=== PATIENT | female | born 1950 | race Caucasian/White ===

== ENCOUNTER 2018-08-28 10:30 | Outpatient (RCR) | payer MEDICARE, OTHER, SELFPAY ==
--- NOTE | 2018-05-01 17:43 | PT.OIE ---
Current Diagnoses Low back pain (05/01/18) Weakness (05/01/18) Past Medical History (Last Updated 05/01/18 @ 17:40 by Nichelle Hernandez, PT) Neck pain (Acute) Past Surgical History (Last Reviewed 05/01/18 @ 17:40 by Nichelle Hernandez, PT) Status post breast biopsy Status post delivery Status post delivery Status post hysterectomy (07/07/12) Provider Visit Care Team Role Provider Type Nory Holman MD Attending Provider Physician Primary Care Provider Specialty: [facility] Address: [address] [place] [address] Email: [email or web address] Physical Therapy Initial Evaluation PT-OP-A Visit Information Start: 05/01/18 09:12 Freq: Status: Active Protocol: Document 05/01/18 09:45 [facility] (Rec: 05/01/18 10:40 [facility] [id number]) Out-Patient Physical Therapy Visit Information Visit Information Visit Type Initial Evaluation Visit Start Time 09:45 Visit Stop Time 10:30 Total Visit Minutes 45 Visit Number 1 Number of MECHANICAL INSPECTOR Visits 0 PT-OP-B Current Condition Start: 05/01/18 09:12 Freq: Status: Active Protocol: Document 05/01/18 09:45 [facility] (Rec: 05/01/18 17:37 [facility] [id number]) Current Condition History of Current Condition History of Current Condition Pt reports last summer she was doing yard work all summer and in August, she woke up one morning and her back had gone out She could not stand up and has tried to be active and stretch to help with pain. Reports sharp pains are less but does not have her normal mobility and still gets caught hunched over sometimes and has to roll up the wall to get upright. She had a dexascan, which the MD told her showed no stenosis and her back looks great & bone density is good. Pt walks 2 miles 3 days a week along the [place]. Treatment Goals Patient/Caregiver Goals Make sure to not lose her mobility, be able to play with her 4 & 8 year old grandkids, stairs without pain, vacuum and dig in garden without pain . PT-OP-C Subjective Start: 05/01/18 09:12 Freq: Status: Active Protocol: Document 05/01/18 09:45 [facility] (Rec: 05/01/18 17:37 [facility] [id number]) Patient Questionnaires Oswestry Low Back Index Oswestry Score 10 Oswestry Impairment 20 to 39% Impaired (Score 20- 39) OP-PT Pain Assessment Pain Assessment Grid Paper Pain Assessment Grid Completed Yes Location Left Back Pain Location Details L>R LB & hip Intensity 5 Scale Used Numeric (1 - 10) Description Burning Sharp Frequency Intermittent Other Pain Aggravating Factors getting up in AM, inactivity ( sit extended) Other Pain Alleviating Factors roll up the wall, activity, hot bath, Advil Home Pain Medication Use Home Pain Medication Frequency Advil prn PT-OP-J Posture/Palpation/Skin Start: 05/01/18 09:12 Freq: Status: Active Protocol: Document 05/01/18 09:45 [facility] (Rec: 05/01/18 10:40 [facility] [id number]) Posture Evaluation [facility] Postural Classification System [facility] Postural Classifications Anterior/Posterior Vertebral Compression Test 1 Elbow Flexion Test 5 Lumbar Protective Mechanism Left AP 1 Lumbar Protective Mechanism Right AP 3 Lumbar Protective Mechanism Left PA 1 Lumbar Protective Mechanism Right PA 1 Palpation Assessment Location One Palpation Location Lumbar Palpation Findings Soft Tissue Tightness Tenderness Palpation Details QL, ES, glutes B PT-OP-K Range of Motion Start: 05/01/18 09:12 Freq: Status: Active Protocol: Document 05/01/18 09:45 [facility] (Rec: 05/01/18 10:40 [facility] [id number]) Lumbar Spine Range of Motion Lumbar Spine Active Degrees Flexion 43 Extension 20 Lateral Flexion Left 30 Lateral Flexion Right 25 Comments tight L with B lat flex PT-OP-L Special Tests Start: 05/01/18 09:12 Freq: Status: Active Protocol: Document 05/01/18 09:45 [facility] (Rec: 05/01/18 10:40 [facility] [id number]) Special Tests Lumbar Spine Special Tests Slump Test Results neg Straight Leg Raise Test Results neg B Comments NEG EXT SIT PT-OP-M Strength Start: 05/01/18 09:12 Freq: Status: Active Protocol: Document 05/01/18 09:45 [facility] (Rec: 05/01/18 10:40 [facility] [id number]) Hip Strength Hip Manual Muscle Testing Right Flexion (L2) 4 Good Extension (S1) 4- Good- Abduction 4+ Good+ External Rotation 4 Good Internal Rotation 4+ Good+ Left Flexion (L2) 4 Good Extension (S1) 4- Good- Abduction 4+ Good+ External Rotation 4 Good Internal Rotation 4+ Good+ Comments pain w/flex & abd in groin Knee Strength Knee Manual Muscle Testing Right Flexion (S2) 5 Normal Extension (L3) 5 Normal Left Flexion (S2) 5 Normal Extension (L3) 5 Normal Ankle/Foot Strength Ankle and Foot Manual Muscle Testing Right Dorsiflexion (L4) 5 Normal Left Dorsiflexion (L4) 5 Normal PT-OP-Q Treatments Start: 05/01/18 09:12 Freq: Status: Active Protocol: Document 05/01/18 09:45 [facility] (Rec: 05/01/18 10:40 [facility] [id number]) Therapeutic Exercises Supine Exercises 2 Supine Exercise Name LTR Side bilateral 1 Supine Exercise Name DKTC Side bilateral Self-Care/Home Management Treatment Education Other Education unlocking knees for posture, importance of posture PT-OP-R Modalities Start: 05/01/18 09:12 Freq: Status: Active Protocol: Document 05/01/18 09:45 [facility] (Rec: 05/01/18 10:40 [facility] [id number]) Hot Pack/Cold Pack Treatment Hot Pack Location LS Patient Position Hooklying Treatment Duration (minutes) 15 PT-OP-T Assessment and Plan Start: 05/01/18 09:12 Freq: Status: Active Protocol: Document 05/01/18 09:45 [facility] (Rec: 05/01/18 17:43 [facility] [id number]) Physical Therapy Assessment Rehab Potential Rehabilitation Potential Good Evaluation Complexity Number of Personal Factors/Comorbidities 1-2 Number of Body Systems Impaired 4 or More Clinical Presentation at Evaluation Stable Impairments Impairments Functional Activities Gait Pain Posture Strength Goals Four Impairment MMT Exceptional Student Education Aide Goal (LTG) 5/5 to allow pt to participate in all of her normal activities LTG Duration 07/01/18 Three Impairment posture Short Term Goal (STG) Pt will present with good posture without cueing STG Duration 05/31/18 Two Impairment pain Short Term Goal (STG) at worst 3/5 STG Duration 05/31/18 Prison Goal (LTG) at worst 1/5 LTG Duration 07/01/18 One Impairment JANIS Exceptional Student Education Aide Goal (LTG) 0 to show ability to do functional tasks LTG Duration by 07/01/18 Physical Therapy Plan Frequency and Duration Frequency of Treatment 2x/Week Duration of Treatment 2 months Plan of Care Start Date 05/01/18 Plan of Care End Date 07/01/18 Therapeutic Interventions Therapeutic Interventions Aquatic Therapy Balance Training Gait Training Home Exercise Program Joint Mobilizations Manual Therapy Soft Tissue Mobilization Taping Therapeutic Exercises Modalities Cold Pack/Ice Massage Electric Stimulation Hot Packs Traction- Mechanical Ultrasound Next Visit Focus/Plan Next Note Type Treatment Note Next Visit Plan Advance supine core, squats, lunges, STM & pelvic mobilizations prn Please Sign and Return: I have reviewed this Plan of Care and certify that the skilled therapy services above are required to meet the patient?s needs. Physician Signature Date Printed Name and Credentials Clinical Instructor Signature Printed Name and Credentials
--- NOTE | 2018-05-01 17:43 | PT.OPPOC ---
Current Diagnoses Low back pain (05/01/18) Weakness (05/01/18) Provider Visit Care Team Role Provider Type Nory Holman MD Attending Provider Physician Primary Care Provider Specialty: Family Practice Address: [address] [place] [address], [id number] Email: [email or web address] Plan Of Care PT-OP-T Assessment and Plan Start: 05/01/18 09:12 Freq: Status: Active Protocol: Document 05/01/18 09:45 [facility] (Rec: 05/01/18 17:43 [facility] [id number]) Physical Therapy Assessment Rehab Potential Rehabilitation Potential Good Evaluation Complexity Number of Personal Factors/Comorbidities 1-2 Number of Body Systems Impaired 4 or More Clinical Presentation at Evaluation Stable Impairments Impairments Functional Activities Gait Pain Posture Strength Goals Four Impairment MMT Angle Shear Operator Goal (LTG) 5/5 to allow pt to participate in all of her normal activities LTG Duration 07/01/18 Three Impairment posture Short Term Goal (STG) Pt will present with good posture without cueing STG Duration 05/31/18 Two Impairment pain Short Term Goal (STG) at worst 3/5 STG Duration 05/31/18 Custodial Goal (LTG) at worst 1/5 LTG Duration 07/01/18 One Impairment JANIS Angle Shear Operator Goal (LTG) 0 to show ability to do functional tasks LTG Duration by 07/01/18 Physical Therapy Plan Frequency and Duration Frequency of Treatment 2x/Week Duration of Treatment 2 months Plan of Care Start Date 05/01/18 Plan of Care End Date 07/01/18 Therapeutic Interventions Therapeutic Interventions Aquatic Therapy Balance Training Gait Training Home Exercise Program Joint Mobilizations Manual Therapy Soft Tissue Mobilization Taping Therapeutic Exercises Modalities Cold Pack/Ice Massage Electric Stimulation Hot Packs Traction- Mechanical Ultrasound Next Visit Focus/Plan Next Note Type Treatment Note Next Visit Plan Advance supine core, squats, lunges, STM & pelvic mobilizations prn Plan of Care Dates Plan of Care Start Date 05/01/18 Plan of Care End Date 07/01/18 Please Sign and Return: I have reviewed this Plan of Care and certify that the skilled therapy services above are required to meet the patient?s needs. Physician Signature Date Printed Name and Credentials Clinical Instructor Signature Printed Name and Credentials
--- NOTE | 2018-05-27 16:42 | PT.OTN ---
Current Diagnoses Low back pain (05/27/18) Physical Therapy Treatment Note PT-OP-A Visit Information Start: 05/01/18 09:12 Freq: Status: Active Protocol: Document 05/27/18 10:27 [facility] (Rec: 05/27/18 16:41 [facility] [id number]) Out-Patient Physical Therapy Visit Information Visit Information Visit Type Treatment Note Visit Start Time 10:30 Visit Stop Time 11:25 Total Visit Minutes 55 Visit Number 2 Number of NEEDLE GRINDER Visits 0 PT-OP-B Current Condition Start: 05/01/18 09:12 Freq: Status: Active Protocol: Document 05/01/18 09:45 [facility] (Rec: 05/01/18 17:37 [facility] [id number]) Current Condition History of Current Condition History of Current Condition Pt reports last summer she was doing yard work all summer and in August, she woke up one morning and her back had gone out She could not stand up and has tried to be active and stretch to help with pain. Reports sharp pains are less but does not have her normal mobility and still gets caught hunched over sometimes and has to roll up the wall to get upright. She had a dexascan, which the MD told her showed no stenosis and her back looks great & bone density is good. Pt walks 2 miles 3 days a week along the [place]. Treatment Goals Patient/Caregiver Goals Make sure to not lose her mobility, be able to play with her 4 & 8 year old grandkids, stairs without pain, vacuum and dig in garden without pain . PT-OP-C Subjective Start: 05/01/18 09:12 Freq: Status: Active Protocol: Document 05/27/18 10:27 [facility] (Rec: 05/27/18 16:41 [facility] [id number]) OP-PT Subjective Patient Comments Patient Comments Noncompliance with exercises so far PT-OP-J Posture/Palpation/Skin Start: 05/01/18 09:12 Freq: Status: Active Protocol: Document 05/01/18 09:45 [facility] (Rec: 05/01/18 10:40 [facility] [id number]) Posture Evaluation [facility] Postural Classification System [facility] Postural Classifications Anterior/Posterior Vertebral Compression Test 1 Elbow Flexion Test 5 Lumbar Protective Mechanism Left AP 1 Lumbar Protective Mechanism Right AP 3 Lumbar Protective Mechanism Left PA 1 Lumbar Protective Mechanism Right PA 1 Palpation Assessment Location One Palpation Location Lumbar Palpation Findings Soft Tissue Tightness Tenderness Palpation Details QL, ES, glutes B PT-OP-K Range of Motion Start: 05/01/18 09:12 Freq: Status: Active Protocol: Document 05/01/18 09:45 [facility] (Rec: 05/01/18 10:40 [facility] [id number]) Lumbar Spine Range of Motion Lumbar Spine Active Degrees Flexion 43 Extension 20 Lateral Flexion Left 30 Lateral Flexion Right 25 Comments tight L with B lat flex PT-OP-L Special Tests Start: 05/01/18 09:12 Freq: Status: Active Protocol: Document 05/01/18 09:45 [facility] (Rec: 05/01/18 10:40 [facility] [id number]) Special Tests Lumbar Spine Special Tests Slump Test Results neg Straight Leg Raise Test Results neg B Comments NEG EXT SIT PT-OP-M Strength Start: 05/01/18 09:12 Freq: Status: Active Protocol: Document 05/01/18 09:45 [facility] (Rec: 05/01/18 10:40 [facility] [id number]) Hip Strength Hip Manual Muscle Testing Right Flexion (L2) 4 Good Extension (S1) 4- Good- Abduction 4+ Good+ External Rotation 4 Good Internal Rotation 4+ Good+ Left Flexion (L2) 4 Good Extension (S1) 4- Good- Abduction 4+ Good+ External Rotation 4 Good Internal Rotation 4+ Good+ Comments pain w/flex & abd in groin Knee Strength Knee Manual Muscle Testing Right Flexion (S2) 5 Normal Extension (L3) 5 Normal Left Flexion (S2) 5 Normal Extension (L3) 5 Normal Ankle/Foot Strength Ankle and Foot Manual Muscle Testing Right Dorsiflexion (L4) 5 Normal Left Dorsiflexion (L4) 5 Normal PT-OP-Q Treatments Start: 05/01/18 09:12 Freq: Status: Active Protocol: Document 05/27/18 10:27 [facility] (Rec: 05/27/18 16:41 [facility] [id number]) Therapeutic Exercises Supine Exercises 3 Supine Exercise Name iso single leg hip flex 2 Supine Exercise Name LTR Side bilateral Comments focus on core 1 Supine Exercise Name DKTC Side bilateral Prone Exercises 1 Prone Exercise Name Hip ER Resistance L1 Equipment Used tband Reps/Minutes prone Therapeutic Activity Therapeutic Activity 2 Comments edu for AM exercises & importance; Discussed not staying in seated position for extended 1 Name sitting posture Comments supported sitting and unsupported Manual Therapy Treatment Joint Mobilizations 2 Joint sacrum Direction caudal & R UPA FM Body Position Prone 1 Joint hip Direction on axis ER FM Comments B w/ prolonged hold after Manual Techniques 1 Type core faciliation Comments w/diagonal pattern use of UEs PT-OP-R Modalities Start: 05/01/18 09:12 Freq: Status: Active Protocol: Document 05/27/18 10:27 [facility] (Rec: 05/27/18 16:41 [facility] [id number]) Hot Pack/Cold Pack Treatment Hot Pack Location LS Patient Position Hooklying Treatment Duration (minutes) 15 PT-OP-T Assessment and Plan Start: 05/01/18 09:12 Freq: Status: Active Protocol: Document 05/27/18 10:27 [facility] (Rec: 05/27/18 16:41 [facility] [id number]) Physical Therapy Assessment Goals Four Impairment MMT Custodial Goal (LTG) 5/5 to allow pt to participate in all of her normal activities LTG Duration 07/01/18 Three Impairment posture Short Term Goal (STG) Pt will present with good posture without cueing STG Duration 05/31/18 Two Impairment pain Short Term Goal (STG) at worst 3/5 STG Duration 05/31/18 Custodial Goal (LTG) at worst 1/5 LTG Duration 07/01/18 One Impairment JANIS Custodial Goal (LTG) 0 to show ability to do functional tasks LTG Duration by 07/01/18 Assessment Summary Assessment Pt had improvement of core activation after manual rx & with facilitation after diagonal facilitation. Physical Therapy Plan Frequency and Duration Frequency of Treatment 2x/Week Duration of Treatment 2 months Plan of Care Start Date 05/01/18 Plan of Care End Date 07/01/18 Next Visit Focus/Plan Next Note Type Treatment Note Next Visit Plan Cont to advance core & facilitation
--- NOTE | 2018-05-29 15:49 | PT.OTN ---
Current Diagnoses Low back pain (05/29/18) Physical Therapy Treatment Note PT-OP-A Visit Information Start: 05/01/18 09:12 Freq: Status: Active Protocol: Document 05/29/18 13:04 [facility] (Rec: 05/29/18 13:06 [facility] [id number]) Out-Patient Physical Therapy Visit Information Visit Information Visit Type Treatment Note Visit Start Time 10:30 Visit Stop Time 11:30 Total Visit Minutes 60 Visit Number 3 Number of BUILDING TRADES TEACHER Visits 0 PT-OP-B Current Condition Start: 05/01/18 09:12 Freq: Status: Active Protocol: Document 05/01/18 09:45 [facility] (Rec: 05/01/18 17:37 [facility] [id number]) Current Condition History of Current Condition History of Current Condition Pt reports last summer she was doing yard work all summer and in August, she woke up one morning and her back had gone out She could not stand up and has tried to be active and stretch to help with pain. Reports sharp pains are less but does not have her normal mobility and still gets caught hunched over sometimes and has to roll up the wall to get upright. She had a dexascan, which the MD told her showed no stenosis and her back looks great & bone density is good. Pt walks 2 miles 3 days a week along the [place]. Treatment Goals Patient/Caregiver Goals Make sure to not lose her mobility, be able to play with her 4 & 8 year old grandkids, stairs without pain, vacuum and dig in garden without pain . PT-OP-C Subjective Start: 05/01/18 09:12 Freq: Status: Active Protocol: Document 05/29/18 13:04 [facility] (Rec: 05/29/18 15:49 [facility] [id number]) OP-PT Subjective Patient Comments Patient Comments Reports she hasn't tried exercises yet PT-OP-J Posture/Palpation/Skin Start: 05/01/18 09:12 Freq: Status: Active Protocol: Document 05/01/18 09:45 [facility] (Rec: 05/01/18 10:40 [facility] [id number]) Posture Evaluation [facility] Postural Classification System [facility] Postural Classifications Anterior/Posterior Vertebral Compression Test 1 Elbow Flexion Test 5 Lumbar Protective Mechanism Left AP 1 Lumbar Protective Mechanism Right AP 3 Lumbar Protective Mechanism Left PA 1 Lumbar Protective Mechanism Right PA 1 Palpation Assessment Location One Palpation Location Lumbar Palpation Findings Soft Tissue Tightness Tenderness Palpation Details QL, ES, glutes B PT-OP-K Range of Motion Start: 05/01/18 09:12 Freq: Status: Active Protocol: Document 05/01/18 09:45 [facility] (Rec: 05/01/18 10:40 [facility] [id number]) Lumbar Spine Range of Motion Lumbar Spine Active Degrees Flexion 43 Extension 20 Lateral Flexion Left 30 Lateral Flexion Right 25 Comments tight L with B lat flex PT-OP-L Special Tests Start: 05/01/18 09:12 Freq: Status: Active Protocol: Document 05/01/18 09:45 [facility] (Rec: 05/01/18 10:40 [facility] [id number]) Special Tests Lumbar Spine Special Tests Slump Test Results neg Straight Leg Raise Test Results neg B Comments NEG EXT SIT PT-OP-M Strength Start: 05/01/18 09:12 Freq: Status: Active Protocol: Document 05/01/18 09:45 [facility] (Rec: 05/01/18 10:40 [facility] [id number]) Hip Strength Hip Manual Muscle Testing Right Flexion (L2) 4 Good Extension (S1) 4- Good- Abduction 4+ Good+ External Rotation 4 Good Internal Rotation 4+ Good+ Left Flexion (L2) 4 Good Extension (S1) 4- Good- Abduction 4+ Good+ External Rotation 4 Good Internal Rotation 4+ Good+ Comments pain w/flex & abd in groin Knee Strength Knee Manual Muscle Testing Right Flexion (S2) 5 Normal Extension (L3) 5 Normal Left Flexion (S2) 5 Normal Extension (L3) 5 Normal Ankle/Foot Strength Ankle and Foot Manual Muscle Testing Right Dorsiflexion (L4) 5 Normal Left Dorsiflexion (L4) 5 Normal PT-OP-Q Treatments Start: 05/01/18 09:12 Freq: Status: Active Protocol: Document 05/29/18 13:04 [facility] (Rec: 05/29/18 15:49 [facility] [id number]) Therapeutic Exercises Supine Exercises 3 Supine Exercise Name iso single leg hip flex 2 Supine Exercise Name LTR Side bilateral Comments focus on core 1 Supine Exercise Name DKTC Side bilateral Prone Exercises 1 Prone Exercise Name Hip ER Resistance L1 Equipment Used tband Reps/Minutes prone Therapeutic Activity Therapeutic Activity 2 Comments Discussed importance of HEP & difference between dynamic and static stretching and appropriate time for each. 1 Name sitting posture Comments supported sitting and unsupported-quick review Manual Therapy Treatment Soft Tissue Mobilization 1 Body Location R glutes Mobilization Type Rolling Intensity/Depth Moderate Joint Mobilizations 2 Joint sacrum Direction caudal & R UPA FM Body Position Prone 1 Joint hip Direction on axis ER FM Comments B w/ prolonged hold after PT-OP-R Modalities Start: 05/01/18 09:12 Freq: Status: Active Protocol: Document 05/29/18 13:04 [facility] (Rec: 05/29/18 13:06 [facility] [id number]) Hot Pack/Cold Pack Treatment Hot Pack Location LS Patient Position Hooklying Treatment Duration (minutes) 15 PT-OP-T Assessment and Plan Start: 05/01/18 09:12 Freq: Status: Active Protocol: Document 05/29/18 13:04 [facility] (Rec: 05/29/18 13:06 [facility] [id number]) Physical Therapy Assessment Goals Four Impairment MMT Snf Goal (LTG) 5/5 to allow pt to participate in all of her normal activities LTG Duration 07/01/18 Three Impairment posture Short Term Goal (STG) Pt will present with good posture without cueing STG Duration 05/31/18 Two Impairment pain Short Term Goal (STG) at worst 3/5 STG Duration 18 Snf Goal (LTG) at worst 1/5 LTG Duration 07/01/18 One Impairment JANIS Snf Goal (LTG) 0 to show ability to do functional tasks LTG Duration by 07/01/18 Assessment Summary Assessment Improved mobility of sacrum & hips with mobilizations with pt reporting improved feeling to LB. Cueing required with exercises. Physical Therapy Plan Frequency and Duration Frequency of Treatment 2x/Week Duration of Treatment 2 months Plan of Care Start Date 05/01/18 Plan of Care End Date 07/01/18 Next Visit Focus/Plan Next Note Type Treatment Note Next Visit Plan Cont to advance core & facilitation
--- NOTE | 2018-06-03 11:18 | PT.OTN ---
Current Diagnoses Low back pain (06/03/18) Physical Therapy Treatment Note PT-OP-A Visit Information Start: 05/01/18 09:12 Freq: Status: Active Protocol: Document 06/03/18 10:29 [facility] (Rec: 06/03/18 11:18 [facility] [id number]) Out-Patient Physical Therapy Visit Information Visit Information Visit Type Treatment Note Visit Start Time 10:30 Visit Stop Time 11:30 Total Visit Minutes 60 Visit Number 4 Number of GUM ROLLING MACHINE TENDER Visits 0 PT-OP-B Current Condition Start: 05/01/18 09:12 Freq: Status: Active Protocol: Document 05/01/18 09:45 [facility] (Rec: 05/01/18 17:37 [facility] [id number]) Current Condition History of Current Condition History of Current Condition Pt reports last summer she was doing yard work all summer and in August, she woke up one morning and her back had gone out She could not stand up and has tried to be active and stretch to help with pain. Reports sharp pains are less but does not have her normal mobility and still gets caught hunched over sometimes and has to roll up the wall to get upright. She had a dexascan, which the MD told her showed no stenosis and her back looks great & bone density is good. Pt walks 2 miles 3 days a week along the [employer] [place]. Treatment Goals Patient/Caregiver Goals Make sure to not lose her mobility, be able to play with her 4 & 8 year old grandkids, stairs without pain, vacuum and dig in garden without pain . PT-OP-C Subjective Start: 05/01/18 09:12 Freq: Status: Active Protocol: Document 05/29/18 13:04 [facility] (Rec: 05/29/18 15:49 [facility] [id number]) OP-PT Subjective Patient Comments Patient Comments Reports she hasn't tried exercises yet PT-OP-J Posture/Palpation/Skin Start: 05/01/18 09:12 Freq: Status: Active Protocol: Document 05/01/18 09:45 [facility] (Rec: 05/01/18 10:40 [facility] [id number]) Posture Evaluation Meenakshi Postural Classification System Meenakshi Postural Classifications Anterior/Posterior Vertebral Compression Test 1 Elbow Flexion Test 5 Lumbar Protective Mechanism Left AP 1 Lumbar Protective Mechanism Right AP 3 Lumbar Protective Mechanism Left PA 1 Lumbar Protective Mechanism Right PA 1 Palpation Assessment Location One Palpation Location Lumbar Palpation Findings Soft Tissue Tightness Tenderness Palpation Details QL, ES, glutes B PT-OP-K Range of Motion Start: 05/01/18 09:12 Freq: Status: Active Protocol: Document 05/01/18 09:45 [facility] (Rec: 05/01/18 10:40 [facility] [id number]) Lumbar Spine Range of Motion Lumbar Spine Active Degrees Flexion 43 Extension 20 Lateral Flexion Left 30 Lateral Flexion Right 25 Comments tight L with B lat flex PT-OP-L Special Tests Start: 05/01/18 09:12 Freq: Status: Active Protocol: Document 05/01/18 09:45 [facility] (Rec: 05/01/18 10:40 [facility] [id number]) Special Tests Lumbar Spine Special Tests Slump Test Results neg Straight Leg Raise Test Results neg B Comments NEG EXT SIT PT-OP-M Strength Start: 05/01/18 09:12 Freq: Status: Active Protocol: Document 05/01/18 09:45 [facility] (Rec: 05/01/18 10:40 [facility] [id number]) Hip Strength Hip Manual Muscle Testing Right Flexion (L2) 4 Good Extension (S1) 4- Good- Abduction 4+ Good+ External Rotation 4 Good Internal Rotation 4+ Good+ Left Flexion (L2) 4 Good Extension (S1) 4- Good- Abduction 4+ Good+ External Rotation 4 Good Internal Rotation 4+ Good+ Comments pain w/flex & abd in groin Knee Strength Knee Manual Muscle Testing Right Flexion (S2) 5 Normal Extension (L3) 5 Normal Left Flexion (S2) 5 Normal Extension (L3) 5 Normal Ankle/Foot Strength Ankle and Foot Manual Muscle Testing Right Dorsiflexion (L4) 5 Normal Left Dorsiflexion (L4) 5 Normal PT-OP-Q Treatments Start: 05/01/18 09:12 Freq: Status: Active Protocol: Document 06/03/18 10:29 [facility] (Rec: 06/03/18 11:18 [facility] [id number]) Therapeutic Exercises Supine Exercises 5 Supine Exercise Name january to R with core faciliation 4 Supine Exercise Name bridge Reps/Minutes 15 Comments w/traction facilitiaton 3 Supine Exercise Name iso single leg hip flex 1 Supine Exercise Name DKTC Side bilateral Therapeutic Activity Therapeutic Activity 3 Name sleep position Comments s/l Manual Therapy Treatment Soft Tissue Mobilization 2 Body Location LS fascae Mobilization Type Myofascial Release Comments FM Joint Mobilizations 2 Joint sacrum Direction caudal & R UPA FM Body Position Prone 1 Joint hip Direction on axis ER FM Comments B w/ prolonged hold after PT-OP-R Modalities Start: 05/01/18 09:12 Freq: Status: Active Protocol: Document 06/03/18 10:29 [facility] (Rec: 06/03/18 11:18 [facility] [id number]) Hot Pack/Cold Pack Treatment Hot Pack Location LS Patient Position Hooklying Treatment Duration (minutes) 15 PT-OP-T Assessment and Plan Start: 05/01/18 09:12 Freq: Status: Active Protocol: Document 06/03/18 10:29 [facility] (Rec: 06/03/18 11:18 [facility] [id number]) Physical Therapy Assessment Goals Four Impairment MMT [facility] Goal (LTG) 5/5 to allow pt to participate in all of her normal activities LTG Duration 07/01/18 Three Impairment posture Short Term Goal (STG) Pt will present with good posture without cueing STG Duration 05/31/18 Two Impairment pain Short Term Goal (STG) at worst 3/5 STG Duration 05/31/18 Plier Worker Goal (LTG) at worst 1/5 LTG Duration 07/01/18 One Impairment JANIS [facility] Goal (LTG) 0 to show ability to do functional tasks LTG Duration by 07/01/18 Assessment Summary Assessment Pt able to do bridge after facilitated. Improved hip mobility today and sacrum odairvm1n with mobilization. Cueing required for correct duration hold. Physical Therapy Plan Frequency and Duration Frequency of Treatment 2x/Week Duration of Treatment 2 months Plan of Care Start Date 05/01/18 Plan of Care End Date 07/01/18 Next Visit Focus/Plan Next Note Type Treatment Note Next Visit Plan Cont to advance core & facilitation
--- NOTE | 2018-06-05 16:50 | PT.OTN ---
Current Diagnoses Low back pain (06/05/18) Physical Therapy Treatment Note PT-OP-A Visit Information Start: 05/01/18 09:12 Freq: Status: Active Protocol: Document 06/05/18 16:40 [facility] (Rec: 06/05/18 16:49 [facility] [id number]) Out-Patient Physical Therapy Visit Information Visit Information Visit Type Treatment Note Visit Start Time 10:30 Visit Stop Time 11:30 Total Visit Minutes 60 PT-OP-B Current Condition Start: 05/01/18 09:12 Freq: Status: Active Protocol: Document 05/01/18 09:45 [facility] (Rec: 05/01/18 17:37 [facility] [id number]) Current Condition History of Current Condition History of Current Condition Pt reports last summer she was doing yard work all summer and in August, she woke up one morning and her back had gone out She could not stand up and has tried to be active and stretch to help with pain. Reports sharp pains are less but does not have her normal mobility and still gets caught hunched over sometimes and has to roll up the wall to get upright. She had a dexascan, which the MD told her showed no stenosis and her back looks great & bone density is good. Pt walks 2 miles 3 days a week along the [employer] [place]. Treatment Goals Patient/Caregiver Goals Make sure to not lose her mobility, be able to play with her 4 & 8 year old grandkids, stairs without pain, vacuum and dig in garden without pain . PT-OP-C Subjective Start: 05/01/18 09:12 Freq: Status: Active Protocol: Document 06/05/18 16:40 [facility] (Rec: 06/05/18 16:50 [facility] [id number]) OP-PT Subjective Patient Comments Patient Comments Pt reports she did her exercises yesterday. PT-OP-J Posture/Palpation/Skin Start: 05/01/18 09:12 Freq: Status: Active Protocol: Document 05/01/18 09:45 [facility] (Rec: 05/01/18 10:40 [facility] [id number]) Posture Evaluation Meenakshi Postural Classification System Meenakshi Postural Classifications Anterior/Posterior Vertebral Compression Test 1 Elbow Flexion Test 5 Lumbar Protective Mechanism Left AP 1 Lumbar Protective Mechanism Right AP 3 Lumbar Protective Mechanism Left PA 1 Lumbar Protective Mechanism Right PA 1 Palpation Assessment Location One Palpation Location Lumbar Palpation Findings Soft Tissue Tightness Tenderness Palpation Details QL, ES, glutes B PT-OP-K Range of Motion Start: 05/01/18 09:12 Freq: Status: Active Protocol: Document 05/01/18 09:45 [facility] (Rec: 05/01/18 10:40 [facility] [id number]) Lumbar Spine Range of Motion Lumbar Spine Active Degrees Flexion 43 Extension 20 Lateral Flexion Left 30 Lateral Flexion Right 25 Comments tight L with B lat flex PT-OP-L Special Tests Start: 05/01/18 09:12 Freq: Status: Active Protocol: Document 05/01/18 09:45 [facility] (Rec: 05/01/18 10:40 [facility] [id number]) Special Tests Lumbar Spine Special Tests Slump Test Results neg Straight Leg Raise Test Results neg B Comments NEG EXT SIT PT-OP-M Strength Start: 05/01/18 09:12 Freq: Status: Active Protocol: Document 05/01/18 09:45 [facility] (Rec: 05/01/18 10:40 [facility] [id number]) Hip Strength Hip Manual Muscle Testing Right Flexion (L2) 4 Good Extension (S1) 4- Good- Abduction 4+ Good+ External Rotation 4 Good Internal Rotation 4+ Good+ Left Flexion (L2) 4 Good Extension (S1) 4- Good- Abduction 4+ Good+ External Rotation 4 Good Internal Rotation 4+ Good+ Comments pain w/flex & abd in groin Knee Strength Knee Manual Muscle Testing Right Flexion (S2) 5 Normal Extension (L3) 5 Normal Left Flexion (S2) 5 Normal Extension (L3) 5 Normal Ankle/Foot Strength Ankle and Foot Manual Muscle Testing Right Dorsiflexion (L4) 5 Normal Left Dorsiflexion (L4) 5 Normal PT-OP-Q Treatments Start: 05/01/18 09:12 Freq: Status: Active Protocol: Document 06/05/18 16:40 [facility] (Rec: 06/05/18 16:49 [facility] [id number]) Therapeutic Exercises Sidelying Exercises 1 Sidelying Exercise Name abd along wall Side bilateral Reps/Minutes 15 Standing Exercises 1 Standing Exercise Name squat with ruler on back Other Exercises 1 Other Exercise Name quad hip ext Side bilateral Reps/Minutes 30 Comments chart on back for pelvic position Therapeutic Activity Therapeutic Activity 2 Comments sit to stand weight shift & importance of seated position Manual Therapy Treatment Joint Mobilizations 2 Joint sacrum Direction caudal & R UPA FM Body Position Prone 1 Joint hip Direction on axis ER FM Comments B w/ prolonged hold after PT-OP-R Modalities Start: 05/01/18 09:12 Freq: Status: Active Protocol: Document 06/05/18 16:40 [facility] (Rec: 06/05/18 16:49 [facility] [id number]) Hot Pack/Cold Pack Treatment Hot Pack Location LS Patient Position Hooklying Treatment Duration (minutes) 15 PT-OP-T Assessment and Plan Start: 05/01/18 09:12 Freq: Status: Active Protocol: Document 06/05/18 16:40 [facility] (Rec: 06/05/18 16:49 [facility] [id number]) Physical Therapy Assessment Goals Four Impairment MMT Group Home Goal (LTG) 5/5 to allow pt to participate in all of her normal activities LTG Duration 07/01/18 Three Impairment posture Short Term Goal (STG) Pt will present with good posture without cueing STG Duration 05/31/18 Two Impairment pain Short Term Goal (STG) at worst 3/5 STG Duration 05/31/18 Group Home Goal (LTG) at worst 1/5 LTG Duration 07/01/18 One Impairment JANIS Embedded Software Programmer Goal (LTG) 0 to show ability to do functional tasks LTG Duration by 07/01/18 Assessment Summary Assessment Pt had significant difficulty and required significant cueing to maintain neutral for quadruped ext & hip abd in s/ l at wall. She does well with squat and sit to stand when focused on sitting position & discussed importance of sitting in good posture to make sit to stand easier Physical Therapy Plan Frequency and Duration Frequency of Treatment 2x/Week Duration of Treatment 2 months Plan of Care Start Date 05/01/18 Plan of Care End Date 07/01/18 Next Visit Focus/Plan Next Note Type Treatment Note Next Visit Plan Cont to advance core facilitation & activation
--- NOTE | 2018-06-10 12:13 | PT.OTN ---
Current Diagnoses Low back pain (06/10/18) Physical Therapy Treatment Note PT-OP-A Visit Information Start: 05/01/18 09:12 Freq: Status: Active Protocol: Document 06/10/18 10:32 [facility] (Rec: 06/10/18 12:12 [facility] [id number]) Out-Patient Physical Therapy Visit Information Visit Information Visit Type Treatment Note Visit Start Time 10:30 Visit Stop Time 11:30 Total Visit Minutes 60 Visit Number 5 PT-OP-B Current Condition Start: 05/01/18 09:12 Freq: Status: Active Protocol: Document 05/01/18 09:45 [facility] (Rec: 05/01/18 17:37 [facility] [id number]) Current Condition History of Current Condition History of Current Condition Pt reports last summer she was doing yard work all summer and in August, she woke up one morning and her back had gone out She could not stand up and has tried to be active and stretch to help with pain. Reports sharp pains are less but does not have her normal mobility and still gets caught hunched over sometimes and has to roll up the wall to get upright. She had a dexascan, which the MD told her showed no stenosis and her back looks great & bone density is good. Pt walks 2 miles 3 days a week along the [employer] [place]. Treatment Goals Patient/Caregiver Goals Make sure to not lose her mobility, be able to play with her 4 & 8 year old grandkids, stairs without pain, vacuum and dig in garden without pain . PT-OP-C Subjective Start: 05/01/18 09:12 Freq: Status: Active Protocol: Document 06/10/18 10:32 [facility] (Rec: 06/10/18 12:12 [facility] [id number]) OP-PT Subjective Patient Comments Patient Comments Reports she is feeling pretty good today. PT-OP-J Posture/Palpation/Skin Start: 05/01/18 09:12 Freq: Status: Active Protocol: Document 05/01/18 09:45 [facility] (Rec: 05/01/18 10:40 [facility] [id number]) Posture Evaluation Meenakshi Postural Classification System Meenakshi Postural Classifications Anterior/Posterior Vertebral Compression Test 1 Elbow Flexion Test 5 Lumbar Protective Mechanism Left AP 1 Lumbar Protective Mechanism Right AP 3 Lumbar Protective Mechanism Left PA 1 Lumbar Protective Mechanism Right PA 1 Palpation Assessment Location One Palpation Location Lumbar Palpation Findings Soft Tissue Tightness Tenderness Palpation Details QL, ES, glutes B PT-OP-K Range of Motion Start: 05/01/18 09:12 Freq: Status: Active Protocol: Document 05/01/18 09:45 [facility] (Rec: 05/01/18 10:40 [facility] [id number]) Lumbar Spine Range of Motion Lumbar Spine Active Degrees Flexion 43 Extension 20 Lateral Flexion Left 30 Lateral Flexion Right 25 Comments tight L with B lat flex PT-OP-L Special Tests Start: 05/01/18 09:12 Freq: Status: Active Protocol: Document 05/01/18 09:45 [facility] (Rec: 05/01/18 10:40 [facility] [id number]) Special Tests Lumbar Spine Special Tests Slump Test Results neg Straight Leg Raise Test Results neg B Comments NEG EXT SIT PT-OP-M Strength Start: 05/01/18 09:12 Freq: Status: Active Protocol: Document 05/01/18 09:45 [facility] (Rec: 05/01/18 10:40 [facility] [id number]) Hip Strength Hip Manual Muscle Testing Right Flexion (L2) 4 Good Extension (S1) 4- Good- Abduction 4+ Good+ External Rotation 4 Good Internal Rotation 4+ Good+ Left Flexion (L2) 4 Good Extension (S1) 4- Good- Abduction 4+ Good+ External Rotation 4 Good Internal Rotation 4+ Good+ Comments pain w/flex & abd in groin Knee Strength Knee Manual Muscle Testing Right Flexion (S2) 5 Normal Extension (L3) 5 Normal Left Flexion (S2) 5 Normal Extension (L3) 5 Normal Ankle/Foot Strength Ankle and Foot Manual Muscle Testing Right Dorsiflexion (L4) 5 Normal Left Dorsiflexion (L4) 5 Normal PT-OP-Q Treatments Start: 05/01/18 09:12 Freq: Status: Active Protocol: Document 06/10/18 10:32 [facility] (Rec: 06/10/18 12:12 [facility] [id number]) Therapeutic Activity Therapeutic Activity 4 Name Lifting mechanics Comments for lifting grandchildren Manual Therapy Treatment Soft Tissue Mobilization 4 Body Location L hip flexor region Mobilization Type Sustained Pressure 3 Body Location QL Mobilization Type Rolling 2 Body Location LS fascae Mobilization Type Myofascial Release Comments FM Joint Mobilizations 2 Joint sacrum Direction caudal & R UPA FM Body Position Prone 1 Joint hip Direction inf glide FM PT-OP-R Modalities Start: 05/01/18 09:12 Freq: Status: Active Protocol: Document 06/10/18 10:32 [facility] (Rec: 06/10/18 12:12 [facility] [id number]) Hot Pack/Cold Pack Treatment Hot Pack Location LS Patient Position Hooklying Treatment Duration (minutes) 15 PT-OP-T Assessment and Plan Start: 05/01/18 09:12 Freq: Status: Active Protocol: Document 06/10/18 10:32 [facility] (Rec: 06/10/18 12:12 [facility] [id number]) Physical Therapy Assessment Goals Four Impairment MMT Retirement Goal (LTG) 5/5 to allow pt to participate in all of her normal activities LTG Duration 07/01/18 Three Impairment posture Short Term Goal (STG) Pt will present with good posture without cueing STG Duration 05/31/18 Two Impairment pain Short Term Goal (STG) at worst 3/5 STG Duration 05/31/18 Retirement Goal (LTG) at worst 1/5 LTG Duration 07/01/18 One Impairment JANIS Bottle Inspector Goal (LTG) 0 to show ability to do functional tasks LTG Duration by 07/01/18 Assessment Summary Assessment Improved core faciliation after hip mobilization. Pt required cueing for good lifting mechanics. Physical Therapy Plan Frequency and Duration Frequency of Treatment 2x/Week Duration of Treatment 2 months Plan of Care Start Date 05/01/18 Plan of Care End Date 07/01/18 Next Visit Focus/Plan Next Note Type Treatment Note Next Visit Plan Cont to advance core facilitation & activation
--- NOTE | 2018-06-12 11:58 | PT.OTN ---
Current Diagnoses Low back pain (06/12/18) Physical Therapy Treatment Note PT-OP-A Visit Information Start: 05/01/18 09:12 Freq: Status: Active Protocol: Document 06/12/18 11:48 [facility] (Rec: 06/12/18 11:58 [facility] [id number]) Out-Patient Physical Therapy Visit Information Visit Information Visit Type Treatment Note Visit Start Time 10:30 Visit Stop Time 11:30 Total Visit Minutes 60 Visit Number 6 PT-OP-B Current Condition Start: 05/01/18 09:12 Freq: Status: Active Protocol: Document 05/01/18 09:45 [facility] (Rec: 05/01/18 17:37 [facility] [id number]) Current Condition History of Current Condition History of Current Condition Pt reports last summer she was doing yard work all summer and in August, she woke up one morning and her back had gone out She could not stand up and has tried to be active and stretch to help with pain. Reports sharp pains are less but does not have her normal mobility and still gets caught hunched over sometimes and has to roll up the wall to get upright. She had a dexascan, which the MD told her showed no stenosis and her back looks great & bone density is good. Pt walks 2 miles 3 days a week along the [address] [place]. Treatment Goals Patient/Caregiver Goals Make sure to not lose her mobility, be able to play with her 4 & 8 year old grandkids, stairs without pain, vacuum and dig in garden without pain . PT-OP-C Subjective Start: 05/01/18 09:12 Freq: Status: Active Protocol: Document 06/12/18 11:48 [facility] (Rec: 06/12/18 11:58 [facility] [id number]) OP-PT Subjective Patient Comments Patient Comments Reports back is doing better, but has noticed her L hip flexor bothering her. PT-OP-J Posture/Palpation/Skin Start: 05/01/18 09:12 Freq: Status: Active Protocol: Document 05/01/18 09:45 [facility] (Rec: 05/01/18 10:40 [facility] [id number]) Posture Evaluation Meenakshi Postural Classification System Meenakshi Postural Classifications Anterior/Posterior Vertebral Compression Test 1 Elbow Flexion Test 5 Lumbar Protective Mechanism Left AP 1 Lumbar Protective Mechanism Right AP 3 Lumbar Protective Mechanism Left PA 1 Lumbar Protective Mechanism Right PA 1 Palpation Assessment Location One Palpation Location Lumbar Palpation Findings Soft Tissue Tightness Tenderness Palpation Details QL, ES, glutes B PT-OP-K Range of Motion Start: 05/01/18 09:12 Freq: Status: Active Protocol: Document 05/01/18 09:45 [facility] (Rec: 05/01/18 10:40 [facility] [id number]) Lumbar Spine Range of Motion Lumbar Spine Active Degrees Flexion 43 Extension 20 Lateral Flexion Left 30 Lateral Flexion Right 25 Comments tight L with B lat flex PT-OP-L Special Tests Start: 05/01/18 09:12 Freq: Status: Active Protocol: Document 05/01/18 09:45 [facility] (Rec: 05/01/18 10:40 [facility] [id number]) Special Tests Lumbar Spine Special Tests Slump Test Results neg Straight Leg Raise Test Results neg B Comments NEG EXT SIT PT-OP-M Strength Start: 05/01/18 09:12 Freq: Status: Active Protocol: Document 05/01/18 09:45 [facility] (Rec: 05/01/18 10:40 [facility] [id number]) Hip Strength Hip Manual Muscle Testing Right Flexion (L2) 4 Good Extension (S1) 4- Good- Abduction 4+ Good+ External Rotation 4 Good Internal Rotation 4+ Good+ Left Flexion (L2) 4 Good Extension (S1) 4- Good- Abduction 4+ Good+ External Rotation 4 Good Internal Rotation 4+ Good+ Comments pain w/flex & abd in groin Knee Strength Knee Manual Muscle Testing Right Flexion (S2) 5 Normal Extension (L3) 5 Normal Left Flexion (S2) 5 Normal Extension (L3) 5 Normal Ankle/Foot Strength Ankle and Foot Manual Muscle Testing Right Dorsiflexion (L4) 5 Normal Left Dorsiflexion (L4) 5 Normal PT-OP-Q Treatments Start: 05/01/18 09:12 Freq: Status: Active Protocol: Document 06/12/18 11:48 [facility] (Rec: 06/12/18 11:56 [facility] [id number]) Therapeutic Exercises Supine Exercises 6 Supine Exercise Name Lizandro test stretch Standing Exercises 2 Standing Exercise Name hip flexor stretch Manual Therapy Treatment Soft Tissue Mobilization 5 Body Location visceral mobs Mobilization Type Sustained Pressure Intensity/Depth Moderate Comments w/LTR L to R 4 Body Location L ilacus Mobilization Type Sustained Pressure Joint Mobilizations 3 Joint innominate Direction caudal FM Neuro Re-Education Treatment Movement Re-Education Movement Re-education Activities PNF ant elevation at pelvis w/ flex pattern of LE & ant dep & ant elevation of scapula for irradiation; Chop pattern in supine for irradation to LLE core engagment PT-OP-R Modalities Start: 05/01/18 09:12 Freq: Status: Active Protocol: Document 06/12/18 11:48 [facility] (Rec: 06/12/18 11:58 [facility] [id number]) Hot Pack/Cold Pack Treatment Hot Pack Location LS Patient Position Hooklying Treatment Duration (minutes) 15 PT-OP-T Assessment and Plan Start: 05/01/18 09:12 Freq: Status: Active Protocol: Document 06/12/18 11:48 [facility] (Rec: 06/12/18 11:56 [facility] [id number]) Physical Therapy Assessment Goals Four Impairment MMT Skilled Nursing Goal (LTG) 5/5 to allow pt to participate in all of her normal activities LTG Duration 07/01/18 Three Impairment posture Short Term Goal (STG) Pt will present with good posture without cueing STG Duration 05/31/18 Two Impairment pain Short Term Goal (STG) at worst 3/5 STG Duration 05/31/18 Skilled Nursing Goal (LTG) at worst 1/5 LTG Duration 07/01/18 One Impairment JANIS Skilled Nursing Goal (LTG) 0 to show ability to do functional tasks LTG Duration by 07/01/18 Assessment Summary Assessment Pt had improved core facilitation w/LLE flex pattern after manual therapy with visceral mobs making most change in facilitation. Physical Therapy Plan Frequency and Duration Frequency of Treatment 2x/Week Duration of Treatment 2 months Plan of Care Start Date 05/01/18 Plan of Care End Date 07/01/18 Next Visit Focus/Plan Next Note Type Treatment Note Next Visit Plan Cont to advance core facilitation & activation w/ PNF patterns
--- NOTE | 2018-06-24 11:22 | PT.OTN ---
Current Diagnoses Low back pain (06/24/18) Physical Therapy Treatment Note PT-OP-A Visit Information Start: 05/01/18 09:12 Freq: Status: Active Protocol: Document 06/24/18 10:36 [facility] (Rec: 06/24/18 11:22 [facility] [id number]) Out-Patient Physical Therapy Visit Information Visit Information Visit Type Progress Note Visit Start Time 10:30 Visit Stop Time 11:30 Total Visit Minutes 60 Visit Number 7 PT-OP-B Current Condition Start: 05/01/18 09:12 Freq: Status: Active Protocol: Document 05/01/18 09:45 [facility] (Rec: 05/01/18 17:37 [facility] [id number]) Current Condition History of Current Condition History of Current Condition Pt reports last summer she was doing yard work all summer and in August, she woke up one morning and her back had gone out She could not stand up and has tried to be active and stretch to help with pain. Reports sharp pains are less but does not have her normal mobility and still gets caught hunched over sometimes and has to roll up the wall to get upright. She had a dexascan, which the MD told her showed no stenosis and her back looks great & bone density is good. Pt walks 2 miles 3 days a week along the [employer] [place]. Treatment Goals Patient/Caregiver Goals Make sure to not lose her mobility, be able to play with her 4 & 8 year old grandkids, stairs without pain, vacuum and dig in garden without pain . PT-OP-C Subjective Start: 05/01/18 09:12 Freq: Status: Active Protocol: Document 06/24/18 10:36 [facility] (Rec: 06/24/18 11:22 [facility] [id number]) Patient Questionnaires Oswestry Low Back Index Oswestry Score 5/50 Oswestry Impairment 1 to 19% Impaired (Score 1-19) PT-OP-J Posture/Palpation/Skin Start: 05/01/18 09:12 Freq: Status: Active Protocol: Document 05/01/18 09:45 [facility] (Rec: 05/01/18 10:40 [facility] [id number]) Posture Evaluation Meenakshi Postural Classification System Meenakshi Postural Classifications Anterior/Posterior Vertebral Compression Test 1 Elbow Flexion Test 5 Lumbar Protective Mechanism Left AP 1 Lumbar Protective Mechanism Right AP 3 Lumbar Protective Mechanism Left PA 1 Lumbar Protective Mechanism Right PA 1 Palpation Assessment Location One Palpation Location Lumbar Palpation Findings Soft Tissue Tightness Tenderness Palpation Details QL, ES, glutes B PT-OP-K Range of Motion Start: 05/01/18 09:12 Freq: Status: Active Protocol: Document 05/01/18 09:45 [facility] (Rec: 05/01/18 10:40 [facility] [id number]) Lumbar Spine Range of Motion Lumbar Spine Active Degrees Flexion 43 Extension 20 Lateral Flexion Left 30 Lateral Flexion Right 25 Comments tight L with B lat flex PT-OP-L Special Tests Start: 05/01/18 09:12 Freq: Status: Active Protocol: Document 05/01/18 09:45 [facility] (Rec: 05/01/18 10:40 [facility] [id number]) Special Tests Lumbar Spine Special Tests Slump Test Results neg Straight Leg Raise Test Results neg B Comments NEG EXT SIT PT-OP-M Strength Start: 05/01/18 09:12 Freq: Status: Active Protocol: Document 06/24/18 10:36 [facility] (Rec: 06/24/18 11:22 [facility] [id number]) Hip Strength Hip Manual Muscle Testing Right Flexion (L2) 5 Normal Extension (S1) 4 Good Abduction 5 Normal External Rotation 4 Good Internal Rotation 5 Normal Left Flexion (L2) 5 Normal Extension (S1) 4 Good Abduction 4+ Good+ External Rotation 4 Good Internal Rotation 5 Normal Comments WNL knee & ankle B PT-OP-Q Treatments Start: 05/01/18 09:12 Freq: Status: Active Protocol: Document 06/24/18 10:36 [facility] (Rec: 06/24/18 11:22 [facility] [id number]) Therapeutic Exercises Supine Exercises 6 Supine Exercise Name Lizandro test stretch 5 Supine Exercise Name scissor 4 Supine Exercise Name bridge with march Reps/Minutes 10 3 Supine Exercise Name iso single leg hip flex Sidelying Exercises 2 Sidelying Exercise Name clamshell Resistance L1 Reps/Minutes 10 Manual Therapy Treatment Soft Tissue Mobilization 4 Body Location L ilacus Mobilization Type Sustained Pressure 2 Body Location LS fascae Mobilization Type Myofascial Release Comments FM Joint Mobilizations 1 Joint hip Direction inf glide FM; on axis ER PT-OP-R Modalities Start: 05/01/18 09:12 Freq: Status: Active Protocol: Document 06/24/18 10:36 [facility] (Rec: 06/24/18 11:22 [facility] [id number]) Hot Pack/Cold Pack Treatment Hot Pack Location LS Patient Position Hooklying Treatment Duration (minutes) 15 PT-OP-T Assessment and Plan Start: 05/01/18 09:12 Freq: Status: Active Protocol: Document 06/24/18 10:36 [facility] (Rec: 06/24/18 11:22 [facility] [id number]) Physical Therapy Assessment Goals Four Impairment MMT Mcfp Goal (LTG) 5/5 to allow pt to participate in all of her normal activities LTG Duration -improving Three Impairment posture Short Term Goal (STG) Pt will present with good posture without cueing STG Duration achieved Two Impairment pain Short Term Goal (STG) at worst 3/10 STG Duration 07/25/18-improving (4/10 Clinic Administrator Goal (LTG) at worst 1/10 LTG Duration One Impairment JANIS Mcfp Goal (LTG) 0 to show ability to do functional tasks LTG Duration Assessment Summary Assessment Pt able to do scissors today without pain and was able to facilitate better with hip flexor isometric. Physical Therapy Plan Frequency and Duration Frequency of Treatment 2x/Week Duration of Treatment 2 months Plan of Care Start Date 06/24/18 Plan of Care End Date 08/24/18 Next Visit Focus/Plan Next Note Type Treatment Note Next Visit Plan Cont to advance core facilitation & activation w/ PNF patterns
--- NOTE | 2018-06-24 11:23 | PT.OPPOC ---
Current Diagnoses Low back pain (06/24/18) Provider Visit Care Team Role Provider Type Nory Holman MD Attending Provider Physician Primary Care Provider Specialty: Family Practice Address: [address] [place] [address], [id number] Email: [email or web address] Plan Of Care PT-OP-T Assessment and Plan Start: 05/01/18 09:12 Freq: Status: Active Protocol: Document 06/24/18 10:36 [facility] (Rec: 06/24/18 11:22 [facility] [id number]) Physical Therapy Assessment Goals Four Impairment MMT After School Teacher Goal (LTG) 5/5 to allow pt to participate in all of her normal activities LTG Duration -improving Three Impairment posture Short Term Goal (STG) Pt will present with good posture without cueing STG Duration achieved Two Impairment pain Short Term Goal (STG) at worst 3/10 STG Duration 07/25/18-improving (4/10 [facility] Goal (LTG) at worst 1/10 LTG Duration One Impairment JANIS After School Teacher Goal (LTG) 0 to show ability to do functional tasks LTG Duration Assessment Summary Assessment Pt able to do scissors today without pain and was able to facilitate better with hip flexor isometric. Physical Therapy Plan Frequency and Duration Frequency of Treatment 2x/Week Duration of Treatment 2 months Plan of Care Start Date 06/24/18 Plan of Care End Date 08/24/18 Next Visit Focus/Plan Next Note Type Treatment Note Next Visit Plan Cont to advance core facilitation & activation w/ PNF patterns Plan of Care Dates Plan of Care Start Date 06/24/18 Plan of Care End Date 08/24/18 Please Sign and Return: I have reviewed this Plan of Care and certify that the skilled therapy services above are required to meet the patient?s needs. Physician Signature Date Printed Name and Credentials Clinical Instructor Signature Printed Name and Credentials
--- NOTE | 2018-06-26 12:09 | PT.OTN ---
Current Diagnoses Low back pain (06/26/18) Physical Therapy Treatment Note PT-OP-A Visit Information Start: 05/01/18 09:12 Freq: Status: Active Protocol: Document 06/26/18 10:30 [facility] (Rec: 06/26/18 12:09 [facility] [id number]) Out-Patient Physical Therapy Visit Information Visit Information Visit Type Treatment Note Visit Start Time 10:30 Visit Stop Time 11:30 Total Visit Minutes 60 Visit Number 8 PT-OP-B Current Condition Start: 05/01/18 09:12 Freq: Status: Active Protocol: Document 05/01/18 09:45 [facility] (Rec: 05/01/18 17:37 [facility] [id number]) Current Condition History of Current Condition History of Current Condition Pt reports last summer she was doing yard work all summer and in August, she woke up one morning and her back had gone out She could not stand up and has tried to be active and stretch to help with pain. Reports sharp pains are less but does not have her normal mobility and still gets caught hunched over sometimes and has to roll up the wall to get upright. She had a dexascan, which the MD told her showed no stenosis and her back looks great & bone density is good. Pt walks 2 miles 3 days a week along the [employer] [place]. Treatment Goals Patient/Caregiver Goals Make sure to not lose her mobility, be able to play with her 4 & 8 year old grandkids, stairs without pain, vacuum and dig in garden without pain . PT-OP-C Subjective Start: 05/01/18 09:12 Freq: Status: Active Protocol: Document 06/26/18 10:30 [facility] (Rec: 06/26/18 12:09 [facility] [id number]) OP-PT Subjective Patient Comments Patient Comments Reports tried some exercises PT-OP-J Posture/Palpation/Skin Start: 05/01/18 09:12 Freq: Status: Active Protocol: Document 05/01/18 09:45 [facility] (Rec: 05/01/18 10:40 [facility] [id number]) Posture Evaluation Meenakshi Postural Classification System Meenakshi Postural Classifications Anterior/Posterior Vertebral Compression Test 1 Elbow Flexion Test 5 Lumbar Protective Mechanism Left AP 1 Lumbar Protective Mechanism Right AP 3 Lumbar Protective Mechanism Left PA 1 Lumbar Protective Mechanism Right PA 1 Palpation Assessment Location One Palpation Location Lumbar Palpation Findings Soft Tissue Tightness Tenderness Palpation Details QL, ES, glutes B PT-OP-K Range of Motion Start: 05/01/18 09:12 Freq: Status: Active Protocol: Document 05/01/18 09:45 [facility] (Rec: 05/01/18 10:40 [facility] [id number]) Lumbar Spine Range of Motion Lumbar Spine Active Degrees Flexion 43 Extension 20 Lateral Flexion Left 30 Lateral Flexion Right 25 Comments tight L with B lat flex PT-OP-L Special Tests Start: 05/01/18 09:12 Freq: Status: Active Protocol: Document 05/01/18 09:45 [facility] (Rec: 05/01/18 10:40 [facility] [id number]) Special Tests Lumbar Spine Special Tests Slump Test Results neg Straight Leg Raise Test Results neg B Comments NEG EXT SIT PT-OP-M Strength Start: 05/01/18 09:12 Freq: Status: Active Protocol: Document 06/24/18 10:36 [facility] (Rec: 06/24/18 11:22 [facility] [id number]) Hip Strength Hip Manual Muscle Testing Right Flexion (L2) 5 Normal Extension (S1) 4 Good Abduction 5 Normal External Rotation 4 Good Internal Rotation 5 Normal Left Flexion (L2) 5 Normal Extension (S1) 4 Good Abduction 4+ Good+ External Rotation 4 Good Internal Rotation 5 Normal Comments WNL knee & ankle B PT-OP-Q Treatments Start: 05/01/18 09:12 Freq: Status: Active Protocol: Document 06/26/18 10:30 [facility] (Rec: 06/26/18 12:09 [facility] [id number]) Therapeutic Exercises Supine Exercises 6 Supine Exercise Name Lizandro test stretch 5 Supine Exercise Name scissor Reps/Minutes 15 4 Supine Exercise Name bridge with march Reps/Minutes 10 3 Supine Exercise Name abdominal series flex Sidelying Exercises 2 Sidelying Exercise Name clamshell Reps/Minutes 15 1 Sidelying Exercise Name abd Side bilateral Reps/Minutes 15 Other Exercises 1 Other Exercise Name quad hip ext Side bilateral Reps/Minutes 10 Manual Therapy Treatment Joint Mobilizations 3 Joint innominate Direction caudal FM L 2 Joint sacrum Direction caudal & L UPA FM Body Position Prone 1 Joint hip Direction on axis IR L PT-OP-R Modalities Start: 05/01/18 09:12 Freq: Status: Active Protocol: Document 06/26/18 10:30 [facility] (Rec: 06/26/18 12:09 [facility] [id number]) Hot Pack/Cold Pack Treatment Hot Pack Location LS Patient Position Hooklying Treatment Duration (minutes) 15 PT-OP-T Assessment and Plan Start: 05/01/18 09:12 Freq: Status: Active Protocol: Document 06/26/18 10:30 [facility] (Rec: 06/26/18 12:09 [facility] [id number]) Physical Therapy Assessment Goals Four Impairment MMT Steel Erector Apprentice Goal (LTG) 5/5 to allow pt to participate in all of her normal activities LTG Duration -improving Two Impairment pain Short Term Goal (STG) at worst 3/10 STG Duration 07/25/18-improving (4/10 Steel Erector Apprentice Goal (LTG) at worst 1/10 LTG Duration One Impairment JANIS Steel Erector Apprentice Goal (LTG) 0 to show ability to do functional tasks LTG Duration Assessment Summary Assessment Pt is progressing with core stability and still require cueing for exercises. No back pain. Physical Therapy Plan Frequency and Duration Frequency of Treatment 2x/Week Duration of Treatment 2 months Plan of Care Start Date 06/24/18 Plan of Care End Date 08/24/18 Next Visit Focus/Plan Next Note Type Treatment Note Next Visit Plan Cont to advance core facilitation & activation w/ PNF patterns
--- NOTE | 2018-07-01 11:17 | PT.OTN ---
Current Diagnoses Low back pain (07/01/18) Physical Therapy Treatment Note PT-OP-A Visit Information Start: 05/01/18 09:12 Freq: Status: Active Protocol: Document 07/01/18 10:31 [facility] (Rec: 07/01/18 11:17 [facility] [id number]) Out-Patient Physical Therapy Visit Information Visit Information Visit Type Treatment Note Visit Note 9 total visits Visit Start Time 10:30 Visit Stop Time 11:30 Total Visit Minutes 60 Visit Number 08/04 PT-OP-B Current Condition Start: 05/01/18 09:12 Freq: Status: Active Protocol: Document 05/01/18 09:45 [facility] (Rec: 05/01/18 17:37 [facility] [id number]) Current Condition History of Current Condition History of Current Condition Pt reports last summer she was doing yard work all summer and in August, she woke up one morning and her back had gone out She could not stand up and has tried to be active and stretch to help with pain. Reports sharp pains are less but does not have her normal mobility and still gets caught hunched over sometimes and has to roll up the wall to get upright. She had a dexascan, which the MD told her showed no stenosis and her back looks great & bone density is good. Pt walks 2 miles 3 days a week along the [employer] [place]. Treatment Goals Patient/Caregiver Goals Make sure to not lose her mobility, be able to play with her 4 & 8 year old grandkids, stairs without pain, vacuum and dig in garden without pain . PT-OP-C Subjective Start: 05/01/18 09:12 Freq: Status: Active Protocol: Document 07/01/18 10:31 [facility] (Rec: 07/01/18 11:17 [facility] [id number]) OP-PT Subjective Patient Comments Patient Comments Worked in garden until she couldn't stand and now is sore . PT-OP-J Posture/Palpation/Skin Start: 05/01/18 09:12 Freq: Status: Active Protocol: Document 05/01/18 09:45 [facility] (Rec: 05/01/18 10:40 [facility] [id number]) Posture Evaluation Meenakshi Postural Classification System Meenakshi Postural Classifications Anterior/Posterior Vertebral Compression Test 1 Elbow Flexion Test 5 Lumbar Protective Mechanism Left AP 1 Lumbar Protective Mechanism Right AP 3 Lumbar Protective Mechanism Left PA 1 Lumbar Protective Mechanism Right PA 1 Palpation Assessment Location One Palpation Location Lumbar Palpation Findings Soft Tissue Tightness Tenderness Palpation Details QL, ES, glutes B PT-OP-K Range of Motion Start: 05/01/18 09:12 Freq: Status: Active Protocol: Document 05/01/18 09:45 [facility] (Rec: 05/01/18 10:40 [facility] [id number]) Lumbar Spine Range of Motion Lumbar Spine Active Degrees Flexion 43 Extension 20 Lateral Flexion Left 30 Lateral Flexion Right 25 Comments tight L with B lat flex PT-OP-L Special Tests Start: 05/01/18 09:12 Freq: Status: Active Protocol: Document 05/01/18 09:45 [facility] (Rec: 05/01/18 10:40 [facility] [id number]) Special Tests Lumbar Spine Special Tests Slump Test Results neg Straight Leg Raise Test Results neg B Comments NEG EXT SIT PT-OP-M Strength Start: 05/01/18 09:12 Freq: Status: Active Protocol: Document 06/24/18 10:36 [facility] (Rec: 06/24/18 11:22 [facility] [id number]) Hip Strength Hip Manual Muscle Testing Right Flexion (L2) 5 Normal Extension (S1) 4 Good Abduction 5 Normal External Rotation 4 Good Internal Rotation 5 Normal Left Flexion (L2) 5 Normal Extension (S1) 4 Good Abduction 4+ Good+ External Rotation 4 Good Internal Rotation 5 Normal Comments WNL knee & ankle B PT-OP-Q Treatments Start: 05/01/18 09:12 Freq: Status: Active Protocol: Document 07/01/18 10:31 [facility] (Rec: 07/01/18 11:17 [facility] [id number]) Therapeutic Exercises Supine Exercises 5 Supine Exercise Name scissor Reps/Minutes 15 4 Supine Exercise Name bridge with march Reps/Minutes 10 Therapeutic Activity Therapeutic Activity 4 Name Lifting mechanics Comments for lifting in garden & house 3 Name household activities Comments edu for vacuum, dishes, sweeping etc mechanics Manual Therapy Treatment Soft Tissue Mobilization 4 Body Location L ilacus Mobilization Type Sustained Pressure 3 Body Location ES B Mobilization Type Rolling Joint Mobilizations 2 Joint sacrum Direction caudal & L UPA FM Body Position Prone 1 Joint hip Direction on axis IR L PT-OP-R Modalities Start: 05/01/18 09:12 Freq: Status: Active Protocol: Document 07/01/18 10:31 [facility] (Rec: 07/01/18 11:17 [facility] [id number]) Hot Pack/Cold Pack Treatment Hot Pack Location LS Patient Position Hooklying Treatment Duration (minutes) 15 PT-OP-T Assessment and Plan Start: 05/01/18 09:12 Freq: Status: Active Protocol: Document 07/01/18 10:31 [facility] (Rec: 07/01/18 11:17 [facility] [id number]) Physical Therapy Assessment Goals Four Impairment MMT Assisted Goal (LTG) 5/5 to allow pt to participate in all of her normal activities LTG Duration -improving Two Impairment pain Short Term Goal (STG) at worst 3/10 STG Duration 07/25/18-improving (4/10 Outside Salesman Goal (LTG) at worst 1/10 LTG Duration One Impairment JANIS Assisted Goal (LTG) 0 to show ability to do functional tasks LTG Duration Assessment Summary Assessment Pt verbalizes understanding for body mechanics and importance. She did well with min cueing with the 2 exercises she had questions on . Physical Therapy Plan Frequency and Duration Frequency of Treatment 2x/Week Duration of Treatment 2 months Plan of Care Start Date 06/24/18 Plan of Care End Date 08/24/18 Next Visit Focus/Plan Next Note Type Treatment Note Next Visit Plan Cont to advance core facilitation & activation w/ PNF patterns
--- NOTE | 2018-07-03 14:56 | PT.OTN ---
Current Diagnoses Low back pain (07/03/18) Physical Therapy Treatment Note PT-OP-A Visit Information Start: 05/01/18 09:12 Freq: Status: Active Protocol: Document 07/03/18 14:48 [facility] (Rec: 07/03/18 14:56 [facility] [id number]) Out-Patient Physical Therapy Visit Information Visit Information Visit Type Treatment Note Visit Note 10 total Visit Start Time 10:30 Visit Stop Time 11:30 Total Visit Minutes 60 Visit Number 03/04 PT-OP-B Current Condition Start: 05/01/18 09:12 Freq: Status: Active Protocol: Document 05/01/18 09:45 [facility] (Rec: 05/01/18 17:37 [facility] [id number]) Current Condition History of Current Condition History of Current Condition Pt reports last summer she was doing yard work all summer and in August, she woke up one morning and her back had gone out She could not stand up and has tried to be active and stretch to help with pain. Reports sharp pains are less but does not have her normal mobility and still gets caught hunched over sometimes and has to roll up the wall to get upright. She had a dexascan, which the MD told her showed no stenosis and her back looks great & bone density is good. Pt walks 2 miles 3 days a week along the [employer] [place]. Treatment Goals Patient/Caregiver Goals Make sure to not lose her mobility, be able to play with her 4 & 8 year old grandkids, stairs without pain, vacuum and dig in garden without pain . PT-OP-C Subjective Start: 05/01/18 09:12 Freq: Status: Active Protocol: Document 07/03/18 14:48 [facility] (Rec: 07/03/18 14:56 [facility] [id number]) OP-PT Subjective Patient Comments Patient Comments Pt reports she still has soreness in her LB PT-OP-J Posture/Palpation/Skin Start: 05/01/18 09:12 Freq: Status: Active Protocol: Document 05/01/18 09:45 [facility] (Rec: 05/01/18 10:40 [facility] [id number]) Posture Evaluation Meenakshi Postural Classification System Meenakshi Postural Classifications Anterior/Posterior Vertebral Compression Test 1 Elbow Flexion Test 5 Lumbar Protective Mechanism Left AP 1 Lumbar Protective Mechanism Right AP 3 Lumbar Protective Mechanism Left PA 1 Lumbar Protective Mechanism Right PA 1 Palpation Assessment Location One Palpation Location Lumbar Palpation Findings Soft Tissue Tightness Tenderness Palpation Details QL, ES, glutes B PT-OP-K Range of Motion Start: 05/01/18 09:12 Freq: Status: Active Protocol: Document 05/01/18 09:45 [facility] (Rec: 05/01/18 10:40 [facility] [id number]) Lumbar Spine Range of Motion Lumbar Spine Active Degrees Flexion 43 Extension 20 Lateral Flexion Left 30 Lateral Flexion Right 25 Comments tight L with B lat flex PT-OP-L Special Tests Start: 05/01/18 09:12 Freq: Status: Active Protocol: Document 05/01/18 09:45 [facility] (Rec: 05/01/18 10:40 [facility] [id number]) Special Tests Lumbar Spine Special Tests Slump Test Results neg Straight Leg Raise Test Results neg B Comments NEG EXT SIT PT-OP-M Strength Start: 05/01/18 09:12 Freq: Status: Active Protocol: Document 06/24/18 10:36 [facility] (Rec: 06/24/18 11:22 [facility] [id number]) Hip Strength Hip Manual Muscle Testing Right Flexion (L2) 5 Normal Extension (S1) 4 Good Abduction 5 Normal External Rotation 4 Good Internal Rotation 5 Normal Left Flexion (L2) 5 Normal Extension (S1) 4 Good Abduction 4+ Good+ External Rotation 4 Good Internal Rotation 5 Normal Comments WNL knee & ankle B PT-OP-Q Treatments Start: 05/01/18 09:12 Freq: Status: Active Protocol: Document 07/03/18 14:48 [facility] (Rec: 07/03/18 14:56 [facility] [id number]) Therapeutic Exercises Sidelying Exercises 3 Sidelying Exercise Name SLS w/alt knee drive Comments for L post depression Therapeutic Activity Therapeutic Activity 2 Name standing postural position Gait Training Gait Activity 2 Description at wall Comments R knee drive for L post depression 1 Description in mirror w/cueing Comments focus on pelvic position & push off through hip ext Manual Therapy Treatment Soft Tissue Mobilization 2 Body Location LS fascae Mobilization Type Myofascial Release Comments FM w/ant elevation & post depression 1 Body Location QL Mobilization Type Rolling Manual Techniques 1 Type PNF post depression sustained hold Comments sustained holds & COI PT-OP-R Modalities Start: 05/01/18 09:12 Freq: Status: Active Protocol: Document 07/03/18 14:48 [facility] (Rec: 07/03/18 14:56 [facility] [id number]) Hot Pack/Cold Pack Treatment Hot Pack Location LS Patient Position Hooklying Treatment Duration (minutes) 15 PT-OP-T Assessment and Plan Start: 05/01/18 09:12 Freq: Status: Active Protocol: Document 07/03/18 14:48 [facility] (Rec: 07/03/18 14:56 [facility] [id number]) Physical Therapy Assessment Goals Four Impairment MMT Manager [place] Goal (LTG) 5/5 to allow pt to participate in all of her normal activities LTG Duration -improving Two Impairment pain Short Term Goal (STG) at worst 3/10 STG Duration 07/25/18-improving (4/10 Manager [place] Goal (LTG) at worst 12/04 LTG Duration One Impairment JANIS Manager [employer] Goal (LTG) 0 to show ability to do functional tasks LTG Duration Assessment Summary Assessment Pt had improved range into post depression after soft tissue release and improved ability to do SLS w/alt knee drive on LLE after PNF performed. Physical Therapy Plan Frequency and Duration Frequency of Treatment 2x/Week Duration of Treatment 2 months Plan of Care Start Date 06/24/18 Plan of Care End Date 08/24/18 Next Visit Focus/Plan Next Note Type Treatment Note Next Visit Plan Cont to advance core facilitation & activation w/ PNF patterns; try resisted january
--- NOTE | 2018-07-08 11:18 | PT.OTN ---
Current Diagnoses Low back pain (07/08/18) Physical Therapy Treatment Note PT-OP-A Visit Information Start: 05/01/18 09:12 Freq: Status: Active Protocol: Document 07/08/18 10:29 [facility] (Rec: 07/08/18 11:17 [facility] [id number]) Out-Patient Physical Therapy Visit Information Visit Information Visit Type Treatment Note Visit Note 11 total Visit Start Time 10:30 Visit Stop Time 11:30 Total Visit Minutes 60 Visit Number 04/03 PT-OP-B Current Condition Start: 05/01/18 09:12 Freq: Status: Active Protocol: Document 05/01/18 09:45 [facility] (Rec: 05/01/18 17:37 [facility] [id number]) Current Condition History of Current Condition History of Current Condition Pt reports last summer she was doing yard work all summer and in August, she woke up one morning and her back had gone out She could not stand up and has tried to be active and stretch to help with pain. Reports sharp pains are less but does not have her normal mobility and still gets caught hunched over sometimes and has to roll up the wall to get upright. She had a dexascan, which the MD told her showed no stenosis and her back looks great & bone density is good. Pt walks 2 miles 3 days a week along the [employer] [place]. Treatment Goals Patient/Caregiver Goals Make sure to not lose her mobility, be able to play with her 4 & 8 year old grandkids, stairs without pain, vacuum and dig in garden without pain . PT-OP-C Subjective Start: 05/01/18 09:12 Freq: Status: Active Protocol: Document 07/08/18 10:29 [facility] (Rec: 07/08/18 11:17 [facility] [id number]) OP-PT Subjective Patient Comments Patient Comments Back is improving slowly. R hip in sore anteriorly. PT-OP-J Posture/Palpation/Skin Start: 05/01/18 09:12 Freq: Status: Active Protocol: Document 05/01/18 09:45 [facility] (Rec: 05/01/18 10:40 [facility] [id number]) Posture Evaluation Meenakshi Postural Classification System Meenakshi Postural Classifications Anterior/Posterior Vertebral Compression Test 1 Elbow Flexion Test 5 Lumbar Protective Mechanism Left AP 1 Lumbar Protective Mechanism Right AP 3 Lumbar Protective Mechanism Left PA 1 Lumbar Protective Mechanism Right PA 1 Palpation Assessment Location One Palpation Location Lumbar Palpation Findings Soft Tissue Tightness Tenderness Palpation Details QL, ES, glutes B PT-OP-K Range of Motion Start: 05/01/18 09:12 Freq: Status: Active Protocol: Document 05/01/18 09:45 [facility] (Rec: 05/01/18 10:40 [facility] [id number]) Lumbar Spine Range of Motion Lumbar Spine Active Degrees Flexion 43 Extension 20 Lateral Flexion Left 30 Lateral Flexion Right 25 Comments tight L with B lat flex PT-OP-L Special Tests Start: 05/01/18 09:12 Freq: Status: Active Protocol: Document 05/01/18 09:45 [facility] (Rec: 05/01/18 10:40 [facility] [id number]) Special Tests Lumbar Spine Special Tests Slump Test Results neg Straight Leg Raise Test Results neg B Comments NEG EXT SIT PT-OP-M Strength Start: 05/01/18 09:12 Freq: Status: Active Protocol: Document 06/24/18 10:36 [facility] (Rec: 06/24/18 11:22 [facility] [id number]) Hip Strength Hip Manual Muscle Testing Right Flexion (L2) 5 Normal Extension (S1) 4 Good Abduction 5 Normal External Rotation 4 Good Internal Rotation 5 Normal Left Flexion (L2) 5 Normal Extension (S1) 4 Good Abduction 4+ Good+ External Rotation 4 Good Internal Rotation 5 Normal Comments WNL knee & ankle B PT-OP-Q Treatments Start: 05/01/18 09:12 Freq: Status: Active Protocol: Document 07/08/18 10:29 [facility] (Rec: 07/08/18 11:17 [facility] [id number]) Gym Equipment Sport Cord 1 Exercise Details fwd walk w/alt knee drive Cord/Resistance red Reps/Duration 8 each Therapeutic Exercises Standing Exercises 2 Standing Exercise Name Alt knee drive single leg 1 Standing Exercise Name wall press for gait Manual Therapy Treatment Soft Tissue Mobilization 4 Body Location L ilacus Mobilization Type Sustained Pressure Joint Mobilizations 2 Joint sacrum Direction caudal & L UPA FM Body Position Prone 1 Joint hip Direction on axis IR & ER L Comments neuro re edu for prolonged holds & COI PT-OP-R Modalities Start: 05/01/18 09:12 Freq: Status: Active Protocol: Document 07/08/18 10:29 [facility] (Rec: 07/08/18 11:17 [facility] [id number]) Hot Pack/Cold Pack Treatment Hot Pack Location LS Patient Position Hooklying Treatment Duration (minutes) 15 PT-OP-T Assessment and Plan Start: 05/01/18 09:12 Freq: Status: Active Protocol: Document 07/08/18 10:29 [facility] (Rec: 07/08/18 11:17 [facility] [id number]) Physical Therapy Assessment Goals Four Impairment MMT Senior Care Goal (LTG) 5/5 to allow pt to participate in all of her normal activities LTG Duration -improving Two Impairment pain Short Term Goal (STG) at worst 3/10 STG Duration 07/25/18-improving (4/10 Senior Care Goal (LTG) at worst 12/04 LTG Duration One Impairment JANIS Title Insurance Sales Representative Goal (LTG) 0 to show ability to do functional tasks LTG Duration Assessment Summary Assessment Pt is impove with ability to do gait with cognitive changes , but still has ER of pelvis with push off Physical Therapy Plan Frequency and Duration Frequency of Treatment 2x/Week Duration of Treatment 2 months Plan of Care Start Date 06/24/18 Plan of Care End Date 08/24/18 Next Visit Focus/Plan Next Note Type Treatment Note Next Visit Plan Work on resisted step up with january
--- NOTE | 2018-07-10 11:22 | PT.OTN ---
Current Diagnoses Low back pain (07/10/18) Physical Therapy Treatment Note PT-OP-A Visit Information Start: 05/01/18 09:12 Freq: Status: Active Protocol: Document 07/10/18 10:30 [facility] (Rec: 07/10/18 11:22 [facility] [id number]) Out-Patient Physical Therapy Visit Information Visit Information Visit Type Treatment Note Visit Note 12 total Visit Start Time 10:30 Visit Stop Time 11:30 Total Visit Minutes 60 Visit Number 05/04 PT-OP-B Current Condition Start: 05/01/18 09:12 Freq: Status: Active Protocol: Document 05/01/18 09:45 [facility] (Rec: 05/01/18 17:37 [facility] [id number]) Current Condition History of Current Condition History of Current Condition Pt reports last summer she was doing yard work all summer and in August, she woke up one morning and her back had gone out She could not stand up and has tried to be active and stretch to help with pain. Reports sharp pains are less but does not have her normal mobility and still gets caught hunched over sometimes and has to roll up the wall to get upright. She had a dexascan, which the MD told her showed no stenosis and her back looks great & bone density is good. Pt walks 2 miles 3 days a week along the [email or web address] [place]. Treatment Goals Patient/Caregiver Goals Make sure to not lose her mobility, be able to play with her 4 & 8 year old grandkids, stairs without pain, vacuum and dig in garden without pain . PT-OP-C Subjective Start: 05/01/18 09:12 Freq: Status: Active Protocol: Document 07/10/18 10:30 [facility] (Rec: 07/10/18 11:22 [facility] [id number]) OP-PT Subjective Patient Comments Patient Comments Feels like back has been achy but no sharp pains. Pt reports the L ant hip has been a lot less since last session. PT-OP-J Posture/Palpation/Skin Start: 05/01/18 09:12 Freq: Status: Active Protocol: Document 05/01/18 09:45 [facility] (Rec: 05/01/18 10:40 [facility] [id number]) Posture Evaluation Meenakshi Postural Classification System Meenakshi Postural Classifications Anterior/Posterior Vertebral Compression Test 1 Elbow Flexion Test 5 Lumbar Protective Mechanism Left AP 1 Lumbar Protective Mechanism Right AP 3 Lumbar Protective Mechanism Left PA 1 Lumbar Protective Mechanism Right PA 1 Palpation Assessment Location One Palpation Location Lumbar Palpation Findings Soft Tissue Tightness Tenderness Palpation Details QL, ES, glutes B PT-OP-K Range of Motion Start: 05/01/18 09:12 Freq: Status: Active Protocol: Document 05/01/18 09:45 [facility] (Rec: 05/01/18 10:40 [facility] [id number]) Lumbar Spine Range of Motion Lumbar Spine Active Degrees Flexion 43 Extension 20 Lateral Flexion Left 30 Lateral Flexion Right 25 Comments tight L with B lat flex PT-OP-L Special Tests Start: 05/01/18 09:12 Freq: Status: Active Protocol: Document 05/01/18 09:45 [facility] (Rec: 05/01/18 10:40 [facility] [id number]) Special Tests Lumbar Spine Special Tests Slump Test Results neg Straight Leg Raise Test Results neg B Comments NEG EXT SIT PT-OP-M Strength Start: 05/01/18 09:12 Freq: Status: Active Protocol: Document 06/24/18 10:36 [facility] (Rec: 06/24/18 11:22 [facility] [id number]) Hip Strength Hip Manual Muscle Testing Right Flexion (L2) 5 Normal Extension (S1) 4 Good Abduction 5 Normal External Rotation 4 Good Internal Rotation 5 Normal Left Flexion (L2) 5 Normal Extension (S1) 4 Good Abduction 4+ Good+ External Rotation 4 Good Internal Rotation 5 Normal Comments WNL knee & ankle B PT-OP-Q Treatments Start: 05/01/18 09:12 Freq: Status: Active Protocol: Document 07/10/18 10:30 [facility] (Rec: 07/10/18 11:22 [facility] [id number]) Gym Equipment Sport Cord 1 Exercise Details fwd walk w/alt knee drive Cord/Resistance red Reps/Duration 10 each B Comments onto 6 in step Manual Therapy Treatment Soft Tissue Mobilization 5 Body Location visceral mobs R to l Mobilization Type Sustained Pressure Comments W/LTR 4 Body Location L ilacus Mobilization Type Sustained Pressure Joint Mobilizations 3 Joint innominate Direction caudal FM L 2 Joint sacrum Direction caudal & L UPA FM Body Position Prone 1 Joint hip Direction on axis IR & ER L Comments neuro re edu for prolonged holds & COI PT-OP-R Modalities Start: 05/01/18 09:12 Freq: Status: Active Protocol: Document 07/10/18 10:30 [facility] (Rec: 07/10/18 11:22 [facility] [id number]) Hot Pack/Cold Pack Treatment Hot Pack Location LS Patient Position Hooklying Treatment Duration (minutes) 15 PT-OP-T Assessment and Plan Start: 05/01/18 09:12 Freq: Status: Active Protocol: Document 07/10/18 10:30 [facility] (Rec: 07/10/18 11:22 [facility] [id number]) Physical Therapy Assessment Goals Four Impairment MMT [facility] Goal (LTG) 5/5 to allow pt to participate in all of her normal activities LTG Duration -improving Two Impairment pain Short Term Goal (STG) at worst 3/10 STG Duration 07/25/18-improving (4/10 Housekeeping Coordinator Goal (LTG) at worst 1/10 LTG Duration One Impairment JANIS [facility] Goal (LTG) 0 to show ability to do functional tasks LTG Duration Assessment Summary Assessment Pt is improving with her overall balance and core stability. Physical Therapy Plan Frequency and Duration Frequency of Treatment 2x/Week Duration of Treatment 2 months Plan of Care Start Date 06/24/18 Plan of Care End Date 08/24/18 Next Visit Focus/Plan Next Note Type Treatment Note Next Visit Plan side step up with january
--- NOTE | 2018-07-15 16:41 | PT.OTN ---
Current Diagnoses Low back pain (07/15/18) Physical Therapy Treatment Note PT-OP-A Visit Information Start: 05/01/18 09:12 Freq: Status: Active Protocol: Document 07/15/18 10:14 [facility] (Rec: 07/15/18 16:41 [facility] [id number]) Out-Patient Physical Therapy Visit Information Visit Information Visit Type Treatment Note Visit Note 13 total Visit Start Time 10:30 Visit Stop Time 11:30 Total Visit Minutes 60 Visit Number 06/03 PT-OP-B Current Condition Start: 05/01/18 09:12 Freq: Status: Active Protocol: Document 05/01/18 09:45 [facility] (Rec: 05/01/18 17:37 [facility] [id number]) Current Condition History of Current Condition History of Current Condition Pt reports last summer she was doing yard work all summer and in August, she woke up one morning and her back had gone out She could not stand up and has tried to be active and stretch to help with pain. Reports sharp pains are less but does not have her normal mobility and still gets caught hunched over sometimes and has to roll up the wall to get upright. She had a dexascan, which the MD told her showed no stenosis and her back looks great & bone density is good. Pt walks 2 miles 3 days a week along the [employer] [place]. Treatment Goals Patient/Caregiver Goals Make sure to not lose her mobility, be able to play with her 4 & 8 year old grandkids, stairs without pain, vacuum and dig in garden without pain . PT-OP-C Subjective Start: 05/01/18 09:12 Freq: Status: Active Protocol: Document 07/15/18 10:14 [facility] (Rec: 07/15/18 16:41 [facility] [id number]) OP-PT Subjective Patient Comments Patient Comments Reports sometimes HS cramps when bridging PT-OP-J Posture/Palpation/Skin Start: 05/01/18 09:12 Freq: Status: Active Protocol: Document 05/01/18 09:45 [facility] (Rec: 05/01/18 10:40 [facility] [id number]) Posture Evaluation Meenakshi Postural Classification System Meenakshi Postural Classifications Anterior/Posterior Vertebral Compression Test 1 Elbow Flexion Test 5 Lumbar Protective Mechanism Left AP 1 Lumbar Protective Mechanism Right AP 3 Lumbar Protective Mechanism Left PA 1 Lumbar Protective Mechanism Right PA 1 Palpation Assessment Location One Palpation Location Lumbar Palpation Findings Soft Tissue Tightness Tenderness Palpation Details QL, ES, glutes B PT-OP-K Range of Motion Start: 05/01/18 09:12 Freq: Status: Active Protocol: Document 05/01/18 09:45 [facility] (Rec: 05/01/18 10:40 [facility] [id number]) Lumbar Spine Range of Motion Lumbar Spine Active Degrees Flexion 43 Extension 20 Lateral Flexion Left 30 Lateral Flexion Right 25 Comments tight L with B lat flex PT-OP-L Special Tests Start: 05/01/18 09:12 Freq: Status: Active Protocol: Document 05/01/18 09:45 [facility] (Rec: 05/01/18 10:40 [facility] [id number]) Special Tests Lumbar Spine Special Tests Slump Test Results neg Straight Leg Raise Test Results neg B Comments NEG EXT SIT PT-OP-M Strength Start: 05/01/18 09:12 Freq: Status: Active Protocol: Document 06/24/18 10:36 [facility] (Rec: 06/24/18 11:22 [facility] [id number]) Hip Strength Hip Manual Muscle Testing Right Flexion (L2) 5 Normal Extension (S1) 4 Good Abduction 5 Normal External Rotation 4 Good Internal Rotation 5 Normal Left Flexion (L2) 5 Normal Extension (S1) 4 Good Abduction 4+ Good+ External Rotation 4 Good Internal Rotation 5 Normal Comments WNL knee & ankle B PT-OP-Q Treatments Start: 05/01/18 09:12 Freq: Status: Active Protocol: Document 07/15/18 10:14 [facility] (Rec: 07/15/18 16:41 [facility] [id number]) Gym Equipment Sport Cord 1 Exercise Details fwd, back & side walk w/alt knee drive Cord/Resistance red Reps/Duration 10 each B Comments onto 6 in step Therapeutic Exercises Supine Exercises 6 Supine Exercise Name bridge with alt january Comments w/ compression for facilitation Manual Therapy Treatment Soft Tissue Mobilization 4 Body Location L ilacus Mobilization Type Sustained Pressure PT-OP-R Modalities Start: 05/01/18 09:12 Freq: Status: Active Protocol: Document 07/15/18 10:14 [facility] (Rec: 07/15/18 16:41 [facility] [id number]) Hot Pack/Cold Pack Treatment Hot Pack Location LS Patient Position Hooklying Treatment Duration (minutes) 15 PT-OP-T Assessment and Plan Start: 06/07/18 09:12 Freq: Status: Active Protocol: Document 07/15/18 10:14 [facility] (Rec: 07/15/18 16:41 [facility] [id number]) Physical Therapy Assessment Goals Four Impairment MMT Senior Living Goal (LTG) 5/5 to allow pt to participate in all of her normal activities LTG Duration -improving Two Impairment pain Short Term Goal (STG) at worst 3/10 STG Duration 07/25/18-improving (4/10 Senior Living Goal (LTG) at worst 1/ LTG Duration One Impairment JANIS Critical Care Specialist Goal (LTG) 0 to show ability to do functional tasks LTG Duration Assessment Summary Assessment Pt able to do bridge with march without pain after faciliation and cueing. Pt cont to have restriction in iliacus, but is demonstrating improvement Physical Therapy Plan Frequency and Duration Frequency of Treatment 2x/Week Duration of Treatment 2 months Plan of Care Start Date 06/24/18 Plan of Care End Date 08/24/18 Next Visit Focus/Plan Next Note Type Treatment Note Next Visit Plan Cont to progress core stability exercises in standing; side steps resisted; return to visceral mobs
--- NOTE | 2018-07-17 15:58 | PT.OTN ---
Current Diagnoses Low back pain (07/17/18) Physical Therapy Treatment Note PT-OP-A Visit Information Start: 05/01/18 09:12 Freq: Status: Active Protocol: Document 07/17/18 15:50 [facility] (Rec: 07/17/18 15:58 [facility] [id number]) Out-Patient Physical Therapy Visit Information Visit Information Visit Type Treatment Note Visit Note 14 total Visit Start Time 10:30 Visit Stop Time 11:30 Total Visit Minutes 60 Visit Number 07/04 PT-OP-B Current Condition Start: 05/01/18 09:12 Freq: Status: Active Protocol: Document 05/01/18 09:45 [facility] (Rec: 05/01/18 17:37 [facility] [id number]) Current Condition History of Current Condition History of Current Condition Pt reports last summer she was doing yard work all summer and in August, she woke up one morning and her back had gone out She could not stand up and has tried to be active and stretch to help with pain. Reports sharp pains are less but does not have her normal mobility and still gets caught hunched over sometimes and has to roll up the wall to get upright. She had a dexascan, which the MD told her showed no stenosis and her back looks great & bone density is good. Pt walks 2 miles 3 days a week along [place]. Treatment Goals Patient/Caregiver Goals Make sure to not lose her mobility, be able to play with her 4 & 8 year old grandkids, stairs without pain, vacuum and dig in garden without pain . PT-OP-C Subjective Start: 05/01/18 09:12 Freq: Status: Active Protocol: Document 07/17/18 15:50 [facility] (Rec: 07/17/18 15:58 [facility] [id number]) OP-PT Subjective Patient Comments Patient Comments Reports she has done well with the bridging PT-OP-J Posture/Palpation/Skin Start: 05/01/18 09:12 Freq: Status: Active Protocol: Document 05/01/18 09:45 [facility] (Rec: 05/01/18 10:40 [facility] [id number]) Posture Evaluation Meenakshi Postural Classification System Meenakshi Postural Classifications Anterior/Posterior Vertebral Compression Test 1 Elbow Flexion Test 5 Lumbar Protective Mechanism Left AP 1 Lumbar Protective Mechanism Right AP 3 Lumbar Protective Mechanism Left PA 1 Lumbar Protective Mechanism Right PA 1 Palpation Assessment Location One Palpation Location Lumbar Palpation Findings Soft Tissue Tightness Tenderness Palpation Details QL, ES, glutes B PT-OP-K Range of Motion Start: 05/01/18 09:12 Freq: Status: Active Protocol: Document 05/01/18 09:45 [facility] (Rec: 05/01/18 10:40 [facility] [id number]) Lumbar Spine Range of Motion Lumbar Spine Active Degrees Flexion 43 Extension 20 Lateral Flexion Left 30 Lateral Flexion Right 25 Comments tight L with B lat flex PT-OP-L Special Tests Start: 05/01/18 09:12 Freq: Status: Active Protocol: Document 05/01/18 09:45 [facility] (Rec: 05/01/18 10:40 [facility] [id number]) Special Tests Lumbar Spine Special Tests Slump Test Results neg Straight Leg Raise Test Results neg B Comments NEG EXT SIT PT-OP-M Strength Start: 05/01/18 09:12 Freq: Status: Active Protocol: Document 06/24/18 10:36 [facility] (Rec: 06/24/18 11:22 [facility] [id number]) Hip Strength Hip Manual Muscle Testing Right Flexion (L2) 5 Normal Extension (S1) 4 Good Abduction 5 Normal External Rotation 4 Good Internal Rotation 5 Normal Left Flexion (L2) 5 Normal Extension (S1) 4 Good Abduction 4+ Good+ External Rotation 4 Good Internal Rotation 5 Normal Comments WNL knee & ankle B PT-OP-Q Treatments Start: 05/01/18 09:12 Freq: Status: Active Protocol: Document 07/17/18 15:50 [facility] (Rec: 07/17/18 15:58 [facility] [id number]) Gym Equipment Sport Cord 1 Exercise Details fwd, back & side walk w/alt knee drive Cord/Resistance red Reps/Duration 10 each B Comments onto 6 in step Therapeutic Exercises Standing Exercises 4 Standing Exercise Name fwd/back walk Equipment Used red tband Reps/Minutes 25 ft 3 Standing Exercise Name side step Equipment Used red Reps/Minutes 25ft Manual Therapy Treatment Soft Tissue Mobilization 4 Body Location L ilacus Mobilization Type Sustained Pressure Joint Mobilizations 3 Joint innominate Direction L flex FM 1 Joint hip Direction inf & distraction Grade III PT-OP-R Modalities Start: 05/01/18 09:12 Freq: Status: Active Protocol: Document 07/17/18 15:50 [facility] (Rec: 07/17/18 15:58 [facility] [id number]) Hot Pack/Cold Pack Treatment Hot Pack Location LS Patient Position Hooklying Treatment Duration (minutes) 15 PT-OP-T Assessment and Plan Start: 05/01/18 09:12 Freq: Status: Active Protocol: Document 07/17/18 15:50 [facility] (Rec: 07/17/18 15:58 [facility] [id number]) Physical Therapy Assessment Goals Four Impairment MMT Senior Systems Programmer Goal (LTG) 5/5 to allow pt to participate in all of her normal activities LTG Duration -improving Two Impairment pain Short Term Goal (STG) at worst 3/10 STG Duration 07/25/18-improving (4/10 Senior Systems Programmer Goal (LTG) at worst / LTG Duration One Impairment JANIS Senior Systems Programmer Goal (LTG) 0 to show ability to do functional tasks LTG Duration Assessment Summary Assessment Pt improving with stability with resisted step up to january . She cont to have pain in ant L hip that improves with STM Physical Therapy Plan Frequency and Duration Frequency of Treatment 2x/Week Duration of Treatment 2 months Plan of Care Start Date 06/24/18 Plan of Care End Date 08/24/18 Next Visit Focus/Plan Next Note Type Treatment Note Next Visit Plan Cont to progress core stability exercises in standing; return to visceral mobs
--- NOTE | 2018-07-22 12:07 | PT.OTN ---
Current Diagnoses Low back pain (07/22/18) Physical Therapy Treatment Note PT-OP-A Visit Information Start: 05/01/18 09:12 Freq: Status: Active Protocol: Document 07/22/18 10:21 [facility] (Rec: 07/22/18 12:07 [facility] [id number]) Out-Patient Physical Therapy Visit Information Visit Information Visit Type Treatment Note Visit Note 15 total Visit Start Time 10:30 Visit Stop Time 11:30 Total Visit Minutes 60 Visit Number 08/04 PT-OP-B Current Condition Start: 05/01/18 09:12 Freq: Status: Active Protocol: Document 05/01/18 09:45 [facility] (Rec: 05/01/18 17:37 [facility] [id number]) Current Condition History of Current Condition History of Current Condition Pt reports last summer she was doing yard work all summer and in August, she woke up one morning and her back had gone out She could not stand up and has tried to be active and stretch to help with pain. Reports sharp pains are less but does not have her normal mobility and still gets caught hunched over sometimes and has to roll up the wall to get upright. She had a dexascan, which the MD told her showed no stenosis and her back looks great & bone density is good. Pt walks 2 miles 3 days a week along the [employer]. Treatment Goals Patient/Caregiver Goals Make sure to not lose her mobility, be able to play with her 4 & 8 year old grandkids, stairs without pain, vacuum and dig in garden without pain . PT-OP-C Subjective Start: 05/01/18 09:12 Freq: Status: Active Protocol: Document 07/22/18 10:21 [facility] (Rec: 07/22/18 12:07 [facility] [id number]) OP-PT Subjective Patient Comments Patient Comments Report sshe has mostly worked with resistance band PT-OP-J Posture/Palpation/Skin Start: 05/01/18 09:12 Freq: Status: Active Protocol: Document 05/01/18 09:45 [facility] (Rec: 05/01/18 10:40 [facility] [id number]) Posture Evaluation Meenakshi Postural Classification System Meenakshi Postural Classifications Anterior/Posterior Vertebral Compression Test 1 Elbow Flexion Test 5 Lumbar Protective Mechanism Left AP 1 Lumbar Protective Mechanism Right AP 3 Lumbar Protective Mechanism Left PA 1 Lumbar Protective Mechanism Right PA 1 Palpation Assessment Location One Palpation Location Lumbar Palpation Findings Soft Tissue Tightness Tenderness Palpation Details QL, ES, glutes B PT-OP-K Range of Motion Start: 05/01/18 09:12 Freq: Status: Active Protocol: Document 05/01/18 09:45 [facility] (Rec: 05/01/18 10:40 [facility] [id number]) Lumbar Spine Range of Motion Lumbar Spine Active Degrees Flexion 43 Extension 20 Lateral Flexion Left 30 Lateral Flexion Right 25 Comments tight L with B lat flex PT-OP-L Special Tests Start: 05/01/18 09:12 Freq: Status: Active Protocol: Document 05/01/18 09:45 [facility] (Rec: 05/01/18 10:40 [facility] [id number]) Special Tests Lumbar Spine Special Tests Slump Test Results neg Straight Leg Raise Test Results neg B Comments NEG EXT SIT PT-OP-M Strength Start: 05/01/18 09:12 Freq: Status: Active Protocol: Document 06/24/18 10:36 [facility] (Rec: 06/24/18 11:22 [facility] [id number]) Hip Strength Hip Manual Muscle Testing Right Flexion (L2) 5 Normal Extension (S1) 4 Good Abduction 5 Normal External Rotation 4 Good Internal Rotation 5 Normal Left Flexion (L2) 5 Normal Extension (S1) 4 Good Abduction 4+ Good+ External Rotation 4 Good Internal Rotation 5 Normal Comments WNL knee & ankle B PT-OP-Q Treatments Start: 05/01/18 09:12 Freq: Status: Active Protocol: Document 07/22/18 10:21 [facility] (Rec: 07/22/18 12:07 [facility] [id number]) Gym Equipment Shuttle Balance 1 Details red clips Comments fwd/back & side WBOS & NBOS & staggered stance Sport Cord 1 Exercise Details fwd, back & side walk w/alt knee drive Cord/Resistance red Reps/Duration 5 each B Comments onto 6 in step Therapeutic Exercises Standing Exercises 4 Standing Exercise Name fwd/back walk Equipment Used lvl 4 Reps/Minutes 25 ft 3 Standing Exercise Name side step Equipment Used lvl 4 Reps/Minutes 25ft Manual Therapy Treatment Soft Tissue Mobilization 4 Body Location L ilacus Mobilization Type Sustained Pressure PT-OP-R Modalities Start: 05/01/18 09:12 Freq: Status: Active Protocol: Document 07/22/18 10:21 [facility] (Rec: 07/22/18 12:07 [facility] [id number]) Hot Pack/Cold Pack Treatment Hot Pack Location LS Patient Position Hooklying Treatment Duration (minutes) 15 PT-OP-T Assessment and Plan Start: 05/01/18 09:12 Freq: Status: Active Protocol: Document 07/22/18 10:21 [facility] (Rec: 07/22/18 12:07 [facility] [id number]) Physical Therapy Assessment Goals Four Impairment MMT [facility]cf Goal (LTG) 5/5 to allow pt to participate in all of her normal activities LTG Duration -improving Two Impairment pain Short Term Goal (STG) at worst 3/10 STG Duration 07/25/18-improving (4/10 Social Work Nurse Goal (LTG) at worst 1/10 LTG Duration One Impairment JANIS Social Work Nurse Goal (LTG) 0 to show ability to do functional tasks LTG Duration Assessment Summary Assessment Pt has difficulty with maintaining neutral with side stepping. Improved ability with step ups onto 6 in step with sport cord. Physical Therapy Plan Frequency and Duration Frequency of Treatment 2x/Week Duration of Treatment 2 months Plan of Care Start Date 06/24/18 Plan of Care End Date 08/24/18 Next Visit Focus/Plan Next Note Type Treatment Note Next Visit Plan Cont to progress core stability exercises in standing; return to visceral mobs
--- NOTE | 2018-07-24 11:25 | PT.OTN ---
Current Diagnoses Low back pain (07/24/18) Physical Therapy Treatment Note PT-OP-A Visit Information Start: 05/01/18 09:12 Freq: Status: Active Protocol: Document 07/24/18 10:32 [facility] (Rec: 07/24/18 11:06 [facility] [id number]) Out-Patient Physical Therapy Visit Information Visit Information Visit Type Treatment Note Visit Note 16 total Visit Start Time 10:30 Visit Stop Time 11:30 Total Visit Minutes 60 Visit Number 12/04 PT-OP-B Current Condition Start: 05/01/18 09:12 Freq: Status: Active Protocol: Document 05/01/18 09:45 [facility] (Rec: 05/01/18 17:37 [facility] [id number]) Current Condition History of Current Condition History of Current Condition Pt reports last summer she was doing yard work all summer and in August, she woke up one morning and her back had gone out She could not stand up and has tried to be active and stretch to help with pain. Reports sharp pains are less but does not have her normal mobility and still gets caught hunched over sometimes and has to roll up the wall to get upright. She had a dexascan, which the MD told her showed no stenosis and her back looks great & bone density is good. Pt walks 2 miles 3 days a week along the [place]. Treatment Goals Patient/Caregiver Goals Make sure to not lose her mobility, be able to play with her 4 & 8 year old grandkids, stairs without pain, vacuum and dig in garden without pain . PT-OP-C Subjective Start: 05/01/18 09:12 Freq: Status: Active Protocol: Document 07/24/18 10:32 [facility] (Rec: 07/24/18 11:25 [facility] [id number]) OP-PT Subjective Patient Comments Patient Comments Pt reports compliance with HEP and feels stronger. PT-OP-J Posture/Palpation/Skin Start: 05/01/18 09:12 Freq: Status: Active Protocol: Document 05/01/18 09:45 [facility] (Rec: 05/01/18 10:40 [facility] [id number]) Posture Evaluation Meenakshi Postural Classification System Meenakshi Postural Classifications Anterior/Posterior Vertebral Compression Test 1 Elbow Flexion Test 5 Lumbar Protective Mechanism Left AP 1 Lumbar Protective Mechanism Right AP 3 Lumbar Protective Mechanism Left PA 1 Lumbar Protective Mechanism Right PA 1 Palpation Assessment Location One Palpation Location Lumbar Palpation Findings Soft Tissue Tightness Tenderness Palpation Details QL, ES, glutes B PT-OP-K Range of Motion Start: 05/01/18 09:12 Freq: Status: Active Protocol: Document 05/01/18 09:45 [facility] (Rec: 05/01/18 10:40 [facility] [id number]) Lumbar Spine Range of Motion Lumbar Spine Active Degrees Flexion 43 Extension 20 Lateral Flexion Left 30 Lateral Flexion Right 25 Comments tight L with B lat flex PT-OP-L Special Tests Start: 05/01/18 09:12 Freq: Status: Active Protocol: Document 05/01/18 09:45 [facility] (Rec: 05/01/18 10:40 [facility] [id number]) Special Tests Lumbar Spine Special Tests Slump Test Results neg Straight Leg Raise Test Results neg B Comments NEG EXT SIT PT-OP-M Strength Start: 05/01/18 09:12 Freq: Status: Active Protocol: Document 07/24/18 10:32 [facility] (Rec: 07/24/18 11:06 [facility] [id number]) Hip Strength Hip Manual Muscle Testing Right Flexion (L2) 4+ Good+ Extension (S1) 4+ Good+ Abduction 5 Normal External Rotation 4+ Good+ Internal Rotation 5 Normal Left Flexion (L2) 4+ Good+ Extension (S1) 5 Normal Abduction 5 Normal External Rotation 4+ Good+ Internal Rotation 5 Normal Knee Strength Knee Manual Muscle Testing Right Flexion (S2) 5 Normal Extension (L3) 5 Normal Left Flexion (S2) 5 Normal Extension (L3) 5 Normal PT-OP-Q Treatments Start: 05/01/18 09:12 Freq: Status: Active Protocol: Document 07/24/18 10:32 [facility] (Rec: 07/24/18 11:06 [facility] [id number]) Gym Equipment Sport Cord 1 Exercise Details fwd, back & side walk w/alt knee drive Cord/Resistance red Reps/Duration 5 each B Comments onto 6 in step Therapeutic Exercises Standing Exercises 4 Standing Exercise Name fwd/back walk Equipment Used lvl 4 Reps/Minutes 25 ft 3 Standing Exercise Name side step Equipment Used lvl 4 Reps/Minutes 25ft Other Exercises 2 Other Exercise Name abril pose & to side 1 Other Exercise Name cat/camel Manual Therapy Treatment Soft Tissue Mobilization 5 Body Location visceral mobs R to l Mobilization Type Sustained Pressure Comments W/LTR 4 Body Location L ilacus Mobilization Type Sustained Pressure 1 Body Location lumbar fascae Mobilization Type Myofascial Release Comments in cat/camel PT-OP-R Modalities Start: 05/01/18 09:12 Freq: Status: Active Protocol: Document 07/24/18 10:32 [facility] (Rec: 07/24/18 11:25 [facility] [id number]) Hot Pack/Cold Pack Treatment Hot Pack Location LS & ant L hip Patient Position Hooklying Treatment Duration (minutes) 15 PT-OP-T Assessment and Plan Start: 05/01/18 09:12 Freq: Status: Active Protocol: Document 07/24/18 10:32 [facility] (Rec: 07/24/18 11:06 [facility] [id number]) Physical Therapy Assessment Goals Four Impairment MMT Security Operations Center Analyst Goal (LTG) 5/5 to allow pt to participate in all of her normal activities LTG Duration 09/23/18-improving Two Impairment pain Short Term Goal (STG) at worst 3/10 STG Duration achieved with [facility] Goal (LTG) at worst 1/10 LTG Duration 09/23/18 One Impairment JANIS Security Operations Center Analyst Goal (LTG) 0 to show ability to do functional tasks LTG Duration 09/23/18 Assessment Summary Assessment Pt cont to make functional improvements, but cont to have ant pain in L hip and occasional LBP. Physical Therapy Plan Frequency and Duration Frequency of Treatment 1x/Week Duration of Treatment 2 months Plan of Care Start Date 07/24/18 Plan of Care End Date 09/23/18 Therapeutic Interventions Therapeutic Interventions Aquatic Therapy Balance Training Gait Training Home Exercise Program Joint Mobilizations Manual Therapy Soft Tissue Mobilization Taping Therapeutic Exercises Modalities Cold Pack/Ice Massage Electric Stimulation Hot Packs Traction- Mechanical Ultrasound Next Visit Focus/Plan Next Note Type Treatment Note Next Visit Plan Cont to progress core stability exercises in standing; visceral mobs
--- NOTE | 2018-07-24 11:25 | PT.OPPOC ---
Current Diagnoses Low back pain (07/24/18) Provider Visit Care Team Role Provider Type Nory Holman MD Attending Provider Physician Primary Care Provider Specialty: Family Practice Address: [address] [place] [address], [id number] Email: [email or web address] Plan Of Care PT-OP-T Assessment and Plan Start: 05/01/18 09:12 Freq: Status: Active Protocol: Document 07/24/18 10:32 [facility] (Rec: 07/24/18 11:06 [facility] [id number]) Physical Therapy Assessment Goals Four Impairment MMT Side Door Man Goal (LTG) 5/5 to allow pt to participate in all of her normal activities LTG Duration 09/23/18-improving Two Impairment pain Short Term Goal (STG) at worst 3/10 STG Duration achieved with LB Side Door Man Goal (LTG) at worst 1/10 LTG Duration 09/23/18 One Impairment JANIS Side Door Man Goal (LTG) 0 to show ability to do functional tasks LTG Duration 09/23/18 Assessment Summary Assessment Pt cont to make functional improvements, but cont to have ant pain in L hip and occasional LBP. Physical Therapy Plan Frequency and Duration Frequency of Treatment 1x/Week Duration of Treatment 2 months Plan of Care Start Date 07/24/18 Plan of Care End Date 09/23/18 Therapeutic Interventions Therapeutic Interventions Aquatic Therapy Balance Training Gait Training Home Exercise Program Joint Mobilizations Manual Therapy Soft Tissue Mobilization Taping Therapeutic Exercises Modalities Cold Pack/Ice Massage Electric Stimulation Hot Packs Traction- Mechanical Ultrasound Next Visit Focus/Plan Next Note Type Treatment Note Next Visit Plan Cont to progress core stability exercises in standing; visceral mobs Plan of Care Dates Plan of Care Start Date 07/24/18 Plan of Care End Date 09/23/18 Please Sign and Return: I have reviewed this Plan of Care and certify that the skilled therapy services above are required to meet the patient?s needs. Physician Signature Date Printed Name and Credentials Clinical Instructor Signature Printed Name and Credentials
--- NOTE | 2018-08-28 11:40 | PT.OTN ---
Current Diagnoses Low back pain (08/28/18) Physical Therapy Treatment Note PT-OP-A Visit Information Start: 05/01/18 09:12 Freq: Status: Active Protocol: Document 08/28/18 11:28 [facility] (Rec: 08/28/18 11:39 [facility] [id number]) Out-Patient Physical Therapy Visit Information Visit Information Visit Type Discharge Summary Visit Note 17 total Visit Start Time 10:30 Visit Stop Time 11:30 Total Visit Minutes 60 Visit Number 12/04 PT-OP-B Current Condition Start: 05/01/18 09:12 Freq: Status: Active Protocol: Document 05/01/18 09:45 [facility] (Rec: 05/01/18 17:37 [facility] [id number]) Current Condition History of Current Condition History of Current Condition Pt reports last summer she was doing yard work all summer and in August, she woke up one morning and her back had gone out She could not stand up and has tried to be active and stretch to help with pain. Reports sharp pains are less but does not have her normal mobility and still gets caught hunched over sometimes and has to roll up the wall to get upright. She had a dexascan, which the MD told her showed no stenosis and her back looks great & bone density is good. Pt walks 2 miles 3 days a week along the [employer] [place]. Treatment Goals Patient/Caregiver Goals Make sure to not lose her mobility, be able to play with her 4 & 8 year old grandkids, stairs without pain, vacuum and dig in garden without pain . PT-OP-C Subjective Start: 05/01/18 09:12 Freq: Status: Active Protocol: Document 08/28/18 11:28 [facility] (Rec: 08/28/18 11:39 [facility] [id number]) OP-PT Subjective Patient Comments Patient Comments Pt reports her back did well during her travels. She did have some pain, but it was much less and hip felt good. Patient Questionnaires Lower Extremity Functional Scale LEFS Score 1 LEFS Impairment 1 to 19% Impaired (Score 63-79 ) PT-OP-J Posture/Palpation/Skin Start: 05/01/18 09:12 Freq: Status: Active Protocol: Document 08/28/18 11:28 [facility] (Rec: 08/28/18 11:39 [facility] [id number]) Posture Evaluation [facility] Postural Classification System Vertebral Compression Test 5 Elbow Flexion Test 5 Lumbar Protective Mechanism Left AP 3 Lumbar Protective Mechanism Right AP 5 Lumbar Protective Mechanism Left PA 5 Lumbar Protective Mechanism Right PA 5 Leg Swing Left Hard End Feel Limited Leg Swing Right WNL PT-OP-K Range of Motion Start: 05/01/18 09:12 Freq: Status: Active Protocol: Document 05/01/18 09:45 [facility] (Rec: 05/01/18 10:40 [facility] [id number]) Lumbar Spine Range of Motion Lumbar Spine Active Degrees Flexion 43 Extension 20 Lateral Flexion Left 30 Lateral Flexion Right 25 Comments tight L with B lat flex PT-OP-L Special Tests Start: 05/01/18 09:12 Freq: Status: Active Protocol: Document 05/01/18 09:45 [facility] (Rec: 05/01/18 10:40 [facility] [id number]) Special Tests Lumbar Spine Special Tests Slump Test Results neg Straight Leg Raise Test Results neg B Comments NEG EXT SIT PT-OP-M Strength Start: 05/01/18 09:12 Freq: Status: Active Protocol: Document 08/28/18 11:28 [facility] (Rec: 08/28/18 11:39 [facility] [id number]) Hip Strength Hip Manual Muscle Testing Right Flexion (L2) 4+ Good+ Extension (S1) 4+ Good+ Abduction 5 Normal External Rotation 5 Normal Internal Rotation 5 Normal Left Flexion (L2) 4+ Good+ Extension (S1) 4 Good Abduction 5 Normal External Rotation 4+ Good+ Internal Rotation 5 Normal PT-OP-Q Treatments Start: 05/01/18 09:12 Freq: Status: Active Protocol: Document 08/28/18 11:28 [facility] (Rec: 08/28/18 11:39 [facility] [id number]) Therapeutic Exercises Supine Exercises 6 Supine Exercise Name bridge with alt january Comments w/ compression for facilitation 5 Supine Exercise Name SLR with core 3 Supine Exercise Name rain test stretch 2 Supine Exercise Name abdominal series Sidelying Exercises 3 Sidelying Exercise Name clamshell Equipment Used lvl 2 Standing Exercises 4 Standing Exercise Name fwd/back walk Equipment Used lvl 2 Reps/Minutes 25 ft 3 Standing Exercise Name SLS w/january 2 Standing Exercise Name hip ext Equipment Used L1 1 Standing Exercise Name hip flexor stretch Manual Therapy Treatment Soft Tissue Mobilization 4 Body Location L ilacus Mobilization Type Sustained Pressure Comments good mobility Joint Mobilizations 3 Joint innominate Direction L ext Self-Care/Home Management Treatment Activities Self-Care/Home Management Activities Review HEP PT-OP-R Modalities Start: 05/01/18 09:12 Freq: Status: Active Protocol: Document 08/28/18 11:28 [facility] (Rec: 08/28/18 11:40 [facility] [id number]) Hot Pack/Cold Pack Treatment Hot Pack Location LS Patient Position Hooklying Treatment Duration (minutes) 15 PT-OP-T Assessment and Plan Start: 05/01/18 09:12 Freq: Status: Active Protocol: Document 08/28/18 11:28 [facility] (Rec: 08/28/18 11:39 [facility] [id number]) Physical Therapy Assessment Goals Four Impairment MMT Table Games Shift Manager Goal (LTG) 5/5 to allow pt to participate in all of her normal activities LTG Duration 09/23/18-improving Two Impairment pain Short Term Goal (STG) at worst 3/10 STG Duration achieved Table Games Shift Manager Goal (LTG) at worst 1/10 LTG Duration 09/23/18-improving One Impairment JANIS Alf Goal (LTG) 0 to show ability to do functional tasks LTG Duration 09/23/18- 1/50 excellent progress Assessment Summary Assessment Pt is doing well with HEP and indep with exercises. Improved core stability measured today and overall functional ability is improved. Pt is d/c from PT Physical Therapy Plan Discharge Physical Therapy Discharge Comments Pt is indep with HEP & is progressing with strength. She did well with 1 month away from PT d/t travelling time and progressed in core stability
== END 2018-09-08 14:56 ==
LOC: PHYS 10:30
PROVIDERS: PCP Family Medicine; Visit Provider Family Medicine
DX: M54.5 Low back pain (principal)
CPT/HCPCS: 97010; 97110; 97112; 97116; 97140; 97161; 97530; 97535

== ENCOUNTER → 2019-03-04 10:13 | Outpatient (CLI) | payer MEDICARE, OTHER, SELFPAY ==
[2019-03-04 10:52] LABS: Cholesterol 174 mg/dL (140-199); Glucose 94 mg/dL (80-110); HDL Cholesterol 55 mg/dL (40-60); LDL Cholesterol Calculated 89 mg/dL (<100); Triglycerides 148 mg/dL (35-150)
== END ==
PROVIDERS: PCP Family Medicine; Visit Provider Family Medicine
DX: Z13.220 Encounter for screening for lipoid disorders (principal); Z13.1 Encounter for screening for diabetes mellitus
CPT/HCPCS: 36415; 80061; 82947

== ENCOUNTER → 2019-03-05 12:41 | Outpatient (CLI) | payer MEDICARE, OTHER, SELFPAY ==
[2019-03-07 17:13] LABS: Fecal Immunochemical Test NOT DETECTED (NOT DETECTED)
== END ==
PROVIDERS: PCP Family Medicine; Visit Provider Family Medicine
DX: Z12.11 Encounter for screening for malignant neoplasm of colon (principal)
CPT/HCPCS: 82274

== ENCOUNTER 2020-06-16 09:45 | Outpatient (RCR) | payer MEDICARE, OTHER, SELFPAY ==
--- NOTE | 2019-10-29 17:58 | PT.OIE ---
Current Diagnoses Pain in left hip (10/29/19) Pain in left knee (10/29/19) Low back pain (10/29/19) Abnormal posture (10/29/19) Weakness (10/29/19) Past Medical History (Last Updated 05/01/18 @ 17:40 by Nichelle Hernandez, PT) Neck pain (Acute) Past Surgical History (Last Reviewed 05/01/18 @ 17:40 by Nichelle Hernandez, PT) Status post breast biopsy Status post delivery Status post delivery Status post hysterectomy (07/07/12) Visit Care Team Role Provider Type Nichelle Roy MD Attending Provider Physician Primary Care Provider Specialty: Family Practice Address: [address] [place] [address], [facility] Email: [email or web address] Physical Therapy Initial Evaluation PT-OP-A Visit Information Start: 10/29/19 11:20 Freq: Status: Active Protocol: Document 10/29/19 11:22 [facility] (Rec: 10/29/19 12:07 [facility] [id number]) Out-Patient Physical Therapy Visit Information Visit Information Visit Type Initial Evaluation Visit Start Time 11:15 Visit Stop Time 12:00 Total Visit Minutes 45 Visit Number 1 Number of ROTO MIXER OPERATOR Visits 0 PT-OP-B Current Condition Start: 10/29/19 11:20 Freq: Status: Active Protocol: Document 10/29/19 11:22 [facility] (Rec: 10/29/19 12:07 [facility] [id number]) Current Condition History of Current Condition Onset Date knee pain about 3 months ago Current Complaints L knee pain & L LB & hip pain History of Current Condition Pt reports she has history of LBP that she did PT for and she later found out 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 Pt started recently to have L knee pain and was told she needs a TKA. She cannot have sx until her is done with cancer treatment in 4 moths hopefully . She had an infection in her L knee that idd not do much. She gets a sharp LBP and has a loss of strength where she feels like she is going to fall in L LBP and L hip. She has not been walking recently but she has been really active with grandkids. Pt reprots the L knee pain has just gradually started and started burning and disturbing sleep at night. Prior Treatments and Tests PT for LBP, coritzone injection Developmental History Developmental History Pt has hx of endrometrial CA & did D&C &considered CA free, LBP, L hip pain Treatment Goals Patient/Caregiver Goals Keep muscles strong prior to TKA. PT-OP-C Subjective Start: 10/29/19 11:20 Freq: Status: Active Protocol: Document 10/29/19 11:22 [facility] (Rec: 10/29/19 12:07 [facility] [id number]) Patient Questionnaires Lower Extremity Functional Scale LEFS Score 40 LEFS Impairment 40 to 59% Impaired (Score 32- 47) OP-PT Pain Assessment Location L knee pain Pain Location Details med knee Description Burning,Sharp Description- Other worst: prior to injection 5/10 Other Pain Aggravating Factors side to side movement, pivoting, down stairs, squatting down Pain Alleviating Factors Heat,Medication Left Back Pain Location Details L SI region & hip Description Sharp Description- Other gives out d/t sharp pain at very severe pain Frequency Occasional Pain Aggravating Factors Bending Other Pain Aggravating Factors sitting extended Pain Alleviating Factors Heat Other Pain Alleviating Factors straightening up and stretched out PT-OP-F Manual Assessment Start: 10/29/19 11:20 Freq: Status: Active Protocol: Document 10/29/19 11:22 [facility] (Rec: 10/29/19 12:07 [facility] [id number]) Manual Assessments Joint Mobility Assessment Joint Mobility Assessment L Iliac crest higher & greater trocher equal; compensated supinated feet B, B femurs IR, R tibia IR, L tibia ER; knee bend goes toward med of 1st toe PT-OP-G Mobility & Gait Start: 10/29/19 11:20 Freq: Status: Active Protocol: Document 10/29/19 11:22 [facility] (Rec: 10/29/19 12:07 [facility] [id number]) OP Gait Assessment Comments Gait Comments Dec wt accpetance on LLE with lat lean over LLE with stance on LLE, dec push off B L>R PT-OP-J Posture/Palpation/Skin Start: 10/29/19 11:20 Freq: Status: Active Protocol: Document 10/29/19 11:22 [facility] (Rec: 10/29/19 12:07 [facility] [id number]) Posture Evaluation [facility] Postural Classification System Meenakshi Postural Classifications Vertical/Posterior Lumbar Protective Mechanism Left AP 1 Lumbar Protective Mechanism Right AP 2 Lumbar Protective Mechanism Left PA 0 Lumbar Protective Mechanism Right PA 2 PT-OP-K Range of Motion Start: 10/29/19 11:20 Freq: Status: Active Protocol: Document 10/29/19 11:22 [facility] (Rec: 10/29/19 12:07 [facility] [id number]) Knee Goniometric Range of Motion Knee Right Flexion Active (degrees) 129 Extension Active (degrees) 0 Left Flexion Active (degrees) 124 Extension Active (degrees) 5 PT-OP-L Special Tests Start: 10/29/19 11:20 Freq: Status: Active Protocol: Document 10/29/19 11:22 [facility] (Rec: 10/29/19 12:07 [facility] [id number]) Special Tests Lumbar Spine Special Tests rain test Test Results mild quad tightness Straight Leg Raise Test Results mild HS tightness B PT-OP-M Strength Start: 10/29/19 11:20 Freq: Status: Active Protocol: Document 10/29/19 11:22 [facility] (Rec: 10/29/19 12:07 [facility] [id number]) Hip Strength Hip Manual Muscle Testing Right Flexion (L2) 4+ Good+ Extension (S1) 4- Good- Abduction 4- Good- Adduction 4+ Good+ External Rotation 3+ Fair+ Internal Rotation 5 Normal Left Flexion (L2) 4- Good- Extension (S1) 4- Good- Abduction 4- Good- Adduction 3 Fair External Rotation 3+ Fair+ Internal Rotation 3+ Fair+ Knee Strength Knee Manual Muscle Testing Left Flexion (S2) 5 Normal Extension (L3) 4+ Good+ Right Flexion (S2) 5 Normal Extension (L3) 5 Normal Ankle/Foot Strength Ankle and Foot Manual Muscle Testing Right Dorsiflexion (L4) 5 Normal Plantarflexion (S1) 5 Normal Left Dorsiflexion (L4) 5 Normal Plantarflexion (S1) 5 Normal Comments tested PF seated B PT-OP-Q Treatments Start: 10/29/19 11:20 Freq: Status: Active Protocol: Document 10/29/19 11:22 [facility] (Rec: 10/29/19 12:07 [facility] [id number]) Therapeutic Exercises Supine Exercises 6 Supine Exercise Name SLR focus on core Side left Reps/Minutes 10 5 Supine Exercise Name single leg isometric flex for abdomenal engagmetn Side left Reps/Minutes 15 sec PT-OP-T Assessment and Plan Start: 10/29/19 11:20 Freq: Status: Active Protocol: Document 10/29/19 11:22 [facility] (Rec: 10/29/19 12:07 [facility] [id number]) Physical Therapy Assessment Rehab Potential Rehabilitation Potential Good Evaluation Complexity Number of Personal Factors/Comorbidities 3 or More Number of Body Systems Impaired 4 or More Clinical Presentation at Evaluation Evolving Impairments Impairments Activity Tolerance,Balance, Functional Activities, Functional Mobility,Gait,Pain, Posture,ROM,Soft Tissue Mobility,Strength Goals Three Short Term Goal (STG) Pt will present with good standing and sitting posture without cueing. STG Duration 11/29/19 Fund Raiser Goal (LTG) Pt will have improved gait with demonstrating improved push off B in order to dec instances of L knee and hip pain. LTG Duration 12/30/19 Two Fund Raiser Goal (LTG) Pt will be able to do lateral and twisting motions without pain in order to allow her to do typical kitchen movements and paly with grandkids without pain. LTG Duration 12/30/19 One Impairment strength Short Term Goal (STG) Pt will be indep with HEP. STG Duration 11/29/19 Prison Goal (LTG) Pt will ahve 5/5 LE strength and 4/5 LPM and VCT in order to demonstrate improved postural stability and core stabilityt o allow her to do typical activities in kitchen and with grandkids without inc pain. LTG Duration 12/30/19 Assessment Summary Assessment Pt presents with L knee pain especially with lateral movements and twisting. She has dec overall postural stability, dec core stabilty and dec LE strengthw hich likely contributes to this. Pt has hx of LBP and L hip pain which likely contributes to her current knee dysfuction as she has femoral internal rotation noted in standing along with tibial ER, whcih likely creates a compression force at the knee. She would benefit from skilled PT to improved lower body mechanics including addressing innominate, lumbosacral, hip, knee, and foot and [place] mobility. Physical Therapy Plan Frequency and Duration Frequency of Treatment 2x/Week Duration of Treatment 2 months Plan of Care Start Date 10/29/19 Plan of Care End Date 12/30/19 Therapeutic Interventions Therapeutic Interventions Aquatic Therapy,Balance Training,Gait Training,Home Exercise Program,Joint Mobilizations,Manual Therapy, Neuromuscular Re-education, Patient/Caregiver Education, Self-Care/Home Management,Soft Tissue Mobilization,Taping, Therapeutic Activities, Therapeutic Exercises Modalities Cold Pack/Ice Massage,Electric Stimulation,Hot Packs, Infrared Therapy,Iontophoresis ,Ultrasound Next Visit Focus/Plan Next Note Type Treatment Note Next Visit Plan hip strengthening exercises ( hip abd, clamshell, squats, lunges), manual therapy to L knee and hip
--- NOTE | 2019-11-05 18:06 | PT.OTN ---
Current Diagnoses Pain in left hip (11/05/19) Pain in left knee (11/05/19) Low back pain (11/05/19) Abnormal posture (11/05/19) Weakness (11/05/19) Physical Therapy Treatment Note PT-OP-A Visit Information Start: 10/29/19 11:20 Freq: Status: Active Protocol: Document 11/05/19 16:57 [facility] (Rec: 11/05/19 18:04 [facility] [id number]) Out-Patient Physical Therapy Visit Information Visit Information Visit Type Treatment Note Visit Start Time 16:51 Visit Stop Time 17:46 Total Visit Minutes 55 Visit Number 2 Number of REGISTERED HEALTH NURSE Visits 0 PT-OP-B Current Condition Start: 10/29/19 11:20 Freq: Status: Active Protocol: Document 10/29/19 11:22 [facility] (Rec: 10/29/19 12:07 [facility] [id number]) Current Condition History of Current Condition Onset Date knee pain about 3 months ago Current Complaints L knee pain & L LB & hip pain History of Current Condition Pt reports she has history of LBP that she did PT for and she later found out 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 Pt started recently to have L knee pain and was told she needs a TKA. She cannot have sx until her is done with cancer treatment in 4 moths hopefully . She had an infection in her L knee that idd not do much. She gets a sharp LBP and has a loss of strength where she feels like she is going to fall in L LBP and L hip. She has not been walking recently but she has been really active with grandkids. Pt reprots the L knee pain has just gradually started and started burning and disturbing sleep at night. Prior Treatments and Tests PT for LBP, coritzone injection Developmental History Developmental History Pt has hx of endrometrial CA & did D&C &considered CA free, LBP, L hip pain Treatment Goals Patient/Caregiver Goals Keep muscles strong prior to TKA. PT-OP-C Subjective Start: 10/29/19 11:20 Freq: Status: Active Protocol: Document 11/05/19 16:57 [facility] (Rec: 11/05/19 18:04 [facility] [id number]) OP-PT Subjective Patient Comments Patient Comments Pt reports she hasn't done her exercise the past couple days . PT-OP-F Manual Assessment Start: 10/29/19 11:20 Freq: Status: Active Protocol: Document 10/29/19 11:22 [facility] (Rec: 10/29/19 12:07 [facility] [id number]) Manual Assessments Joint Mobility Assessment Joint Mobility Assessment L Iliac crest higher & greater trocher equal; compensated supinated feet B, B femurs IR, R tibia IR, L tibia ER; knee bend goes toward med of 1st toe PT-OP-G Mobility & Gait Start: 10/29/19 11:20 Freq: Status: Active Protocol: Document 10/29/19 11:22 [facility] (Rec: 10/29/19 12:07 [facility] [id number]) OP Gait Assessment Comments Gait Comments Dec wt accpetance on LLE with lat lean over LLE with stance on LLE, dec push off B L>R PT-OP-J Posture/Palpation/Skin Start: 10/29/19 11:20 Freq: Status: Active Protocol: Document 10/29/19 11:22 [facility] (Rec: 10/29/19 12:07 [facility] [id number]) Posture Evaluation Meenakshi Postural Classification System Meenakshi Postural Classifications Vertical/Posterior Lumbar Protective Mechanism Left AP 1 Lumbar Protective Mechanism Right AP 2 Lumbar Protective Mechanism Left PA 0 Lumbar Protective Mechanism Right PA 2 PT-OP-K Range of Motion Start: 10/29/19 11:20 Freq: Status: Active Protocol: Document 10/29/19 11:22 [facility] (Rec: 10/29/19 12:07 [facility] [id number]) Knee Goniometric Range of Motion Knee Right Flexion Active (degrees) 129 Extension Active (degrees) 0 Left Flexion Active (degrees) 124 Extension Active (degrees) 5 PT-OP-L Special Tests Start: 10/29/19 11:20 Freq: Status: Active Protocol: Document 10/29/19 11:22 [facility] (Rec: 10/29/19 12:07 [facility] [id number]) Special Tests Lumbar Spine Special Tests rain test Test Results mild quad tightness Straight Leg Raise Test Results mild HS tightness B PT-OP-M Strength Start: 10/29/19 11:20 Freq: Status: Active Protocol: Document 10/29/19 11:22 [facility] (Rec: 10/29/19 12:07 [facility] [id number]) Hip Strength Hip Manual Muscle Testing Right Flexion (L2) 4+ Good+ Extension (S1) 4- Good- Abduction 4- Good- Adduction 4+ Good+ External Rotation 3+ Fair+ Internal Rotation 5 Normal Left Flexion (L2) 4- Good- Extension (S1) 4- Good- Abduction 4- Good- Adduction 3 Fair External Rotation 3+ Fair+ Internal Rotation 3+ Fair+ Knee Strength Knee Manual Muscle Testing Left Flexion (S2) 5 Normal Extension (L3) 4+ Good+ Right Flexion (S2) 5 Normal Extension (L3) 5 Normal Ankle/Foot Strength Ankle and Foot Manual Muscle Testing Right Dorsiflexion (L4) 5 Normal Plantarflexion (S1) 5 Normal Left Dorsiflexion (L4) 5 Normal Plantarflexion (S1) 5 Normal Comments tested PF seated B PT-OP-Q Treatments Start: 10/29/19 11:20 Freq: Status: Active Protocol: Document 11/05/19 16:57 [facility] (Rec: 11/05/19 18:04 [facility] [id number]) Therapeutic Exercises Supine Exercises 6 Supine Exercise Name SLR focus on core Side left Reps/Minutes 10 5 Supine Exercise Name single leg isometric flex for abdomenal engagmetn Side left Reps/Minutes 15 sec Sidelying Exercises 3 Sidelying Exercise Name clamshell Side bilateral Reps/Minutes 20 2 Sidelying Exercise Name hip abd Side bilateral Reps/Minutes 15 Standing Exercises 4 Standing Exercise Name squat Side bilateral Reps/Minutes 15 Comments over chair 3 Standing Exercise Name lunge Side bilateral Reps/Minutes 8 Comments counter balance Manual Therapy Treatment Soft Tissue Mobilization 5 Body Location vmo med border Mobilization Type Strumming Comments w/SAQ 4 Body Location VL Mobilization Type Strumming Comments w/SAQ Joint Mobilizations 3 Joint PF Direction sup, med, inf PT-OP-R Modalities Start: 10/29/19 11:20 Freq: Status: Active Protocol: Document 11/05/19 16:57 [facility] (Rec: 11/05/19 18:04 [facility] [id number]) Hot Pack/Cold Pack Treatment Hot Pack Location lumbar & L knee Patient Position Hooklying Treatment Duration (minutes) 15 PT-OP-T Assessment and Plan Start: 10/29/19 11:20 Freq: Status: Active Protocol: Document 11/05/19 16:57 [facility] (Rec: 11/05/19 18:06 [facility] [id number]) Physical Therapy Assessment Goals Three Short Term Goal (STG) Pt will present with good standing and sitting posture without cueing. STG Duration 11/29/19 Cement Despatch Operator Goal (LTG) Pt will have improved gait with demonstrating improved push off B in order to dec instances of L knee and hip pain. LTG Duration 12/30/19 Two Cement Despatch Operator Goal (LTG) Pt will be able to do lateral and twisting motions without pain in order to allow her to do typical kitchen movements and paly with grandkids without pain. LTG Duration 12/30/19 One Impairment strength Short Term Goal (STG) Pt will be indep with HEP. STG Duration 11/29/19 Cement Despatch Operator Goal (LTG) Pt will ahve 5/5 LE strength and 4/5 LPM and VCT in order to demonstrate improved postural stability and core stabilityt o allow her to do typical activities in kitchen and with grandkids without inc pain. LTG Duration 12/30/19 Assessment Summary Assessment Pt able to do all exercises with significnat cueing for set up. She required cueing for core stability & appropriate knee tracking in standing exercises. She has significant tightness along borders of quads that improves with STM. Physical Therapy Plan Frequency and Duration Frequency of Treatment 2x/Week Duration of Treatment 2 months Plan of Care Start Date 10/29/19 Plan of Care End Date 12/30/19 Therapeutic Interventions Therapeutic Interventions Aquatic Therapy,Balance Training,Gait Training,Home Exercise Program,Joint Mobilizations,Manual Therapy, Neuromuscular Re-education, Patient/Caregiver Education, Self-Care/Home Management,Soft Tissue Mobilization,Taping, Therapeutic Activities, Therapeutic Exercises Modalities Cold Pack/Ice Massage,Electric Stimulation,Hot Packs, Infrared Therapy,Iontophoresis ,Ultrasound Next Visit Focus/Plan Next Note Type Treatment Note Next Visit Plan review HEP, manual therapy to L knee and hip
--- NOTE | 2019-11-09 09:57 | PT.OTN ---
Current Diagnoses Pain in left hip (11/09/19) Pain in left knee (11/09/19) Low back pain (11/09/19) Abnormal posture (11/09/19) Weakness (11/09/19) Physical Therapy Treatment Note PT-OP-A Visit Information Start: 10/29/19 11:20 Freq: Status: Active Protocol: Document 11/09/19 09:31 [facility] (Rec: 11/09/19 09:57 [facility] [id number]) Out-Patient Physical Therapy Visit Information Visit Information Visit Type Treatment Note Visit Start Time 08:15 Visit Stop Time 09:15 Total Visit Minutes 60 Visit Number 3/ Number of COPY ROOM TECHNICIAN Visits 0 PT-OP-B Current Condition Start: 10/29/19 11:20 Freq: Status: Active Protocol: Document 10/29/19 11:22 [facility] (Rec: 10/29/19 12:07 [facility] [id number]) Current Condition History of Current Condition Onset Date knee pain about 3 months ago Current Complaints L knee pain & L LB & hip pain History of Current Condition Pt reports she has history of LBP that she did PT for and she later found out 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 Pt started recently to have L knee pain and was told she needs a TKA. She cannot have sx until her is done with cancer treatment in 4 moths hopefully . She had an infection in her L knee that idd not do much. She gets a sharp LBP and has a loss of strength where she feels like she is going to fall in L LBP and L hip. She has not been walking recently but she has been really active with grandkids. Pt reprots the L knee pain has just gradually started and started burning and disturbing sleep at night. Prior Treatments and Tests PT for LBP, coritzone injection Developmental History Developmental History Pt has hx of endrometrial CA & did D&C &considered CA free, LBP, L hip pain Treatment Goals Patient/Caregiver Goals Keep muscles strong prior to TKA. PT-OP-C Subjective Start: 10/29/19 11:20 Freq: Status: Active Protocol: Document 11/09/19 09:31 [facility] (Rec: 11/09/19 09:57 [facility] [id number]) OP-PT Subjective Patient Comments Patient Comments Pt reports she tried the side leg lifts at home. She will be too busy for the holidays to come in for the next 2 weeks but will plan to work on [employer]. Feels like shot is wearing off. PT-OP-F Manual Assessment Start: 10/29/19 11:20 Freq: Status: Active Protocol: Document 10/29/19 11:22 [facility] (Rec: 10/29/19 12:07 [facility] [id number]) Manual Assessments Joint Mobility Assessment Joint Mobility Assessment L Iliac crest higher & greater trocher equal; compensated supinated feet B, B femurs IR, R tibia IR, L tibia ER; knee bend goes toward med of 1st toe PT-OP-G Mobility & Gait Start: 10/29/19 11:20 Freq: Status: Active Protocol: Document 10/29/19 11:22 [facility] (Rec: 10/29/19 12:07 [facility] [id number]) OP Gait Assessment Comments Gait Comments Dec wt accpetance on LLE with lat lean over LLE with stance on LLE, dec push off B L>R PT-OP-J Posture/Palpation/Skin Start: 10/29/19 11:20 Freq: Status: Active Protocol: Document 10/29/19 11:22 [facility] (Rec: 10/29/19 12:07 [facility] [id number]) Posture Evaluation Meenakshi Postural Classification System Meenakshi Postural Classifications Vertical/Posterior Lumbar Protective Mechanism Left AP 1 Lumbar Protective Mechanism Right AP 2 Lumbar Protective Mechanism Left PA 0 Lumbar Protective Mechanism Right PA 2 PT-OP-K Range of Motion Start: 10/29/19 11:20 Freq: Status: Active Protocol: Document 10/29/19 11:22 [facility] (Rec: 10/29/19 12:07 [facility] [id number]) Knee Goniometric Range of Motion Knee Right Flexion Active (degrees) 129 Extension Active (degrees) 0 Left Flexion Active (degrees) 124 Extension Active (degrees) 5 PT-OP-L Special Tests Start: 10/29/19 11:20 Freq: Status: Active Protocol: Document 10/29/19 11:22 [facility] (Rec: 10/29/19 12:07 [facility] [id number]) Special Tests Lumbar Spine Special Tests rain test Test Results mild quad tightness Straight Leg Raise Test Results mild HS tightness B PT-OP-M Strength Start: 10/29/19 11:20 Freq: Status: Active Protocol: Document 10/29/19 11:22 [facility] (Rec: 10/29/19 12:07 [facility] [id number]) Hip Strength Hip Manual Muscle Testing Right Flexion (L2) 4+ Good+ Extension (S1) 4- Good- Abduction 4- Good- Adduction 4+ Good+ External Rotation 3+ Fair+ Internal Rotation 5 Normal Left Flexion (L2) 4- Good- Extension (S1) 4- Good- Abduction 4- Good- Adduction 3 Fair External Rotation 3+ Fair+ Internal Rotation 3+ Fair+ Knee Strength Knee Manual Muscle Testing Left Flexion (S2) 5 Normal Extension (L3) 4+ Good+ Right Flexion (S2) 5 Normal Extension (L3) 5 Normal Ankle/Foot Strength Ankle and Foot Manual Muscle Testing Right Dorsiflexion (L4) 5 Normal Plantarflexion (S1) 5 Normal Left Dorsiflexion (L4) 5 Normal Plantarflexion (S1) 5 Normal Comments tested PF seated B PT-OP-Q Treatments Start: 10/29/19 11:20 Freq: Status: Active Protocol: Document 11/09/19 09:31 [facility] (Rec: 11/09/19 09:57 [facility] [id number]) Therapeutic Exercises Supine Exercises 6 Supine Exercise Name SLR focus on core Side bilateral Reps/Minutes 10 5 Supine Exercise Name single leg isometric flex for abdomenal engagmetn Side bilateral Reps/Minutes 15 sec 4 Supine Exercise Name bridge Side bilateral Reps/Minutes 10 3 Supine Exercise Name LTR Side bilateral Reps/Minutes 10 Comments focus on segmental stability Sidelying Exercises 3 Sidelying Exercise Name clamshell Side bilateral Reps/Minutes 10 2 Sidelying Exercise Name hip abd Side bilateral Reps/Minutes 10 Standing Exercises 4 Standing Exercise Name squat Side bilateral Reps/Minutes 15 Comments over chair 3 Standing Exercise Name lunge Side bilateral Reps/Minutes 10 Comments counter balance Manual Therapy Treatment Soft Tissue Mobilization 5 Body Location vmo med border Mobilization Type Rolling,Strumming 4 Body Location VL Mobilization Type Rolling,Strumming PT-OP-R Modalities Start: 10/29/19 11:20 Freq: Status: Active Protocol: Document 11/09/19 09:31 [facility] (Rec: 11/09/19 09:57 [facility] [id number]) Hot Pack/Cold Pack Treatment Hot Pack Location lumbar & L knee Patient Position Hooklying Treatment Duration (minutes) 15 PT-OP-T Assessment and Plan Start: 10/29/19 11:20 Freq: Status: Active Protocol: Document 11/09/19 09:31 [facility] (Rec: 11/09/19 09:57 [facility] [id number]) Physical Therapy Assessment Goals Three Short Term Goal (STG) Pt will present with good standing and sitting posture without cueing. STG Duration 11/29/19 Fiscal Technician Goal (LTG) Pt will have improved gait with demonstrating improved push off B in order to dec instances of L knee and hip pain. LTG Duration 12/30/19 Two Fiscal Technician Goal (LTG) Pt will be able to do lateral and twisting motions without pain in order to allow her to do typical kitchen movements and paly with grandkids without pain. LTG Duration 12/30/19 One Impairment strength Short Term Goal (STG) Pt will be indep with HEP. STG Duration 11/29/19 Alf Goal (LTG) Pt will ahve 5/5 LE strength and 4/5 LPM and VCT in order to demonstrate improved postural stability and core stabilityt o allow her to do typical activities in kitchen and with grandkids without inc pain. LTG Duration 12/30/19 Assessment Summary Assessment Pt did well with supine exercies today with min cuieng , but still required cueing for setup and form with s/l and standing exercises. She cont to have tendency with squat and lunge to have knees come forward over toes, creating inc force. Physical Therapy Plan Frequency and Duration Frequency of Treatment 2x/Week Duration of Treatment 2 months Plan of Care Start Date 10/29/19 Plan of Care End Date 12/30/19 Therapeutic Interventions Therapeutic Interventions Aquatic Therapy,Balance Training,Gait Training,Home Exercise Program,Joint Mobilizations,Manual Therapy, Neuromuscular Re-education, Patient/Caregiver Education, Self-Care/Home Management,Soft Tissue Mobilization,Taping, Therapeutic Activities, Therapeutic Exercises Modalities Cold Pack/Ice Massage,Electric Stimulation,Hot Packs, Infrared Therapy,Iontophoresis ,Ultrasound Next Visit Focus/Plan Next Note Type Treatment Note Next Visit Plan review HEP (S/L and standing exercises), manual therapy to L knee and hip
--- NOTE | 2019-11-12 09:46 | PT.OTN ---
Current Diagnoses Pain in left hip (11/12/19) Pain in left knee (11/12/19) Low back pain (11/12/19) Abnormal posture (11/12/19) Weakness (11/12/19) Physical Therapy Treatment Note PT-OP-A Visit Information Start: 10/29/19 11:20 Freq: Status: Active Protocol: Document 11/12/19 09:11 [facility] (Rec: 11/12/19 09:46 [facility] [id number]) Out-Patient Physical Therapy Visit Information Visit Information Visit Type Treatment Note Visit Start Time 09:07 Visit Stop Time 10:00 Total Visit Minutes 53 Visit Number 03/04 Number of TRASH COLLECTOR TRUCK DRIVER Visits 0 PT-OP-B Current Condition Start: 10/29/19 11:20 Freq: Status: Active Protocol: Document 10/29/19 11:22 [facility] (Rec: 10/29/19 12:07 [facility] [id number]) Current Condition History of Current Condition Onset Date knee pain about 3 months ago Current Complaints L knee pain & L LB & hip pain History of Current Condition Pt reports she has history of LBP that she did PT for and she later found out 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 Pt started recently to have L knee pain and was told she needs a TKA. She cannot have sx until her is done with cancer treatment in 4 moths hopefully . She had an infection in her L knee that idd not do much. She gets a sharp LBP and has a loss of strength where she feels like she is going to fall in L LBP and L hip. She has not been walking recently but she has been really active with grandkids. Pt reprots the L knee pain has just gradually started and started burning and disturbing sleep at night. Prior Treatments and Tests PT for LBP, coritzone injection Developmental History Developmental History Pt has hx of endrometrial CA & did D&C &considered CA free, LBP, L hip pain Treatment Goals Patient/Caregiver Goals Keep muscles strong prior to TKA. PT-OP-C Subjective Start: 10/29/19 11:20 Freq: Status: Active Protocol: Document 11/12/19 09:11 [facility] (Rec: 11/12/19 09:46 [facility] [id number]) OP-PT Subjective Patient Comments Patient Comments pt reports her knee has not been bothering her too much but yesterday she played cards for a long time and stood up and had pain in back and down into buttock and post L leg. Better this AM PT-OP-F Manual Assessment Start: 10/29/19 11:20 Freq: Status: Active Protocol: Document 10/29/19 11:22 [facility] (Rec: 10/29/19 12:07 [facility] [id number]) Manual Assessments Joint Mobility Assessment Joint Mobility Assessment L Iliac crest higher & greater trocher equal; compensated supinated feet B, B femurs IR, R tibia IR, L tibia ER; knee bend goes toward med of 1st toe PT-OP-G Mobility & Gait Start: 10/29/19 11:20 Freq: Status: Active Protocol: Document 10/29/19 11:22 [facility] (Rec: 10/29/19 12:07 [facility] [id number]) OP Gait Assessment Comments Gait Comments Dec wt accpetance on LLE with lat lean over LLE with stance on LLE, dec push off B L>R PT-OP-J Posture/Palpation/Skin Start: 10/29/19 11:20 Freq: Status: Active Protocol: Document 10/29/19 11:22 [facility] (Rec: 10/29/19 12:07 [facility] [id number]) Posture Evaluation Meenakshi Postural Classification System Meenakshi Postural Classifications Vertical/Posterior Lumbar Protective Mechanism Left AP 1 Lumbar Protective Mechanism Right AP 2 Lumbar Protective Mechanism Left PA 0 Lumbar Protective Mechanism Right PA 2 PT-OP-K Range of Motion Start: 10/29/19 11:20 Freq: Status: Active Protocol: Document 10/29/19 11:22 [facility] (Rec: 10/29/19 12:07 [facility] [id number]) Knee Goniometric Range of Motion Knee Right Flexion Active (degrees) 129 Extension Active (degrees) 0 Left Flexion Active (degrees) 124 Extension Active (degrees) 5 PT-OP-L Special Tests Start: 10/29/19 11:20 Freq: Status: Active Protocol: Document 10/29/19 11:22 [facility] (Rec: 10/29/19 12:07 [facility] [id number]) Special Tests Lumbar Spine Special Tests rain test Test Results mild quad tightness Straight Leg Raise Test Results mild HS tightness B PT-OP-M Strength Start: 10/29/19 11:20 Freq: Status: Active Protocol: Document 10/29/19 11:22 [facility] (Rec: 10/29/19 12:07 [facility] [id number]) Hip Strength Hip Manual Muscle Testing Right Flexion (L2) 4+ Good+ Extension (S1) 4- Good- Abduction 4- Good- Adduction 4+ Good+ External Rotation 3+ Fair+ Internal Rotation 5 Normal Left Flexion (L2) 4- Good- Extension (S1) 4- Good- Abduction 4- Good- Adduction 3 Fair External Rotation 3+ Fair+ Internal Rotation 3+ Fair+ Knee Strength Knee Manual Muscle Testing Left Flexion (S2) 5 Normal Extension (L3) 4+ Good+ Right Flexion (S2) 5 Normal Extension (L3) 5 Normal Ankle/Foot Strength Ankle and Foot Manual Muscle Testing Right Dorsiflexion (L4) 5 Normal Plantarflexion (S1) 5 Normal Left Dorsiflexion (L4) 5 Normal Plantarflexion (S1) 5 Normal Comments tested PF seated B PT-OP-Q Treatments Start: 10/29/19 11:20 Freq: Status: Active Protocol: Document 11/12/19 09:11 [facility] (Rec: 11/12/19 09:46 [facility] [id number]) Therapeutic Exercises Supine Exercises 6 Supine Exercise Name SLR focus on core Side bilateral Reps/Minutes 10 5 Supine Exercise Name single leg isometric flex for abdomenal engagmetn Side bilateral Reps/Minutes 15 sec 4 Supine Exercise Name bridge Side bilateral Reps/Minutes 10 Comments small range w/pelvic tilt 3 Supine Exercise Name LTR Side bilateral Reps/Minutes 10 Comments focus on segmental stability 2 Supine Exercise Name piriformis Side bilateral Reps/Minutes 30 sec Sidelying Exercises 3 Sidelying Exercise Name clamshell Side bilateral Reps/Minutes 10 2 Sidelying Exercise Name hip abd Side bilateral Reps/Minutes 10 Standing Exercises 4 Standing Exercise Name squat Side bilateral Reps/Minutes 15 Comments over chair 3 Standing Exercise Name lunge Side bilateral Reps/Minutes 10 Comments counter balance Manual Therapy Treatment Soft Tissue Mobilization 4 Body Location VL Mobilization Type Rolling,Strumming Comments 1.strumming on lat border 2. circumfrential MFR PT-OP-R Modalities Start: 10/29/19 11:20 Freq: Status: Active Protocol: Document 11/12/19 09:11 [facility] (Rec: 11/12/19 09:46 [facility] [id number]) Hot Pack/Cold Pack Treatment Hot Pack Location lumbar & L knee Patient Position Hooklying Treatment Duration (minutes) 15 PT-OP-T Assessment and Plan Start: 10/29/19 11:20 Freq: Status: Active Protocol: Document 11/12/19 09:11 [facility] (Rec: 11/12/19 09:46 [facility] [id number]) Physical Therapy Assessment Goals Three Short Term Goal (STG) Pt will present with good standing and sitting posture without cueing. STG Duration 11/29/19 Long-Term Goal (LTG) Pt will have improved gait with demonstrating improved push off B in order to dec instances of L knee and hip pain. LTG Duration 12/30/19 Two Brine Maker Goal (LTG) Pt will be able to do lateral and twisting motions without pain in order to allow her to do typical kitchen movements and paly with grandkids without pain. LTG Duration 12/30/19 One Impairment strength Short Term Goal (STG) Pt will be indep with HEP. STG Duration 11/29/19 Long-Term Goal (LTG) Pt will ahve 5/5 LE strength and 4/5 LPM and VCT in order to demonstrate improved postural stability and core stabilityt o allow her to do typical activities in kitchen and with grandkids without inc pain. LTG Duration 12/30/19 Assessment Summary Assessment Pt required much less cueing today with exercises. Improved lunge and squat form and required cueing to stay in comfortable range with all exercises for back. Physical Therapy Plan Frequency and Duration Frequency of Treatment 2x/Week Duration of Treatment 2 months Plan of Care Start Date 10/29/19 Plan of Care End Date 12/30/19 Therapeutic Interventions Therapeutic Interventions Aquatic Therapy,Balance Training,Gait Training,Home Exercise Program,Joint Mobilizations,Manual Therapy, Neuromuscular Re-education, Patient/Caregiver Education, Self-Care/Home Management,Soft Tissue Mobilization,Taping, Therapeutic Activities, Therapeutic Exercises Modalities Cold Pack/Ice Massage,Electric Stimulation,Hot Packs, Infrared Therapy,Iontophoresis ,Ultrasound Next Visit Focus/Plan Next Note Type Treatment Note Next Visit Plan review HEP as needed, manual therapy to L knee and hip
--- NOTE | 2019-11-30 09:45 | PT.OTN ---
Current Diagnoses Pain in left hip (11/30/19) Pain in left knee (11/30/19) Low back pain (11/30/19) Abnormal posture (11/30/19) Weakness (11/30/19) Physical Therapy Treatment Note PT-OP-A Visit Information Start: 10/29/19 11:20 Freq: Status: Active Protocol: Document 11/30/19 08:58 [facility] (Rec: 11/30/19 09:45 [facility] [id number]) Out-Patient Physical Therapy Visit Information Visit Information Visit Type Treatment Note Visit Start Time 09:00 Visit Stop Time 09:55 Total Visit Minutes 55 Visit Number 5/ Number of PULMONARY SPECIALIST Visits 0 PT-OP-B Current Condition Start: 10/29/19 11:20 Freq: Status: Active Protocol: Document 10/29/19 11:22 [facility] (Rec: 10/29/19 12:07 [facility] [id number]) Current Condition History of Current Condition Onset Date knee pain about 3 months ago Current Complaints L knee pain & L LB & hip pain History of Current Condition Pt reports she has history of LBP that she did PT for and she later found out 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 Pt started recently to have L knee pain and was told she needs a TKA. She cannot have sx until her is done with cancer treatment in 4 moths hopefully . She had an infection in her L knee that idd not do much. She gets a sharp LBP and has a loss of strength where she feels like she is going to fall in L LBP and L hip. She has not been walking recently but she has been really active with grandkids. Pt reprots the L knee pain has just gradually started and started burning and disturbing sleep at night. Prior Treatments and Tests PT for LBP, coritzone injection Developmental History Developmental History Pt has hx of endrometrial CA & did D&C &considered CA free, LBP, L hip pain Treatment Goals Patient/Caregiver Goals Keep muscles strong prior to TKA. PT-OP-C Subjective Start: 10/29/19 11:20 Freq: Status: Active Protocol: Document 11/30/19 08:58 [facility] (Rec: 11/30/19 09:45 [facility] [id number]) OP-PT Subjective Patient Comments Patient Comments Pt reports she notices if she sits extended sciatic pain on L side is the wrost. COmpliance with HEP a few times a week. Knee doing okay PT-OP-F Manual Assessment Start: 10/29/19 11:20 Freq: Status: Active Protocol: Document 10/29/19 11:22 [facility] (Rec: 10/29/19 12:07 [facility] [id number]) Manual Assessments Joint Mobility Assessment Joint Mobility Assessment L Iliac crest higher & greater trocher equal; compensated supinated feet B, B femurs IR, R tibia IR, L tibia ER; knee bend goes toward med of 1st toe PT-OP-G Mobility & Gait Start: 10/29/19 11:20 Freq: Status: Active Protocol: Document 10/29/19 11:22 [facility] (Rec: 10/29/19 12:07 [facility] [id number]) OP Gait Assessment Comments Gait Comments Dec wt accpetance on LLE with lat lean over LLE with stance on LLE, dec push off B L>R PT-OP-J Posture/Palpation/Skin Start: 10/29/19 11:20 Freq: Status: Active Protocol: Document 10/29/19 11:22 [facility] (Rec: 10/29/19 12:07 [facility] [id number]) Posture Evaluation Meenakshi Postural Classification System Meenakshi Postural Classifications Vertical/Posterior Lumbar Protective Mechanism Left AP 1 Lumbar Protective Mechanism Right AP 2 Lumbar Protective Mechanism Left PA 0 Lumbar Protective Mechanism Right PA 2 PT-OP-K Range of Motion Start: 10/29/19 11:20 Freq: Status: Active Protocol: Document 10/29/19 11:22 [facility] (Rec: 10/29/19 12:07 [facility] [id number]) Knee Goniometric Range of Motion Knee Right Flexion Active (degrees) 129 Extension Active (degrees) 0 Left Flexion Active (degrees) 124 Extension Active (degrees) 5 PT-OP-L Special Tests Start: 10/29/19 11:20 Freq: Status: Active Protocol: Document 10/29/19 11:22 [facility] (Rec: 10/29/19 12:07 [facility] [id number]) Special Tests Lumbar Spine Special Tests rain test Test Results mild quad tightness Straight Leg Raise Test Results mild HS tightness B PT-OP-M Strength Start: 10/29/19 11:20 Freq: Status: Active Protocol: Document 10/29/19 11:22 [facility] (Rec: 10/29/19 12:07 [facility] [id number]) Hip Strength Hip Manual Muscle Testing Right Flexion (L2) 4+ Good+ Extension (S1) 4- Good- Abduction 4- Good- Adduction 4+ Good+ External Rotation 3+ Fair+ Internal Rotation 5 Normal Left Flexion (L2) 4- Good- Extension (S1) 4- Good- Abduction 4- Good- Adduction 3 Fair External Rotation 3+ Fair+ Internal Rotation 3+ Fair+ Knee Strength Knee Manual Muscle Testing Left Flexion (S2) 5 Normal Extension (L3) 4+ Good+ Right Flexion (S2) 5 Normal Extension (L3) 5 Normal Ankle/Foot Strength Ankle and Foot Manual Muscle Testing Right Dorsiflexion (L4) 5 Normal Plantarflexion (S1) 5 Normal Left Dorsiflexion (L4) 5 Normal Plantarflexion (S1) 5 Normal Comments tested PF seated B PT-OP-Q Treatments Start: 10/29/19 11:20 Freq: Status: Active Protocol: Document 11/30/19 08:58 [facility] (Rec: 11/30/19 09:45 [facility] [id number]) Therapeutic Exercises Supine Exercises 6 Supine Exercise Name SLR focus on core Side bilateral Reps/Minutes 10 5 Supine Exercise Name single leg isometric flex for abdomenal engagmetn Side bilateral Reps/Minutes 15 sec 4 Supine Exercise Name bridge Side bilateral Reps/Minutes 10 Comments small range w/pelvic tilt 3 Supine Exercise Name LTR Side bilateral Reps/Minutes 5 Comments focus on segmental stability 2 Supine Exercise Name piriformis Side bilateral Reps/Minutes 30 sec Sidelying Exercises 3 Sidelying Exercise Name clamshell Side bilateral Reps/Minutes 10 2 Sidelying Exercise Name hip abd Side bilateral Reps/Minutes 10 Standing Exercises 4 Standing Exercise Name squat Side bilateral Reps/Minutes 15 Comments at counter 3 Standing Exercise Name lunge Side bilateral Reps/Minutes 15 Comments counter balance Manual Therapy Treatment Soft Tissue Mobilization 2 Body Location L calf Mobilization Type Rolling,Strumming 1 Body Location L thigh circumfrential Mobilization Type Myofascial Release PT-OP-R Modalities Start: 10/29/19 11:20 Freq: Status: Active Protocol: Document 11/30/19 08:58 [facility] (Rec: 11/30/19 09:45 [facility] [id number]) Hot Pack/Cold Pack Treatment Hot Pack Location lumbar & L knee Patient Position Hooklying Treatment Duration (minutes) 15 PT-OP-T Assessment and Plan Start: 10/29/19 11:20 Freq: Status: Active Protocol: Document 11/30/19 08:58 [facility] (Rec: 11/30/19 09:45 [facility] [id number]) Physical Therapy Assessment Goals Three Short Term Goal (STG) Pt will present with good standing and sitting posture without cueing. STG Duration 11/29/19 Radio Performer Goal (LTG) Pt will have improved gait with demonstrating improved push off B in order to dec instances of L knee and hip pain. LTG Duration 12/30/19 Two Radio Performer Goal (LTG) Pt will be able to do lateral and twisting motions without pain in order to allow her to do typical kitchen movements and paly with grandkids without pain. LTG Duration 12/30/19 One Impairment strength Short Term Goal (STG) Pt will be indep with HEP. STG Duration 11/29/19 Radio Performer Goal (LTG) Pt will ahve 5/5 LE strength and 4/5 LPM and VCT in order to demonstrate improved postural stability and core stabilityt o allow her to do typical activities in kitchen and with grandkids without inc pain. LTG Duration 12/30/19 Assessment Summary Assessment Pt required cueing for lunge, LTR, & isometric hip flex for form. She is overall doign better with exercise performance Physical Therapy Plan Frequency and Duration Frequency of Treatment 2x/Week Duration of Treatment 2 months Plan of Care Start Date 10/29/19 Plan of Care End Date 12/30/19 Next Visit Focus/Plan Next Note Type Treatment Note Next Visit Plan review HEP as needed, manual therapy to L knee and hip; assess hip motions
--- NOTE | 2019-12-03 13:00 | PT.OTN ---
Current Diagnoses Pain in left hip (12/03/19) Pain in left knee (12/03/19) Low back pain (12/03/19) Abnormal posture (12/03/19) Weakness (12/03/19) Physical Therapy Treatment Note PT-OP-A Visit Information Start: 10/29/19 11:20 Freq: Status: Active Protocol: Document 12/03/19 10:33 [facility] (Rec: 12/03/19 13:00 [facility] [id number]) Out-Patient Physical Therapy Visit Information Visit Information Visit Type Treatment Note Visit Start Time 10:34 Visit Stop Time 11:28 Total Visit Minutes 54 Visit Number 6 Number of ELECTRICAL HARDWARE ENGINEER Visits 0 PT-OP-B Current Condition Start: 10/29/19 11:20 Freq: Status: Active Protocol: Document 10/29/19 11:22 [facility] (Rec: 10/29/19 12:07 [facility] [id number]) Current Condition History of Current Condition Onset Date knee pain about 3 months ago Current Complaints L knee pain & L LB & hip pain History of Current Condition Pt reports she has history of LBP that she did PT for and she later found out 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 Pt started recently to have L knee pain and was told she needs a TKA. She cannot have sx until her is done with cancer treatment in 4 moths hopefully . She had an infection in her L knee that idd not do much. She gets a sharp LBP and has a loss of strength where she feels like she is going to fall in L LBP and L hip. She has not been walking recently but she has been really active with grandkids. Pt reprots the L knee pain has just gradually started and started burning and disturbing sleep at night. Prior Treatments and Tests PT for LBP, coritzone injection Developmental History Developmental History Pt has hx of endrometrial CA & did D&C &considered CA free, LBP, L hip pain Treatment Goals Patient/Caregiver Goals Keep muscles strong prior to TKA. PT-OP-C Subjective Start: 10/29/19 11:20 Freq: Status: Active Protocol: Document 12/03/19 10:33 [facility] (Rec: 12/03/19 13:00 [facility] [id number]) OP-PT Subjective Patient Comments Patient Comments Pt reports knee has not been feeling too bad. when she pivoted this AM she felt it. Pt reports another bad episode with pain down her leg with her card game. seeing MD today PT-OP-F Manual Assessment Start: 10/29/19 11:20 Freq: Status: Active Protocol: Document 10/29/19 11:22 [facility] (Rec: 10/29/19 12:07 [facility] [id number]) Manual Assessments Joint Mobility Assessment Joint Mobility Assessment L Iliac crest higher & greater trocher equal; compensated supinated feet B, B femurs IR, R tibia IR, L tibia ER; knee bend goes toward med of 1st toe PT-OP-G Mobility & Gait Start: 10/29/19 11:20 Freq: Status: Active Protocol: Document 10/29/19 11:22 [facility] (Rec: 10/29/19 12:07 [facility] [id number]) OP Gait Assessment Comments Gait Comments Dec wt accpetance on LLE with lat lean over LLE with stance on LLE, dec push off B L>R PT-OP-J Posture/Palpation/Skin Start: 10/29/19 11:20 Freq: Status: Active Protocol: Document 10/29/19 11:22 [facility] (Rec: 10/29/19 12:07 [facility] [id number]) Posture Evaluation Meenakshi Postural Classification System Meenakshi Postural Classifications Vertical/Posterior Lumbar Protective Mechanism Left AP 1 Lumbar Protective Mechanism Right AP 2 Lumbar Protective Mechanism Left PA 0 Lumbar Protective Mechanism Right PA 2 PT-OP-K Range of Motion Start: 10/29/19 11:20 Freq: Status: Active Protocol: Document 10/29/19 11:22 [facility] (Rec: 10/29/19 12:07 [facility] [id number]) Knee Goniometric Range of Motion Knee Right Flexion Active (degrees) 129 Extension Active (degrees) 0 Left Flexion Active (degrees) 124 Extension Active (degrees) 5 PT-OP-L Special Tests Start: 10/29/19 11:20 Freq: Status: Active Protocol: Document 10/29/19 11:22 [facility] (Rec: 10/29/19 12:07 [facility] [id number]) Special Tests Lumbar Spine Special Tests rain test Test Results mild quad tightness Straight Leg Raise Test Results mild HS tightness B PT-OP-M Strength Start: 10/29/19 11:20 Freq: Status: Active Protocol: Document 10/29/19 11:22 [facility] (Rec: 10/29/19 12:07 [facility] [id number]) Hip Strength Hip Manual Muscle Testing Right Flexion (L2) 4+ Good+ Extension (S1) 4- Good- Abduction 4- Good- Adduction 4+ Good+ External Rotation 3+ Fair+ Internal Rotation 5 Normal Left Flexion (L2) 4- Good- Extension (S1) 4- Good- Abduction 4- Good- Adduction 3 Fair External Rotation 3+ Fair+ Internal Rotation 3+ Fair+ Knee Strength Knee Manual Muscle Testing Left Flexion (S2) 5 Normal Extension (L3) 4+ Good+ Right Flexion (S2) 5 Normal Extension (L3) 5 Normal Ankle/Foot Strength Ankle and Foot Manual Muscle Testing Right Dorsiflexion (L4) 5 Normal Plantarflexion (S1) 5 Normal Left Dorsiflexion (L4) 5 Normal Plantarflexion (S1) 5 Normal Comments tested PF seated B PT-OP-Q Treatments Start: 10/29/19 11:20 Freq: Status: Active Protocol: Document 12/03/19 10:33 [facility] (Rec: 12/03/19 13:00 [facility] [id number]) Therapeutic Exercises Supine Exercises 5 Supine Exercise Name single leg isometric flex for abdomenal engagmetn Side bilateral Reps/Minutes 15 secx2 3 Supine Exercise Name LTR Side bilateral Reps/Minutes 5 Comments focus on segmental stability 2 Supine Exercise Name piriformis Side bilateral Reps/Minutes 30 sec Standing Exercises 3 Standing Exercise Name lunge Side bilateral Reps/Minutes 15 Comments counter balance Manual Therapy Treatment Soft Tissue Mobilization 5 Body Location lower leg & thigh Mobilization Type Myofascial Release Intensity/Depth Superficial Comments circumfrential Joint Mobilizations 3 Joint hip L Direction inf, post & inf/post FM PT-OP-R Modalities Start: 10/29/19 11:20 Freq: Status: Active Protocol: Document 12/03/19 10:33 [facility] (Rec: 12/03/19 13:00 [facility] [id number]) Hot Pack/Cold Pack Treatment Hot Pack Location lumbar & L knee Patient Position Hooklying Treatment Duration (minutes) 15 PT-OP-T Assessment and Plan Start: 10/29/19 11:20 Freq: Status: Active Protocol: Document 12/03/19 10:33 [facility] (Rec: 12/03/19 13:00 [facility] [id number]) Physical Therapy Assessment Goals Three Short Term Goal (STG) Pt will present with good standing and sitting posture without cueing. STG Duration 11/29/19 Burglar Alarm Mechanic Goal (LTG) Pt will have improved gait with demonstrating improved push off B in order to dec instances of L knee and hip pain. LTG Duration 12/30/19 Two Snf Goal (LTG) Pt will be able to do lateral and twisting motions without pain in order to allow her to do typical kitchen movements and paly with grandkids without pain. LTG Duration 12/30/19 One Impairment strength Short Term Goal (STG) Pt will be indep with HEP. STG Duration 11/29/19 Snf Goal (LTG) Pt will ahve 5/5 LE strength and 4/5 LPM and VCT in order to demonstrate improved postural stability and core stabilityt o allow her to do typical activities in kitchen and with grandkids without inc pain. LTG Duration 12/30/19 Assessment Summary Assessment Pt had improvement with ability to IR without knee pain and inc range after treatment. Working on rotational mvoments to dec pain for pt while doing pivoting activites. She appears to have dec overall ROM of hip and fascia of lower leg and this torsion may be creating pain with pivoting for pt. Physical Therapy Plan Frequency and Duration Frequency of Treatment 2x/Week Duration of Treatment 2 months Plan of Care Start Date 10/29/19 Plan of Care End Date 12/30/19 Next Visit Focus/Plan Next Note Type Treatment Note Next Visit Plan review HEP as needed, manual therapy to L knee and hip; assess hip motions
--- NOTE | 2019-12-07 12:09 | PT.OTRE ---
Current Diagnoses Pain in left hip (12/07/19) Pain in left knee (12/07/19) Low back pain (12/07/19) Difficulty in walking, not elsewhere classified (12/07/19) Abnormal posture (12/07/19) Weakness (12/07/19) Past Medical History (Last Updated 05/01/18 @ 17:40 by Nichelle Hernandez, PT) Neck pain (Acute) Surgical History (Last Reviewed 05/01/18 @ 17:40 by Nichelle Hernandez, PT) Status post breast biopsy Status post delivery Status post delivery Status post hysterectomy (07/07/12) Visit Care Team Role Provider Type Nichelle Roy MD Attending Provider Physician Primary Care Provider Specialty: [facility] Address: [address] [place] [address], [facility] Email: [email or web address] Physical Therapy Re-Evaluation PT-OP-A Visit Information Start: 10/29/19 11:20 Freq: Status: Active Protocol: Document 12/07/19 09:08 [facility] (Rec: 12/07/19 10:34 [facility] [id number]) Out-Patient Physical Therapy Visit Information Visit Information Visit Type Re-Evaluation Visit Note 12/04 Visit Start Time 09:05 Visit Stop Time 10:00 Total Visit Minutes 55 Visit Number 7 Number of DOPER Visits 0 PT-OP-B Current Condition Start: 10/29/19 11:20 Freq: Status: Active Protocol: Document 12/07/19 09:08 [facility] (Rec: 12/07/19 10:34 [facility] [id number]) Current Condition History of Current Condition Onset Date knee pain about 3 months ago;3 weeks sciatic pain Current Complaints L knee pain & L LB & hip pain History of Current Condition LBP/hip eval 12/07-Pt has history of LBP which she improved with PT but still had some sharp pains after sitting. After sitting playing cards, pt stood and had pain down leg that was excruciating . 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 Pt started recently to have L knee pain and was told she needs a TKA. She cannot have sx until her is done with cancer treatment in 4 moths hopefully . She had an infection in her L knee that idd not do much. She gets a sharp LBP and has a loss of strength where she feels like she is going to fall in L LBP and L hip. She has not been walking recently but she has been really active with grandkids. Pt reprots the L knee pain has just gradually started and started burning and disturbing sleep at night. Prior Treatments and Tests PT for LBP, coritzone injection PT-OP-C Subjective Start: 10/29/19 11:20 Freq: Status: Active Protocol: Document 12/07/19 09:08 [facility] (Rec: 12/07/19 10:34 [facility] [id number]) OP-PT Subjective Patient Comments Patient Comments Pt reports last session helped her L hip feel better and she walked 3 times and L knee is a little swollen OP-PT Pain Assessment Location Left Back Pain Location Details L back, L hip & L leg Intensity 10 Scale Used Numeric (1 - 10) Description Sharp Frequency Intermittent Pain Duration seconds Pain Aggravating Factors Sitting Other Pain Aggravating Factors standing up after sitting long , walking dog Pain Alleviating Factors Heat Other Pain Alleviating Factors movement PT-OP-F Manual Assessment Start: 10/29/19 11:20 Freq: Status: Active Protocol: Document 12/07/19 09:08 [facility] (Rec: 12/07/19 10:34 [facility] [id number]) Manual Assessments Soft Tissue Assessment Soft Tissue Mobility Assessment tightness L iliacus, L glutes PT-OP-G Mobility & Gait Start: 10/29/19 11:20 Freq: Status: Active Protocol: Document 12/07/19 09:08 [facility] (Rec: 12/07/19 10:34 [facility] [id number]) OP Gait Assessment Comments Gait Comments Dec wt accpetance on LLE with lat lean over LLE with stance on LLE, dec push off B L>R; overall inc rotational push off PT-OP-J Posture/Palpation/Skin Start: 10/29/19 11:20 Freq: Status: Active Protocol: Document 12/07/19 09:08 [facility] (Rec: 12/07/19 10:34 [facility] [id number]) Posture Evaluation Meenakshi Postural Classification System [facility] Postural Classifications Vertical/Posterior Vertebral Compression Test 2 Elbow Flexion Test 0 Lumbar Protective Mechanism Left AP 1 Lumbar Protective Mechanism Right AP 3 Lumbar Protective Mechanism Left PA 1 Lumbar Protective Mechanism Right PA 2 PT-OP-K Range of Motion Start: 10/29/19 11:20 Freq: Status: Active Protocol: Document 10/29/19 11:22 [facility] (Rec: 10/29/19 12:07 [facility] [id number]) Knee Goniometric Range of Motion Knee Measured in Degrees Right Flexion Active (degrees) 129 Extension Active (degrees) 0 Left Flexion Active (degrees) 124 Extension Active (degrees) 5 PT-OP-L Special Tests Start: 10/29/19 11:20 Freq: Status: Active Protocol: Document 12/07/19 09:08 [facility] (Rec: 12/07/19 10:34 [facility] [id number]) Special Tests Lumbar Spine Special Tests Slump Test Results L positive Straight Leg Raise Test Results L positive PT-OP-M Strength Start: 10/29/19 11:20 Freq: Status: Active Protocol: Document 12/07/19 09:08 [facility] (Rec: 12/07/19 10:34 [facility] [id number]) Hip Strength Hip Manual Muscle Testing Right Flexion (L2) 4+ Good+ Extension (S1) 4- Good- Abduction 4 Good Adduction 5 Normal External Rotation 4- Good- Internal Rotation 5 Normal Comments pain in LB w/ext Left Flexion (L2) 4 Good Extension (S1) 4- Good- Abduction 4- Good- Adduction 4 Good External Rotation 3+ Fair+ Internal Rotation 4+ Good+ Comments WNL knee & ankle B Knee Strength Knee Manual Muscle Testing Left Flexion (S2) 5 Normal Extension (L3) 4+ Good+ Right Flexion (S2) 5 Normal Extension (L3) 5 Normal Ankle/Foot Strength Ankle and Foot Manual Muscle Testing Right Dorsiflexion (L4) 5 Normal Plantarflexion (S1) 5 Normal Left Dorsiflexion (L4) 5 Normal Plantarflexion (S1) 5 Normal Comments tested PF seated B PT-OP-Q Treatments Start: 10/29/19 11:20 Freq: Status: Active Protocol: Document 12/07/19 09:08 [facility] (Rec: 12/07/19 10:34 [facility] [id number]) Therapeutic Exercises Supine Exercises 1 Supine Exercise Name piriformis stretch Side bilateral Reps/Minutes 30 sec Manual Therapy Treatment Soft Tissue Mobilization 4 Body Location ES & QL Mobilization Type Rolling,Strumming Intensity/Depth Moderate Body Position Prone 3 Body Location piriformis Mobilization Type Rolling Intensity/Depth Moderate Body Position Prone PT-OP-R Modalities Start: 10/29/19 11:20 Freq: Status: Active Protocol: Document 12/07/19 09:08 [facility] (Rec: 12/07/19 10:34 [facility] [id number]) Hot Pack/Cold Pack Treatment Hot Pack Location lumbar & L knee Patient Position Hooklying Treatment Duration (minutes) 15 PT-OP-T Assessment and Plan Start: 10/29/19 11:20 Freq: Status: Active Protocol: Document 12/07/19 09:08 [facility] (Rec: 12/07/19 10:34 [facility] [id number]) Physical Therapy Assessment Goals Four Cylinder Inspector Goal (LTG) Pt will be able to play cards with friends in sitting without inc pain greater than 2/10 LTG Duration 02/05/20 Three Short Term Goal (STG) Pt will present with good standing and sitting posture without cueing. STG Duration 12/14/19 Mcfp Goal (LTG) Pt will have improved gait with demonstrating improved push off B in order to dec instances of L knee and hip pain. LTG Duration 01/28/20 Two Cylinder Inspector Goal (LTG) Pt will be able to do lateral and twisting motions without pain in order to allow her to do typical kitchen movements and paly with grandkids without pain. LTG Duration 01/28/20 One Impairment strength Short Term Goal (STG) Pt will be indep with HEP. STG Duration achieved progerssing as needed Cylinder Inspector Goal (LTG) Pt will ahve 5/5 LE strength and 4/5 LPM and VCT in order to demonstrate improved postural stability and core stabilityt o allow her to do typical activities in kitchen and with grandkids without inc pain. LTG Duration 01/28/20 Assessment Summary Assessment Pt is improving with overall LE strength with progress towards improvement of L knee pain, but does still have deficits especially with long walks and pivoting. She was assessed today for L LBP and L hip pain with radicular L post leg pain when she sits for extended time. She would benefit from PT to address lumbopelvic and hip/knee movement dysfunctions that likely contribute to this pain . She has dec core stability & hip strength which likely contributes to this along with impaired movement pattern. Physical Therapy Plan Frequency and Duration Frequency of Treatment 2x/Week Duration of Treatment 2 months Plan of Care Start Date 12/07/19 Plan of Care End Date 02/05/20 Therapeutic Interventions Therapeutic Interventions Aquatic Therapy,Balance Training,Gait Training,Home Exercise Program,Joint Mobilizations,Manual Therapy, Neuromuscular Re-education, Patient/Caregiver Education, Self-Care/Home Management,Soft Tissue Mobilization,Taping, Therapeutic Activities, Therapeutic Exercises Modalities Cold Pack/Ice Massage,Electric Stimulation,Hot Packs, Infrared Therapy,Iontophoresis ,Ultrasound Next Visit Focus/Plan Next Note Type Treatment Note Next Visit Plan review HEP as needed, manual therapy to L knee and hip; assess hip motions, PNF patterns & lumbar spine
--- NOTE | 2019-12-07 12:09 | PT.OPPOC ---
Physical, Occupational & Speech Therapy At [facility] Current Diagnoses Pain in left hip (12/07/19) Pain in left knee (12/07/19) Low back pain (12/07/19) Difficulty in walking, not elsewhere classified (12/07/19) Abnormal posture (12/07/19) Weakness (12/07/19) Visit Care Team Role Provider Type Nichelle Roy MD Attending Provider Physician Primary Care Provider Specialty: [facility] Address: [address] [place] [address], [place], [place], [facility] Email: [email or web address] Plan Of Care PT-OP-T Assessment and Plan Start: 10/29/19 11:20 Freq: Status: Active Protocol: Document 12/07/19 09:08 [facility] (Rec: 12/07/19 10:34 [facility] [id number]) Physical Therapy Assessment Goals Four Half-Way Goal (LTG) Pt will be able to play cards with friends in sitting without inc pain greater than 2/10 LTG Duration 02/05/20 Three Short Term Goal (STG) Pt will present with good standing and sitting posture without cueing. STG Duration 12/14/19 Cnc Applications Engineer Goal (LTG) Pt will have improved gait with demonstrating improved push off B in order to dec instances of L knee and hip pain. LTG Duration 01/28/20 Two Cnc Applications Engineer Goal (LTG) Pt will be able to do lateral and twisting motions without pain in order to allow her to do typical kitchen movements and paly with grandkids without pain. LTG Duration 01/28/20 One Impairment strength Short Term Goal (STG) Pt will be indep with HEP. STG Duration achieved progerssing as needed Cnc Applications Engineer Goal (LTG) Pt will ahve 5/5 LE strength and 4/5 LPM and VCT in order to demonstrate improved postural stability and core stabilityt o allow her to do typical activities in kitchen and with grandkids without inc pain. LTG Duration 01/28/20 Assessment Summary Assessment Pt is improving with overall LE strength with progress towards improvement of L knee pain, but does still have deficits especially with long walks and pivoting. She was assessed today for L LBP and L hip pain with radicular L post leg pain when she sits for extended time. She would benefit from PT to address lumbopelvic and hip/knee movement dysfunctions that likely contribute to this pain . She has dec core stability & hip strength which likely contributes to this along with impaired movement pattern. Physical Therapy Plan Frequency and Duration Frequency of Treatment 2x/Week Duration of Treatment 2 months Plan of Care Start Date 12/07/19 Plan of Care End Date 02/05/20 Therapeutic Interventions Therapeutic Interventions Aquatic Therapy,Balance Training,Gait Training,Home Exercise Program,Joint Mobilizations,Manual Therapy, Neuromuscular Re-education, Patient/Caregiver Education, Self-Care/Home Management,Soft Tissue Mobilization,Taping, Therapeutic Activities, Therapeutic Exercises Modalities Cold Pack/Ice Massage,Electric Stimulation,Hot Packs, Infrared Therapy,Iontophoresis ,Ultrasound Next Visit Focus/Plan Next Note Type Treatment Note Next Visit Plan review HEP as needed, manual therapy to L knee and hip; assess hip motions, PNF patterns & lumbar spine Plan of Care Dates Plan of Care Start Date 12/07/19 Plan of Care End Date 02/05/20 Electronically Signed by: Nichelle Hernandez, PT 12/07/19 7201 Please Sign and Return: I have reviewed this Plan of Care and certify that the skilled therapy services above are required to meet the patient?s needs. Physician Signature Date Printed Name and Credentials Clinical Instructor Signature Printed Name and Credentials
--- NOTE | 2020-01-05 12:10 | PT.OTN ---
Current Diagnoses Pain in left hip (01/05/20) Pain in left knee (01/05/20) Low back pain (01/05/20) Difficulty in walking, not elsewhere classified (01/05/20) Abnormal posture (01/05/20) Weakness (01/05/20) Physical Therapy Treatment Note PT-OP-A Visit Information Start: 10/29/19 11:20 Freq: Status: Active Protocol: Document 01/05/20 11:34 [facility] (Rec: 01/05/20 11:51 [facility] [id number]) Out-Patient Physical Therapy Visit Information Visit Information Visit Type Treatment Note Visit Note 01/04 Visit Start Time 10:36 Visit Stop Time 11:31 Total Visit Minutes 55 Visit Number 8 Number of METAL BENCH PATTERNMAKER Visits 0 PT-OP-B Current Condition Start: 10/29/19 11:20 Freq: Status: Active Protocol: Document 12/07/19 09:08 [facility] (Rec: 12/07/19 10:34 [facility] [id number]) Current Condition History of Current Condition Onset Date knee pain about 3 months ago;3 weeks sciatic pain Current Complaints L knee pain & L LB & hip pain History of Current Condition LBP/hip eval 12/07-Pt has history of LBP which she improved with PT but still had some sharp pains after sitting. After sitting playing cards, pt stood and had pain down leg that was excruciating . 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 Pt started recently to have L knee pain and was told she needs a TKA. She cannot have sx until her is done with cancer treatment in 4 moths hopefully . She had an infection in her L knee that idd not do much. She gets a sharp LBP and has a loss of strength where she feels like she is going to fall in L LBP and L hip. She has not been walking recently but she has been really active with grandkids. Pt reprots the L knee pain has just gradually started and started burning and disturbing sleep at night. Prior Treatments and Tests PT for LBP, coritzone injection PT-OP-C Subjective Start: 10/29/19 11:20 Freq: Status: Active Protocol: Document 01/05/20 11:34 [facility] (Rec: 01/05/20 11:51 [facility] [id number]) OP-PT Subjective Patient Comments Patient Comments Pt reported she enver had any sharp pain down her leg on LLE while away and was very active helping her mom. Reprots she has had 2 instances since being home that she thinks is d/t playing cards a lot. NOtes she also feels like knee is really stiff first thing in the AM when getting up. PT-OP-F Manual Assessment Start: 10/29/19 11:20 Freq: Status: Active Protocol: Document 12/07/19 09:08 [facility] (Rec: 12/07/19 10:34 [facility] [id number]) Manual Assessments Soft Tissue Assessment Soft Tissue Mobility Assessment tightness L iliacus, L glutes PT-OP-G Mobility & Gait Start: 10/29/19 11:20 Freq: Status: Active Protocol: Document 12/07/19 09:08 [facility] (Rec: 12/07/19 10:34 [facility] [id number]) OP Gait Assessment Comments Gait Comments Dec wt accpetance on LLE with lat lean over LLE with stance on LLE, dec push off B L>R; overall inc rotational push off PT-OP-J Posture/Palpation/Skin Start: 10/29/19 11:20 Freq: Status: Active Protocol: Document 12/07/19 09:08 [facility] (Rec: 12/07/19 10:34 [facility] [id number]) Posture Evaluation [facility] Postural Classification System Meenakshi Postural Classifications Vertical/Posterior Vertebral Compression Test 2 Elbow Flexion Test 0 Lumbar Protective Mechanism Left AP 1 Lumbar Protective Mechanism Right AP 3 Lumbar Protective Mechanism Left PA 1 Lumbar Protective Mechanism Right PA 2 PT-OP-K Range of Motion Start: 10/29/19 11:20 Freq: Status: Active Protocol: Document 10/29/19 11:22 [facility] (Rec: 10/29/19 12:07 [facility] [id number]) Knee Goniometric Range of Motion Knee Right Flexion Active (degrees) 129 Extension Active (degrees) 0 Left Flexion Active (degrees) 124 Extension Active (degrees) 5 PT-OP-L Special Tests Start: 10/29/19 11:20 Freq: Status: Active Protocol: Document 12/07/19 09:08 [facility] (Rec: 12/07/19 10:34 [facility] [id number]) Special Tests Lumbar Spine Special Tests Slump Test Results L positive Straight Leg Raise Test Results L positive PT-OP-M Strength Start: 10/29/19 11:20 Freq: Status: Active Protocol: Document 12/07/19 09:08 [facility] (Rec: 12/07/19 10:34 [facility] [id number]) Hip Strength Hip Manual Muscle Testing Right Flexion (L2) 4+ Good+ Extension (S1) 4- Good- Abduction 4 Good Adduction 5 Normal External Rotation 4- Good- Internal Rotation 5 Normal Comments pain in LB w/ext Left Flexion (L2) 4 Good Extension (S1) 4- Good- Abduction 4- Good- Adduction 4 Good External Rotation 3+ Fair+ Internal Rotation 4+ Good+ Comments WNL knee & ankle B Knee Strength Knee Manual Muscle Testing Left Flexion (S2) 5 Normal Extension (L3) 4+ Good+ Right Flexion (S2) 5 Normal Extension (L3) 5 Normal Ankle/Foot Strength Ankle and Foot Manual Muscle Testing Right Dorsiflexion (L4) 5 Normal Plantarflexion (S1) 5 Normal Left Dorsiflexion (L4) 5 Normal Plantarflexion (S1) 5 Normal Comments tested PF seated B PT-OP-Q Treatments Start: 10/29/19 11:20 Freq: Status: Active Protocol: Document 01/05/20 11:34 [facility] (Rec: 01/05/20 11:51 [facility] [id number]) Therapeutic Exercises Supine Exercises 4 Supine Exercise Name bridge Side bilateral Reps/Minutes 15 Comments focus on core and glute activiation 3 Supine Exercise Name LTR-comfortable range Side bilateral Reps/Minutes 10 Comments focus on segmental stability Standing Exercises 4 Standing Exercise Name squat-changed to sit to stand Reps/Minutes 15 Comments control through motion & core brace Manual Therapy Treatment Soft Tissue Mobilization 3 Body Location piriformis Mobilization Type Rolling Intensity/Depth Moderate Body Position Prone Joint Mobilizations 3 Joint hip L Direction IR FM 2 Joint sacrum Direction caudal & L UPA FM Self-Care/Home Management Treatment Education Other Education pain science and improtance of movement during sedentary activities like card gaames; discussed doing some knee flex & ext prior to getting up in AM PT-OP-R Modalities Start: 10/29/19 11:20 Freq: Status: Active Protocol: Document 01/05/20 11:34 [facility] (Rec: 01/05/20 11:51 [facility] [id number]) Hot Pack/Cold Pack Treatment Hot Pack Location lumbar & L knee Patient Position Hooklying Treatment Duration (minutes) 15 PT-OP-T Assessment and Plan Start: 10/29/19 11:20 Freq: Status: Active Protocol: Document 01/05/20 11:34 [facility] (Rec: 01/05/20 11:51 [facility] [id number]) Physical Therapy Assessment Goals Four Correction Goal (LTG) Pt will be able to play cards with friends in sitting without inc pain greater than 2/10 LTG Duration 02/05/20 Three Short Term Goal (STG) Pt will present with good standing and sitting posture without cueing. STG Duration 12/14/19 Correction Goal (LTG) Pt will have improved gait with demonstrating improved push off B in order to dec instances of L knee and hip pain. LTG Duration 01/28/20 Two Diabetes Trainer Goal (LTG) Pt will be able to do lateral and twisting motions without pain in order to allow her to do typical kitchen movements and paly with grandkids without pain. LTG Duration 01/28/20 One Impairment strength Short Term Goal (STG) Pt will be indep with HEP. STG Duration achieved progerssing as needed Correction Goal (LTG) Pt will ahve 5/5 LE strength and 4/5 LPM and VCT in order to demonstrate improved postural stability and core stabilityt o allow her to do typical activities in kitchen and with grandkids without inc pain. LTG Duration 01/28/20 Assessment Summary Assessment Pt reproted relief with treatment. Improved movement mechanics with ther ex in orde to prevent pain and reviewed form with pt. No pain when completing exercises here. Physical Therapy Plan Frequency and Duration Frequency of Treatment 2x/Week Duration of Treatment 2 months Plan of Care Start Date 12/07/19 Plan of Care End Date 02/05/20 Next Visit Focus/Plan Next Note Type Treatment Note Next Visit Plan cont to work hip and lumbar motion & PNF patterns
--- NOTE | 2020-01-07 13:01 | PT.OTN ---
Current Diagnoses Pain in left hip (01/07/20) Pain in left knee (01/07/20) Low back pain (01/07/20) Difficulty in walking, not elsewhere classified (01/07/20) Abnormal posture (01/07/20) Weakness (01/07/20) Physical Therapy Treatment Note PT-OP-A Visit Information Start: 10/29/19 11:20 Freq: Status: Active Protocol: Document 01/07/20 12:57 [facility] (Rec: 01/07/20 13:01 [facility] [id number]) Out-Patient Physical Therapy Visit Information Visit Information Visit Start Time 09:50 Visit Stop Time 10:45 Total Visit Minutes 55 Visit Number 9 Number of AVIATION PROGRAM MANAGER Visits 0 PT-OP-B Current Condition Start: 10/29/19 11:20 Freq: Status: Active Protocol: Document 12/07/19 09:08 [facility] (Rec: 12/07/19 10:34 [facility] [id number]) Current Condition History of Current Condition Onset Date knee pain about 3 months ago;3 weeks sciatic pain Current Complaints L knee pain & L LB & hip pain History of Current Condition LBP/hip eval 12/07-Pt has history of LBP which she improved with PT but still had some sharp pains after sitting. After sitting playing cards, pt stood and had pain down leg that was excruciating . 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 Pt started recently to have L knee pain and was told she needs a TKA. She cannot have sx until her is done with cancer treatment in 4 moths hopefully . She had an infection in her L knee that idd not do much. She gets a sharp LBP and has a loss of strength where she feels like she is going to fall in L LBP and L hip. She has not been walking recently but she has been really active with grandkids. Pt reprots the L knee pain has just gradually started and started burning and disturbing sleep at night. Prior Treatments and Tests PT for LBP, coritzone injection PT-OP-C Subjective Start: 10/29/19 11:20 Freq: Status: Active Protocol: Document 01/07/20 12:57 [facility] (Rec: 01/07/20 13:01 [facility] [id number]) OP-PT Subjective Patient Comments Patient Comments Pt reports she did better with exercises after instructions PT-OP-F Manual Assessment Start: 10/29/19 11:20 Freq: Status: Active Protocol: Document 12/07/19 09:08 [facility] (Rec: 12/07/19 10:34 [facility] [id number]) Manual Assessments Soft Tissue Assessment Soft Tissue Mobility Assessment tightness L iliacus, L glutes PT-OP-G Mobility & Gait Start: 10/29/19 11:20 Freq: Status: Active Protocol: Document 12/07/19 09:08 [facility] (Rec: 12/07/19 10:34 [facility] [id number]) OP Gait Assessment Comments Gait Comments Dec wt accpetance on LLE with lat lean over LLE with stance on LLE, dec push off B L>R; overall inc rotational push off PT-OP-J Posture/Palpation/Skin Start: 10/29/19 11:20 Freq: Status: Active Protocol: Document 12/07/19 09:08 [facility] (Rec: 12/07/19 10:34 [facility] [id number]) Posture Evaluation [facility] Postural Classification System Me[facility]shi Postural Classifications Vertical/Posterior Vertebral Compression Test 2 Elbow Flexion Test 0 Lumbar Protective Mechanism Left AP 1 Lumbar Protective Mechanism Right AP 3 Lumbar Protective Mechanism Left PA 1 Lumbar Protective Mechanism Right PA 2 PT-OP-K Range of Motion Start: 10/29/19 11:20 Freq: Status: Active Protocol: Document 10/29/19 11:22 [facility] (Rec: 10/29/19 12:07 [facility] [id number]) Knee Goniometric Range of Motion Knee Right Flexion Active (degrees) 129 Extension Active (degrees) 0 Left Flexion Active (degrees) 124 Extension Active (degrees) 5 PT-OP-L Special Tests Start: 10/29/19 11:20 Freq: Status: Active Protocol: Document 12/07/19 09:08 [facility] (Rec: 12/07/19 10:34 [facility] [id number]) Special Tests Lumbar Spine Special Tests Slump Test Results L positive Straight Leg Raise Test Results L positive PT-OP-M Strength Start: 10/29/19 11:20 Freq: Status: Active Protocol: Document 12/07/19 09:08 [facility] (Rec: 12/07/19 10:34 [facility] [id number]) Hip Strength Hip Manual Muscle Testing Right Flexion (L2) 4+ Good+ Extension (S1) 4- Good- Abduction 4 Good Adduction 5 Normal External Rotation 4- Good- Internal Rotation 5 Normal Comments pain in LB w/ext Left Flexion (L2) 4 Good Extension (S1) 4- Good- Abduction 4- Good- Adduction 4 Good External Rotation 3+ Fair+ Internal Rotation 4+ Good+ Comments WNL knee & ankle B Knee Strength Knee Manual Muscle Testing Left Flexion (S2) 5 Normal Extension (L3) 4+ Good+ Right Flexion (S2) 5 Normal Extension (L3) 5 Normal Ankle/Foot Strength Ankle and Foot Manual Muscle Testing Right Dorsiflexion (L4) 5 Normal Plantarflexion (S1) 5 Normal Left Dorsiflexion (L4) 5 Normal Plantarflexion (S1) 5 Normal Comments tested PF seated B PT-OP-Q Treatments Start: 10/29/19 11:20 Freq: Status: Active Protocol: Document 01/07/20 12:57 [facility] (Rec: 01/07/20 13:01 [facility] [id number]) Therapeutic Activity Therapeutic Activity 4 Name standing posture Comments L ribcage shift & appopriate foot, knee and LS & scap position Manual Therapy Treatment Soft Tissue Mobilization 4 Body Location ES & QL L Mobilization Type Rolling,Strumming Intensity/Depth Moderate Body Position Sidelying Neuro Re-Education Treatment Other Activities PNF Details post dep/ant elevation Comments 1.rhythmic initiation 2. COI Self-Care/Home Management Treatment Education Patient Education Home Exercise Program PT-OP-R Modalities Start: 10/29/19 11:20 Freq: Status: Active Protocol: Document 01/07/20 12:57 [facility] (Rec: 01/07/20 13:01 [facility] [id number]) Hot Pack/Cold Pack Treatment Hot Pack Location lumbar & L knee Patient Position Hooklying Treatment Duration (minutes) 15 PT-OP-T Assessment and Plan Start: 10/29/19 11:20 Freq: Status: Active Protocol: Document 01/07/20 12:57 [facility] (Rec: 01/07/20 13:01 [facility] [id number]) Physical Therapy Assessment Goals Four Banking Assistant Goal (LTG) Pt will be able to play cards with friends in sitting without inc pain greater than 2/10 LTG Duration 02/05/20 Three Short Term Goal (STG) Pt will present with good standing and sitting posture without cueing. STG Duration 12/14/19 Banking Assistant Goal (LTG) Pt will have improved gait with demonstrating improved push off B in order to dec instances of L knee and hip pain. LTG Duration 01/28/20 Two Skilled Nursing Goal (LTG) Pt will be able to do lateral and twisting motions without pain in order to allow her to do typical kitchen movements and paly with grandkids without pain. LTG Duration 01/28/20 One Impairment strength Short Term Goal (STG) Pt will be indep with HEP. STG Duration achieved progerssing as needed Banking Assistant Goal (LTG) Pt will ahve 5/5 LE strength and 4/5 LPM and VCT in order to demonstrate improved postural stability and core stabilityt o allow her to do typical activities in kitchen and with grandkids without inc pain. LTG Duration 01/28/20 Assessment Summary Assessment Pt tolerated exercise well and improved with posture with cueing for positioning. She did require use of mirror though. Pt reproted relief w/ STM & PNF Physical Therapy Plan Frequency and Duration Frequency of Treatment 2x/Week Duration of Treatment 2 months Plan of Care Start Date 12/07/19 Plan of Care End Date 02/05/20 Next Visit Focus/Plan Next Note Type Treatment Note Next Visit Plan cont to work hip and lumbar motion & PNF patterns
--- NOTE | 2020-01-12 12:18 | PT.OTN ---
Current Diagnoses Pain in left hip (01/12/20) Pain in left knee (01/12/20) Low back pain (01/12/20) Difficulty in walking, not elsewhere classified (01/12/20) Abnormal posture (01/12/20) Weakness (01/12/20) Physical Therapy Treatment Note PT-OP-A Visit Information Start: 10/29/19 11:20 Freq: Status: Active Protocol: Document 01/12/20 10:27 [facility] (Rec: 01/12/20 12:18 [facility] [id number]) Out-Patient Physical Therapy Visit Information Visit Information Visit Type Treatment Note Visit Note 03/04 Visit Start Time 10:30 Visit Stop Time 11:30 Total Visit Minutes 60 Visit Number 10 Number of PROCESSING MANAGER Visits 0 PT-OP-B Current Condition Start: 10/29/19 11:20 Freq: Status: Active Protocol: Document 12/07/19 09:08 [facility] (Rec: 12/07/19 10:34 [facility] [id number]) Current Condition History of Current Condition Onset Date knee pain about 3 months ago;3 weeks sciatic pain Current Complaints L knee pain & L LB & hip pain History of Current Condition LBP/hip eval 12/07-Pt has history of LBP which she improved with PT but still had some sharp pains after sitting. After sitting playing cards, pt stood and had pain down leg that was excruciating . 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 Pt started recently to have L knee pain and was told she needs a TKA. She cannot have sx until her is done with cancer treatment in 4 moths hopefully . She had an infection in her L knee that idd not do much. She gets a sharp LBP and has a loss of strength where she feels like she is going to fall in L LBP and L hip. She has not been walking recently but she has been really active with grandkids. Pt reprots the L knee pain has just gradually started and started burning and disturbing sleep at night. Prior Treatments and Tests PT for LBP, coritzone injection PT-OP-C Subjective Start: 10/29/19 11:20 Freq: Status: Active Protocol: Document 01/12/20 10:27 [facility] (Rec: 01/12/20 12:18 [facility] [id number]) OP-PT Subjective Patient Comments Patient Comments Pt reports she has a couple exercises taht are still difficult. PT-OP-F Manual Assessment Start: 10/29/19 11:20 Freq: Status: Active Protocol: Document 12/07/19 09:08 [facility] (Rec: 12/07/19 10:34 [facility] [id number]) Manual Assessments Soft Tissue Assessment Soft Tissue Mobility Assessment tightness L iliacus, L glutes PT-OP-G Mobility & Gait Start: 10/29/19 11:20 Freq: Status: Active Protocol: Document 12/07/19 09:08 [facility] (Rec: 12/07/19 10:34 [facility] [id number]) OP Gait Assessment Comments Gait Comments Dec wt accpetance on LLE with lat lean over LLE with stance on LLE, dec push off B L>R; overall inc rotational push off PT-OP-J Posture/Palpation/Skin Start: 10/29/19 11:20 Freq: Status: Active Protocol: Document 12/07/19 09:08 [facility] (Rec: 12/07/19 10:34 [facility] [id number]) Posture Evaluation [facility] Postural Classification System Meenakshi Postural Classifications Vertical/Posterior Vertebral Compression Test 2 Elbow Flexion Test 0 Lumbar Protective Mechanism Left AP 1 Lumbar Protective Mechanism Right AP 3 Lumbar Protective Mechanism Left PA 1 Lumbar Protective Mechanism Right PA 2 PT-OP-K Range of Motion Start: 10/29/19 11:20 Freq: Status: Active Protocol: Document 10/29/19 11:22 [facility] (Rec: 10/29/19 12:07 [facility] [id number]) Knee Goniometric Range of Motion Knee Right Flexion Active (degrees) 129 Extension Active (degrees) 0 Left Flexion Active (degrees) 124 Extension Active (degrees) 5 PT-OP-L Special Tests Start: 10/29/19 11:20 Freq: Status: Active Protocol: Document 12/07/19 09:08 [facility] (Rec: 12/07/19 10:34 [facility] [id number]) Special Tests Lumbar Spine Special Tests Slump Test Results L positive Straight Leg Raise Test Results L positive PT-OP-M Strength Start: 10/29/19 11:20 Freq: Status: Active Protocol: Document 12/07/19 09:08 [facility] (Rec: 12/07/19 10:34 [facility] [id number]) Hip Strength Hip Manual Muscle Testing Right Flexion (L2) 4+ Good+ Extension (S1) 4- Good- Abduction 4 Good Adduction 5 Normal External Rotation 4- Good- Internal Rotation 5 Normal Comments pain in LB w/ext Left Flexion (L2) 4 Good Extension (S1) 4- Good- Abduction 4- Good- Adduction 4 Good External Rotation 3+ Fair+ Internal Rotation 4+ Good+ Comments WNL knee & ankle B Knee Strength Knee Manual Muscle Testing Left Flexion (S2) 5 Normal Extension (L3) 4+ Good+ Right Flexion (S2) 5 Normal Extension (L3) 5 Normal Ankle/Foot Strength Ankle and Foot Manual Muscle Testing Right Dorsiflexion (L4) 5 Normal Plantarflexion (S1) 5 Normal Left Dorsiflexion (L4) 5 Normal Plantarflexion (S1) 5 Normal Comments tested PF seated B PT-OP-Q Treatments Start: 10/29/19 11:20 Freq: Status: Active Protocol: Document 01/12/20 10:27 [facility] (Rec: 01/12/20 12:18 [facility] [id number]) Therapeutic Exercises Supine Exercises 6 Supine Exercise Name bridge Side bilateral Reps/Minutes 20 Comments w/traction facilitation Prone Exercises 1 Prone Exercise Name IR & ER Side left Equipment Used L1 ER Reps/Minutes 20 ea Standing Exercises 3 Standing Exercise Name lunge Side bilateral Reps/Minutes 20 Manual Therapy Treatment Joint Mobilizations 3 Joint hip L Direction IR & ER FM Comments neuro redu w/manual faciliation 2 Joint sacrum Direction caudal & R UPA FM 1 Joint innominate Direction R caudal FM Self-Care/Home Management Treatment Education Patient Education Home Exercise Program Other Education discussion of adding IR & ER in prone to exercises; review of points to remember with exercises PT-OP-R Modalities Start: 10/29/19 11:20 Freq: Status: Active Protocol: Document 01/12/20 10:27 [facility] (Rec: 01/12/20 12:18 [facility] [id number]) Hot Pack/Cold Pack Treatment Hot Pack Location lumbar & L knee Patient Position Hooklying Treatment Duration (minutes) 15 PT-OP-T Assessment and Plan Start: 10/29/19 11:20 Freq: Status: Active Protocol: Document 01/12/20 10:27 [facility] (Rec: 01/12/20 12:18 [facility] [id number]) Physical Therapy Assessment Goals Four Parachute Mender Goal (LTG) Pt will be able to play cards with friends in sitting without inc pain greater than 2/10 LTG Duration 02/05/20 Three Short Term Goal (STG) Pt will present with good standing and sitting posture without cueing. STG Duration 12/14/19 Parachute Mender Goal (LTG) Pt will have improved gait with demonstrating improved push off B in order to dec instances of L knee and hip pain. LTG Duration 01/28/20 Two Care Home Goal (LTG) Pt will be able to do lateral and twisting motions without pain in order to allow her to do typical kitchen movements and paly with grandkids without pain. LTG Duration 01/28/20 One Impairment strength Short Term Goal (STG) Pt will be indep with HEP. STG Duration achieved progerssing as needed Care Home Goal (LTG) Pt will ahve 5/5 LE strength and 4/5 LPM and VCT in order to demonstrate improved postural stability and core stabilityt o allow her to do typical activities in kitchen and with grandkids without inc pain. LTG Duration 01/28/20 Assessment Summary Assessment Pt improved with hip ER & IR after manual treatment and had less cranial gliding of sacrum and R innominate. She still requires some reminders and cueing w/ exercises. Physical Therapy Plan Frequency and Duration Frequency of Treatment 2x/Week Duration of Treatment 2 months Plan of Care Start Date 12/07/19 Plan of Care End Date 02/05/20 Next Visit Focus/Plan Next Note Type Treatment Note Next Visit Plan cont to work hip and lumbar motion & PNF patterns
--- NOTE | 2020-02-02 12:03 | PT.OTN ---
Current Diagnoses Pain in left hip (02/02/20) Pain in left knee (02/02/20) Low back pain (02/02/20) Difficulty in walking, not elsewhere classified (02/02/20) Abnormal posture (02/02/20) Weakness (02/02/20) Physical Therapy Treatment Note PT-OP-A Visit Information Start: 10/29/19 11:20 Freq: Status: Active Protocol: Document 02/02/20 09:43 [facility] (Rec: 02/02/20 12:03 [facility] [id number]) Out-Patient Physical Therapy Visit Information Visit Information Visit Type Treatment Note Visit Note 04/03 Visit Start Time 09:45 Visit Stop Time 10:49 Total Visit Minutes 64 Visit Number 11 Number of CRYSTAL SLICER Visits 0 PT-OP-B Current Condition Start: 10/29/19 11:20 Freq: Status: Active Protocol: Document 12/07/19 09:08 [facility] (Rec: 12/07/19 10:34 [facility] [id number]) Current Condition History of Current Condition Onset Date knee pain about 3 months ago;3 weeks sciatic pain Current Complaints L knee pain & L LB & hip pain History of Current Condition LBP/hip eval 12/07-Pt has history of LBP which she improved with PT but still had some sharp pains after sitting. After sitting playing cards, pt stood and had pain down leg that was excruciating . 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 Pt started recently to have L knee pain and was told she needs a TKA. She cannot have sx until her is done with cancer treatment in 4 moths hopefully . She had an infection in her L knee that idd not do much. She gets a sharp LBP and has a loss of strength where she feels like she is going to fall in L LBP and L hip. She has not been walking recently but she has been really active with grandkids. Pt reprots the L knee pain has just gradually started and started burning and disturbing sleep at night. Prior Treatments and Tests PT for LBP, coritzone injection PT-OP-C Subjective Start: 10/29/19 11:20 Freq: Status: Active Protocol: Document 02/02/20 09:43 [facility] (Rec: 02/02/20 12:03 [facility] [id number]) OP-PT Subjective Patient Comments Patient Comments Pt reports she did fine with her grandkids but when she is back playing cards,s he still has difficutly PT-OP-F Manual Assessment Start: 10/29/19 11:20 Freq: Status: Active Protocol: Document 12/07/19 09:08 [facility] (Rec: 12/07/19 10:34 [facility] [id number]) Manual Assessments Soft Tissue Assessment Soft Tissue Mobility Assessment tightness L iliacus, L glutes PT-OP-G Mobility & Gait Start: 10/29/19 11:20 Freq: Status: Active Protocol: Document 12/07/19 09:08 [facility] (Rec: 12/07/19 10:34 [facility] [id number]) OP Gait Assessment Comments Gait Comments Dec wt accpetance on LLE with lat lean over LLE with stance on LLE, dec push off B L>R; overall inc rotational push off PT-OP-J Posture/Palpation/Skin Start: 10/29/19 11:20 Freq: Status: Active Protocol: Document 12/07/19 09:08 [facility] (Rec: 12/07/19 10:34 [facility] [id number]) Posture Evaluation Meenakshi Postural Classification System Meenakshi Postural Classifications Vertical/Posterior Vertebral Compression Test 2 Elbow Flexion Test 0 Lumbar Protective Mechanism Left AP 1 Lumbar Protective Mechanism Right AP 3 Lumbar Protective Mechanism Left PA 1 Lumbar Protective Mechanism Right PA 2 PT-OP-K Range of Motion Start: 10/29/19 11:20 Freq: Status: Active Protocol: Document 10/29/19 11:22 [facility] (Rec: 10/29/19 12:07 [facility] [id number]) Knee Goniometric Range of Motion Knee Right Flexion Active (degrees) 129 Extension Active (degrees) 0 Left Flexion Active (degrees) 124 Extension Active (degrees) 5 PT-OP-L Special Tests Start: 10/29/19 11:20 Freq: Status: Active Protocol: Document 12/07/19 09:08 [facility] (Rec: 12/07/19 10:34 [facility] [id number]) Special Tests Lumbar Spine Special Tests Slump Test Results L positive Straight Leg Raise Test Results L positive PT-OP-M Strength Start: 10/29/19 11:20 Freq: Status: Active Protocol: Document 12/07/19 09:08 [facility] (Rec: 12/07/19 10:34 [facility] [id number]) Hip Strength Hip Manual Muscle Testing Right Flexion (L2) 4+ Good+ Extension (S1) 4- Good- Abduction 4 Good Adduction 5 Normal External Rotation 4- Good- Internal Rotation 5 Normal Comments pain in LB w/ext Left Flexion (L2) 4 Good Extension (S1) 4- Good- Abduction 4- Good- Adduction 4 Good External Rotation 3+ Fair+ Internal Rotation 4+ Good+ Comments WNL knee & ankle B Knee Strength Knee Manual Muscle Testing Left Flexion (S2) 5 Normal Extension (L3) 4+ Good+ Right Flexion (S2) 5 Normal Extension (L3) 5 Normal Ankle/Foot Strength Ankle and Foot Manual Muscle Testing Right Dorsiflexion (L4) 5 Normal Plantarflexion (S1) 5 Normal Left Dorsiflexion (L4) 5 Normal Plantarflexion (S1) 5 Normal Comments tested PF seated B PT-OP-Q Treatments Start: 10/29/19 11:20 Freq: Status: Active Protocol: Document 02/02/20 09:43 [facility] (Rec: 02/02/20 12:03 [facility] [id number]) Therapeutic Activity Therapeutic Activity 4 Name posture Comments 1. seated posture (unsupported )-use of towel under & edu & set up into proper psoitoing 2. wt acceptance into LE with hip hinge 3. standing posture 4. supported posture edu & set up 5. twisting with use of chair in seated vs back Manual Therapy Treatment Joint Mobilizations 3 Joint hip L Direction inf glide FM Comments neuro redu w/manual faciliation 1 Joint innominate Direction L flex FM PT-OP-R Modalities Start: 10/29/19 11:20 Freq: Status: Active Protocol: Document 02/02/20 09:43 [facility] (Rec: 02/02/20 12:03 [facility] [id number]) Hot Pack/Cold Pack Treatment Hot Pack Location lumbar & L knee Patient Position Hooklying Treatment Duration (minutes) 15 PT-OP-T Assessment and Plan Start: 10/29/19 11:20 Freq: Status: Active Protocol: Document 02/02/20 09:43 [facility] (Rec: 02/02/20 12:03 [facility] [id number]) Physical Therapy Assessment Goals Four Starch Cooker Goal (LTG) Pt will be able to play cards with friends in sitting without inc pain greater than 2/10 LTG Duration 02/05/20 Three Short Term Goal (STG) Pt will present with good standing and sitting posture without cueing. STG Duration 12/14/19 Residential Goal (LTG) Pt will have improved gait with demonstrating improved push off B in order to dec instances of L knee and hip pain. LTG Duration 01/28/20 Two Residential Goal (LTG) Pt will be able to do lateral and twisting motions without pain in order to allow her to do typical kitchen movements and paly with grandkids without pain. LTG Duration 01/28/20 One Impairment strength Short Term Goal (STG) Pt will be indep with HEP. STG Duration achieved progerssing as needed Residential Goal (LTG) Pt will ahve 5/5 LE strength and 4/5 LPM and VCT in order to demonstrate improved postural stability and core stabilityt o allow her to do typical activities in kitchen and with grandkids without inc pain. LTG Duration 01/28/20 Assessment Summary Assessment Pt improved with ability to flex L hip with less pain with manual treatment. She able to imrpoved VCT from 0/5 to 3/5 with postural changes. Able to do hip hinging with significant cueing and repetitiont o get more hip movement vs spine. Physical Therapy Plan Frequency and Duration Frequency of Treatment 2x/Week Duration of Treatment 2 months Plan of Care Start Date 12/07/19 Plan of Care End Date 02/05/20 Next Visit Focus/Plan Next Note Type Progress Note Next Visit Plan work on seated wt shift & accpetance
--- NOTE | 2020-02-04 17:18 | PT.OTN ---
Current Diagnoses Pain in left hip (02/04/20) Pain in left knee (02/04/20) Low back pain (02/04/20) Difficulty in walking, not elsewhere classified (02/04/20) Abnormal posture (02/04/20) Weakness (02/04/20) Physical Therapy Treatment Note PT-OP-A Visit Information Start: 10/29/19 11:20 Freq: Status: Active Protocol: Document 02/04/20 15:27 [facility] (Rec: 02/04/20 17:18 [facility] [id number]) Out-Patient Physical Therapy Visit Information Visit Information Visit Type Progress Note Visit Note 12/04 Visit Start Time 15:22 Visit Stop Time 16:10 Total Visit Minutes 48 Visit Number 12 Number of ACCOUNTING ADMINISTRATOR Visits 0 PT-OP-B Current Condition Start: 10/29/19 11:20 Freq: Status: Active Protocol: Document 12/07/19 09:08 [facility] (Rec: 12/07/19 10:34 [facility] [id number]) Current Condition History of Current Condition Onset Date knee pain about 3 months ago;3 weeks sciatic pain Current Complaints L knee pain & L LB & hip pain History of Current Condition LBP/hip eval 12/07-Pt has history of LBP which she improved with PT but still had some sharp pains after sitting. After sitting playing cards, pt stood and had pain down leg that was excruciating . 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 Pt started recently to have L knee pain and was told she needs a TKA. She cannot have sx until her is done with cancer treatment in 4 moths hopefully . She had an infection in her L knee that idd not do much. She gets a sharp LBP and has a loss of strength where she feels like she is going to fall in L LBP and L hip. She has not been walking recently but she has been really active with grandkids. Pt reprots the L knee pain has just gradually started and started burning and disturbing sleep at night. Prior Treatments and Tests PT for LBP, coritzone injection PT-OP-C Subjective Start: 10/29/19 11:20 Freq: Status: Active Protocol: Document 02/04/20 15:27 [facility] (Rec: 02/04/20 17:18 [facility] [id number]) OP-PT Subjective Patient Comments Patient Comments Pt reprots she was walking her dgt's dog today and was on her phone when the dog pulled hard suddenly to connor a deer and pulled her over. Pt reprots falling on L side. Notes L hip, shoulder and knee are sore now. Did well at cards the day before and was able to play 1.75 games but started to have pain towards the end. She got up frequently during the game. wants to be able to play 2 games PT-OP-F Manual Assessment Start: 10/29/19 11:20 Freq: Status: Active Protocol: Document 12/07/19 09:08 [facility] (Rec: 12/07/19 10:34 [facility] [id number]) Manual Assessments Soft Tissue Assessment Soft Tissue Mobility Assessment tightness L iliacus, L glutes PT-OP-G Mobility & Gait Start: 10/29/19 11:20 Freq: Status: Active Protocol: Document 12/07/19 09:08 [facility] (Rec: 12/07/19 10:34 [facility] [id number]) OP Gait Assessment Comments Gait Comments Dec wt accpetance on LLE with lat lean over LLE with stance on LLE, dec push off B L>R; overall inc rotational push off PT-OP-J Posture/Palpation/Skin Start: 10/29/19 11:20 Freq: Status: Active Protocol: Document 02/04/20 15:27 [facility] (Rec: 02/04/20 17:18 [facility] [id number]) Posture Evaluation Meenakshi Postural Classification System Meenakshi Postural Classifications Vertical/Posterior Vertebral Compression Test 2 Lumbar Protective Mechanism Left AP 2 Lumbar Protective Mechanism Right AP 3 Lumbar Protective Mechanism Left PA 2 Lumbar Protective Mechanism Right PA 3 PT-OP-K Range of Motion Start: 10/29/19 11:20 Freq: Status: Active Protocol: Document 10/29/19 11:22 [facility] (Rec: 10/29/19 12:07 [facility] [id number]) Knee Goniometric Range of Motion Knee Right Flexion Active (degrees) 129 Extension Active (degrees) 0 Left Flexion Active (degrees) 124 Extension Active (degrees) 5 PT-OP-L Special Tests Start: 10/29/19 11:20 Freq: Status: Active Protocol: Document 12/07/19 09:08 [facility] (Rec: 12/07/19 10:34 [facility] [id number]) Special Tests Lumbar Spine Special Tests Slump Test Results L positive Straight Leg Raise Test Results L positive PT-OP-M Strength Start: 10/29/19 11:20 Freq: Status: Active Protocol: Document 02/04/20 15:27 [facility] (Rec: 02/04/20 17:18 [facility] [id number]) Hip Strength Hip Manual Muscle Testing Right Flexion (L2) 4+ Good+ Extension (S1) 4- Good- Abduction 4 Good Adduction 5 Normal External Rotation 4+ Good+ Internal Rotation 4+ Good+ Comments pain in LB w/ext Left Flexion (L2) 4- Good- Extension (S1) 4+ Good+ Abduction 4 Good Adduction 4 Good External Rotation 4- Good- Internal Rotation 4- Good- Comments pain in knee with IR Knee Strength Knee Manual Muscle Testing Left Flexion (S2) 5 Normal Extension (L3) 4+ Good+ Right Flexion (S2) 5 Normal Extension (L3) 5 Normal Ankle/Foot Strength Ankle and Foot Manual Muscle Testing Right Dorsiflexion (L4) 5 Normal Plantarflexion (S1) 5 Normal Left Dorsiflexion (L4) 5 Normal Plantarflexion (S1) 5 Normal Comments tested PF seated B PT-OP-Q Treatments Start: 10/29/19 11:20 Freq: Status: Active Protocol: Document 02/04/20 15:27 [facility] (Rec: 02/04/20 17:18 [facility] [id number]) Therapeutic Exercises Standing Exercises 1 Standing Exercise Name wall roll up Therapeutic Activity Therapeutic Activity 4 Name posture Comments 1. wt acceptance into LE with hip hinge 2standing posture 3. twisting with use of chair in seated vs back PT-OP-R Modalities Start: 10/29/19 11:20 Freq: Status: Active Protocol: Document 02/04/20 15:27 [facility] (Rec: 02/04/20 17:18 [facility] [id number]) Hot Pack/Cold Pack Treatment Cold Pack Location LB, L shoulder, L knee Patient Position Hooklying Treatment Duration (minutes) 10 PT-OP-T Assessment and Plan Start: 10/29/19 11:20 Freq: Status: Active Protocol: Document 02/04/20 15:27 [facility] (Rec: 02/04/20 17:18 [facility] [id number]) Physical Therapy Assessment Goals Four Residential Goal (LTG) Pt will be able to play cards with friends in sitting without inc pain greater than 2/10 02/03- pt able to play 1.75 games but not full 2 games LTG Duration 04/05/20 Three Short Term Goal (STG) Pt will present with good standing and sitting posture without cueing. 02/03-min cueing required STG Duration 03/06/20 Residential Goal (LTG) Pt will have improved gait with demonstrating improved push off B in order to dec instances of L knee and hip pain. 02/03-dec push off today d.t fall so pt had very uneven gait d/t feeling sore LTG Duration 04/05/20 Two Irrigation System Operator Goal (LTG) Pt will be able to do lateral and twisting motions without pain in order to allow her to do typical kitchen movements and paly with grandkids without pain. 02/03-no issues with grand kids , still some knee painw ith pivoting in kitchen LTG Duration 04/05/20 One Impairment strength Short Term Goal (STG) Pt will be indep with HEP. STG Duration achieved progerssing as needed Residential Goal (LTG) Pt will ahve 5/5 LE strength and 4/5 LPM and VCT in order to demonstrate improved postural stability and core stabilityt o allow her to do typical activities in kitchen and with grandkids without inc pain. 02/03-improving LTG Duration 04/05/20 Assessment Summary Assessment Pt was making good progress with min knee pain reported and back & leg pain improving with only issue being card games. She is improivng with ability to sit for card games but is still limited and requires getting up mult times in order to avoid pain. She would have likely tested better had she been tested prior to this fall from dog pulling her down with leash. She feels like she has improved until today with her fall, feeling inc soreness. Physical Therapy Plan Frequency and Duration Frequency of Treatment 2x/Week Duration of Treatment 2 months Plan of Care Start Date 02/04/20 Plan of Care End Date 04/05/20 Therapeutic Interventions Therapeutic Interventions Aquatic Therapy,Balance Training,Gait Training,Home Exercise Program,Joint Mobilizations,Manual Therapy, Neuromuscular Re-education, Patient/Caregiver Education, Self-Care/Home Management,Soft Tissue Mobilization,Taping, Therapeutic Activities, Therapeutic Exercises Modalities Cold Pack/Ice Massage,Electric Stimulation,Hot Packs, Infrared Therapy,Iontophoresis ,Ultrasound Next Visit Focus/Plan Next Note Type Treatment Note
--- NOTE | 2020-02-04 17:19 | PT.OPPOC ---
Physical, Occupational & Speech Therapy At [facility] Current Diagnoses Pain in left hip (02/04/20) Pain in left knee (02/04/20) Low back pain (02/04/20) Difficulty in walking, not elsewhere classified (02/04/20) Abnormal posture (02/04/20) Weakness (02/04/20) Visit Care Team Role Provider Type Nichelle Roy MD Attending Provider Physician Primary Care Provider Specialty: Family Practice Address: [address] [place] [address], [place], [place], [facility] Email: [email or web address] Plan Of Care PT-OP-T Assessment and Plan Start: 10/29/19 11:20 Freq: Status: Active Protocol: Document 02/04/20 15:27 [facility] (Rec: 02/04/20 17:18 [facility] [id number]) Physical Therapy Assessment Goals Four Penitentiary Goal (LTG) Pt will be able to play cards with friends in sitting without inc pain greater than 2/10 02/03- pt able to play 1.75 games but not full 2 games LTG Duration 04/05/20 Three Short Term Goal (STG) Pt will present with good standing and sitting posture without cueing. 02/03-min cueing required STG Duration 03/06/20 Fitting Room Attendant Goal (LTG) Pt will have improved gait with demonstrating improved push off B in order to dec instances of L knee and hip pain. 02/03-dec push off today d.t fall so pt had very uneven gait d/t feeling sore LTG Duration 04/05/20 Two Penitentiary Goal (LTG) Pt will be able to do lateral and twisting motions without pain in order to allow her to do typical kitchen movements and paly with grandkids without pain. 02/03-no issues with grand kids , still some knee painw ith pivoting in kitchen LTG Duration 04/05/20 One Impairment strength Short Term Goal (STG) Pt will be indep with HEP. STG Duration achieved progerssing as needed Penitentiary Goal (LTG) Pt will ahve 5/5 LE strength and 4/5 LPM and VCT in order to demonstrate improved postural stability and core stabilityt o allow her to do typical activities in kitchen and with grandkids without inc pain. 02/03-improving LTG Duration 04/05/20 Assessment Summary Assessment Pt was making good progress with min knee pain reported and back & leg pain improving with only issue being card games. She is improivng with ability to sit for card games but is still limited and requires getting up mult times in order to avoid pain. She would have likely tested better had she been tested prior to this fall from dog pulling her down with leash. She feels like she has improved until today with her fall, feeling inc soreness. Physical Therapy Plan Frequency and Duration Frequency of Treatment 2x/Week Duration of Treatment 2 months Plan of Care Start Date 02/04/20 Plan of Care End Date 04/05/20 Therapeutic Interventions Therapeutic Interventions Aquatic Therapy,Balance Training,Gait Training,Home Exercise Program,Joint Mobilizations,Manual Therapy, Neuromuscular Re-education, Patient/Caregiver Education, Self-Care/Home Management,Soft Tissue Mobilization,Taping, Therapeutic Activities, Therapeutic Exercises Modalities Cold Pack/Ice Massage,Electric Stimulation,Hot Packs, Infrared Therapy,Iontophoresis ,Ultrasound Next Visit Focus/Plan Next Note Type Treatment Note Plan of Care Dates Plan of Care Start Date 02/04/20 Plan of Care End Date 04/05/20 Electronically Signed by: Nichelle Hernandez, PT 02/04/20 [id number] Please Sign and Return: I have reviewed this Plan of Care and certify that the skilled therapy services above are required to meet the patient?s needs. Physician Signature Date Printed Name and Credentials Clinical Instructor Signature Printed Name and Credentials
--- NOTE | 2020-02-09 12:04 | PT.OTN ---
Current Diagnoses Pain in left hip (02/09/20) Pain in left knee (02/09/20) Low back pain (02/09/20) Difficulty in walking, not elsewhere classified (02/09/20) Abnormal posture (02/09/20) Weakness (02/09/20) Physical Therapy Treatment Note PT-OP-A Visit Information Start: 10/29/19 11:20 Freq: Status: Active Protocol: Document 02/09/20 10:30 [facility] (Rec: 02/09/20 12:03 [facility] [id number]) Out-Patient Physical Therapy Visit Information Visit Information Visit Type Treatment Note Visit Note 01/04 Visit Start Time 10:27 Visit Stop Time 10:40 Total Visit Minutes 73 Visit Number 13 Number of DEPUTY CLERK OF [employer]IOR COURT Visits 0 PT-OP-B Current Condition Start: 10/29/19 11:20 Freq: Status: Active Protocol: Document 12/07/19 09:08 [facility] (Rec: 12/07/19 10:34 [facility] [id number]) Current Condition History of Current Condition Onset Date knee pain about 3 months ago;3 weeks sciatic pain Current Complaints L knee pain & L LB & hip pain History of Current Condition LBP/hip eval 12/07-Pt has history of LBP which she improved with PT but still had some sharp pains after sitting. After sitting playing cards, pt stood and had pain down leg that was excruciating . 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 Pt started recently to have L knee pain and was told she needs a TKA. She cannot have sx until her is done with cancer treatment in 4 moths hopefully . She had an infection in her L knee that idd not do much. She gets a sharp LBP and has a loss of strength where she feels like she is going to fall in L LBP and L hip. She has not been walking recently but she has been really active with grandkids. Pt reprots the L knee pain has just gradually started and started burning and disturbing sleep at night. Prior Treatments and Tests PT for LBP, coritzone injection PT-OP-C Subjective Start: 10/29/19 11:20 Freq: Status: Active Protocol: Document 02/09/20 10:30 [facility] (Rec: 02/09/20 12:03 [facility] [id number]) OP-PT Subjective Patient Comments Patient Comments Pt reprots recovering from fall. She hasn't added the pelvic tilt with towel exercise yet PT-OP-F Manual Assessment Start: 10/29/19 11:20 Freq: Status: Active Protocol: Document 12/07/19 09:08 [facility] (Rec: 12/07/19 10:34 [facility] [id number]) Manual Assessments Soft Tissue Assessment Soft Tissue Mobility Assessment tightness L iliacus, L glutes PT-OP-G Mobility & Gait Start: 10/29/19 11:20 Freq: Status: Active Protocol: Document 12/07/19 09:08 [facility] (Rec: 12/07/19 10:34 [facility] [id number]) OP Gait Assessment Comments Gait Comments Dec wt accpetance on LLE with lat lean over LLE with stance on LLE, dec push off B L>R; overall inc rotational push off PT-OP-J Posture/Palpation/Skin Start: 10/29/19 11:20 Freq: Status: Active Protocol: Document 02/04/20 15:27 [facility] (Rec: 02/04/20 17:18 [facility] [id number]) Posture Evaluation Meenakshi Postural Classification System Meenakshi Postural Classifications Vertical/Posterior Vertebral Compression Test 2 Lumbar Protective Mechanism Left AP 2 Lumbar Protective Mechanism Right AP 3 Lumbar Protective Mechanism Left PA 2 Lumbar Protective Mechanism Right PA 3 PT-OP-K Range of Motion Start: 10/29/19 11:20 Freq: Status: Active Protocol: Document 10/29/19 11:22 [facility] (Rec: 10/29/19 12:07 [facility] [id number]) Knee Goniometric Range of Motion Knee Right Flexion Active (degrees) 129 Extension Active (degrees) 0 Left Flexion Active (degrees) 124 Extension Active (degrees) 5 PT-OP-L Special Tests Start: 10/29/19 11:20 Freq: Status: Active Protocol: Document 12/07/19 09:08 [facility] (Rec: 12/07/19 10:34 [facility] [id number]) Special Tests Lumbar Spine Special Tests Slump Test Results L positive Straight Leg Raise Test Results L positive PT-OP-M Strength Start: 10/29/19 11:20 Freq: Status: Active Protocol: Document 02/04/20 15:27 [facility] (Rec: 02/04/20 17:18 [facility] [id number]) Hip Strength Hip Manual Muscle Testing Right Flexion (L2) 4+ Good+ Extension (S1) 4- Good- Abduction 4 Good Adduction 5 Normal External Rotation 4+ Good+ Internal Rotation 4+ Good+ Comments pain in LB w/ext Left Flexion (L2) 4- Good- Extension (S1) 4+ Good+ Abduction 4 Good Adduction 4 Good External Rotation 4- Good- Internal Rotation 4- Good- Comments pain in knee with IR Knee Strength Knee Manual Muscle Testing Left Flexion (S2) 5 Normal Extension (L3) 4+ Good+ Right Flexion (S2) 5 Normal Extension (L3) 5 Normal Ankle/Foot Strength Ankle and Foot Manual Muscle Testing Right Dorsiflexion (L4) 5 Normal Plantarflexion (S1) 5 Normal Left Dorsiflexion (L4) 5 Normal Plantarflexion (S1) 5 Normal Comments tested PF seated B PT-OP-Q Treatments Start: 10/29/19 11:20 Freq: Status: Active Protocol: Document 02/09/20 10:30 [facility] (Rec: 02/09/20 12:03 [facility] [id number]) Therapeutic Exercises Supine Exercises 6 Supine Exercise Name foam roll: flex, Habd Side bilateral Reps/Minutes 10 5 Supine Exercise Name pelvic tilt with towel under thoracic Reps/Minutes 10 4 Supine Exercise Name pelvic clock Side bilateral Reps/Minutes 10 Comments CW & CCW Standing Exercises 4 Standing Exercise Name wall posture roll up 3 Standing Exercise Name L pelvic shear at wall Reps/Minutes 8 Therapeutic Activity Therapeutic Activity 4 Name posture Comments standing in mirror Manual Therapy Treatment Soft Tissue Mobilization 5 Body Location adomenal & hip flexor w/LTR & hip flex Mobilization Type Sustained Pressure Intensity/Depth Moderate PT-OP-R Modalities Start: 10/29/19 11:20 Freq: Status: Active Protocol: Document 02/09/20 10:30 [facility] (Rec: 02/09/20 12:03 [facility] [id number]) Hot Pack/Cold Pack Treatment Hot Pack Location lumbar & L knee Patient Position Hooklying Treatment Duration (minutes) 15 PT-OP-T Assessment and Plan Start: 10/29/19 11:20 Freq: Status: Active Protocol: Document 02/09/20 10:30 [facility] (Rec: 02/09/20 12:03 [facility] [id number]) Physical Therapy Assessment Goals Four Correction Goal (LTG) Pt will be able to play cards with friends in sitting without inc pain greater than 2/10 02/03- pt able to play 1.75 games but not full 2 games LTG Duration 04/05/20 Three Short Term Goal (STG) Pt will present with good standing and sitting posture without cueing. 02/03-min cueing required STG Duration 03/06/20 Correction Goal (LTG) Pt will have improved gait with demonstrating improved push off B in order to dec instances of L knee and hip pain. 02/03-dec push off today d.t fall so pt had very uneven gait d/t feeling sore LTG Duration 04/05/20 Two Model And Pattern Supervisor Goal (LTG) Pt will be able to do lateral and twisting motions without pain in order to allow her to do typical kitchen movements and paly with grandkids without pain. 02/03-no issues with grand kids , still some knee painw ith pivoting in kitchen LTG Duration 04/05/20 One Impairment strength Short Term Goal (STG) Pt will be indep with HEP. STG Duration achieved progerssing as needed Correction Goal (LTG) Pt will ahve 5/5 LE strength and 4/5 LPM and VCT in order to demonstrate improved postural stability and core stabilityt o allow her to do typical activities in kitchen and with grandkids without inc pain. 02/03-improving LTG Duration 04/05/20 Assessment Summary Assessment Improved posture with use of mirror and cueing. Pt also had improved posture and ability to lumbar flex an wall posture exercise after manual treatment. She cont to have limits in mid thoracic spine that affects her ability to relax lumbar spine out of ext ins tanding. Physical Therapy Plan Frequency and Duration Frequency of Treatment 2x/Week Duration of Treatment 2 months Plan of Care Start Date 02/04/20 Plan of Care End Date 04/05/20 Next Visit Focus/Plan Next Note Type Treatment Note Next Visit Plan cont to work on ability to flex lumbar spine and extend thoracic
--- NOTE | 2020-02-11 14:15 | PT.OTN ---
Current Diagnoses Pain in left hip (02/11/20) Pain in left knee (02/11/20) Low back pain (02/11/20) Difficulty in walking, not elsewhere classified (02/11/20) Abnormal posture (02/11/20) Weakness (02/11/20) Physical Therapy Treatment Note PT-OP-A Visit Information Start: 10/29/19 11:20 Freq: Status: Active Protocol: Document 02/11/20 11:09 [facility] (Rec: 02/11/20 14:15 [facility] [id number]) Out-Patient Physical Therapy Visit Information Visit Information Visit Type Treatment Note Visit Start Time 10:35 Visit Stop Time 11:35 Total Visit Minutes 60 Visit Number 14 Number of [employer] PIL[employer] Visits 0 PT-OP-B Current Condition Start: 10/29/19 11:20 Freq: Status: Active Protocol: Document 12/07/19 09:08 [facility] (Rec: 12/07/19 10:34 [facility] [id number]) Current Condition History of Current Condition Onset Date knee pain about 3 months ago;3 weeks sciatic pain Current Complaints L knee pain & L LB & hip pain History of Current Condition LBP/hip eval 12/07-Pt has history of LBP which she improved with PT but still had some sharp pains after sitting. After sitting playing cards, pt stood and had pain down leg that was excruciating . 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 Pt started recently to have L knee pain and was told she needs a TKA. She cannot have sx until her is done with cancer treatment in 4 moths hopefully . She had an infection in her L knee that idd not do much. She gets a sharp LBP and has a loss of strength where she feels like she is going to fall in L LBP and L hip. She has not been walking recently but she has been really active with grandkids. Pt reprots the L knee pain has just gradually started and started burning and disturbing sleep at night. Prior Treatments and Tests PT for LBP, coritzone injection PT-OP-C Subjective Start: 10/29/19 11:20 Freq: Status: Active Protocol: Document 02/11/20 11:09 [facility] (Rec: 02/11/20 14:15 [facility] [id number]) OP-PT Subjective Patient Comments Patient Comments Pt reports overall doing well. Patient Reported Progress Improving PT-OP-F Manual Assessment Start: 10/29/19 11:20 Freq: Status: Active Protocol: Document 12/07/19 09:08 [facility] (Rec: 12/07/19 10:34 [facility] [id number]) Manual Assessments Soft Tissue Assessment Soft Tissue Mobility Assessment tightness L iliacus, L glutes PT-OP-G Mobility & Gait Start: 10/29/19 11:20 Freq: Status: Active Protocol: Document 12/07/19 09:08 [facility] (Rec: 12/07/19 10:34 [facility] [id number]) OP Gait Assessment Comments Gait Comments Dec wt accpetance on LLE with lat lean over LLE with stance on LLE, dec push off B L>R; overall inc rotational push off PT-OP-J Posture/Palpation/Skin Start: 10/29/19 11:20 Freq: Status: Active Protocol: Document 02/04/20 15:27 [facility] (Rec: 02/04/20 17:18 [facility] [id number]) Posture Evaluation Meenakshi Postural Classification System Meenakshi Postural Classifications Vertical/Posterior Vertebral Compression Test 2 Lumbar Protective Mechanism Left AP 2 Lumbar Protective Mechanism Right AP 3 Lumbar Protective Mechanism Left PA 2 Lumbar Protective Mechanism Right PA 3 PT-OP-K Range of Motion Start: 10/29/19 11:20 Freq: Status: Active Protocol: Document 10/29/19 11:22 [facility] (Rec: 10/29/19 12:07 [facility] [id number]) Knee Goniometric Range of Motion Knee Right Flexion Active (degrees) 129 Extension Active (degrees) 0 Left Flexion Active (degrees) 124 Extension Active (degrees) 5 PT-OP-L Special Tests Start: 10/29/19 11:20 Freq: Status: Active Protocol: Document 12/07/19 09:08 [facility] (Rec: 12/07/19 10:34 [facility] [id number]) Special Tests Lumbar Spine Special Tests Slump Test Results L positive Straight Leg Raise Test Results L positive PT-OP-M Strength Start: 10/29/19 11:20 Freq: Status: Active Protocol: Document 02/04/20 15:27 [facility] (Rec: 02/04/20 17:18 [facility] [id number]) Hip Strength Hip Manual Muscle Testing Right Flexion (L2) 4+ Good+ Extension (S1) 4- Good- Abduction 4 Good Adduction 5 Normal External Rotation 4+ Good+ Internal Rotation 4+ Good+ Comments pain in LB w/ext Left Flexion (L2) 4- Good- Extension (S1) 4+ Good+ Abduction 4 Good Adduction 4 Good External Rotation 4- Good- Internal Rotation 4- Good- Comments pain in knee with IR Knee Strength Knee Manual Muscle Testing Left Flexion (S2) 5 Normal Extension (L3) 4+ Good+ Right Flexion (S2) 5 Normal Extension (L3) 5 Normal Ankle/Foot Strength Ankle and Foot Manual Muscle Testing Right Dorsiflexion (L4) 5 Normal Plantarflexion (S1) 5 Normal Left Dorsiflexion (L4) 5 Normal Plantarflexion (S1) 5 Normal Comments tested PF seated B PT-OP-Q Treatments Start: 10/29/19 11:20 Freq: Status: Active Protocol: Document 02/11/20 11:09 [facility] (Rec: 02/11/20 14:15 [facility] [id number]) Therapeutic Exercises Supine Exercises 4 Supine Exercise Name pelvic clock Side bilateral Reps/Minutes 10 w/ dynadisc & 10 w/o Comments CW & CCW Standing Exercises 4 Standing Exercise Name wall posture roll up 3 Standing Exercise Name L pelvic shear at wall Reps/Minutes 8x2 Manual Therapy Treatment Joint Mobilizations innominate Joint L Direction IR FM 3 Joint thoracic T5-10 Direction PA 2 Joint hip L Direction on axis ER & IR FM 1 Joint sacrum Direction L UPA PT-OP-R Modalities Start: 10/29/19 11:20 Freq: Status: Active Protocol: Document 02/11/20 11:09 [facility] (Rec: 02/11/20 14:15 [facility] [id number]) Hot Pack/Cold Pack Treatment Hot Pack Location lumbar & L hip Patient Position Hooklying Treatment Duration (minutes) 15 PT-OP-T Assessment and Plan Start: 10/29/19 11:20 Freq: Status: Active Protocol: Document 02/11/20 11:09 [facility] (Rec: 02/11/20 14:15 [facility] [id number]) Physical Therapy Assessment Goals Four Detention Goal (LTG) Pt will be able to play cards with friends in sitting without inc pain greater than 2/10 02/03- pt able to play 1.75 games but not full 2 games LTG Duration 04/05/20 Three Short Term Goal (STG) Pt will present with good standing and sitting posture without cueing. 02/03-min cueing required STG Duration 03/06/20 Detention Goal (LTG) Pt will have improved gait with demonstrating improved push off B in order to dec instances of L knee and hip pain. 02/03-dec push off today d.t fall so pt had very uneven gait d/t feeling sore LTG Duration 04/05/20 Two Detention Goal (LTG) Pt will be able to do lateral and twisting motions without pain in order to allow her to do typical kitchen movements and paly with grandkids without pain. 02/03-no issues with grand kids , still some knee painw ith pivoting in kitchen LTG Duration 04/05/20 One Impairment strength Short Term Goal (STG) Pt will be indep with HEP. STG Duration achieved progerssing as needed Detention Goal (LTG) Pt will ahve 5/5 LE strength and 4/5 LPM and VCT in order to demonstrate improved postural stability and core stabilityt o allow her to do typical activities in kitchen and with grandkids without inc pain. 02/03-improving LTG Duration 04/05/20 Assessment Summary Assessment Pt improved with performance of exercises and was able to do pelvic clock after dynadisc better. improved performance of wall posture also. REquired inc time with pelvic clock for form Physical Therapy Plan Frequency and Duration Frequency of Treatment 2x/Week Duration of Treatment 2 months Plan of Care Start Date 02/04/20 Plan of Care End Date 04/05/20 Next Visit Focus/Plan Next Note Type Treatment Note Next Visit Plan cont to work on ability to flex lumbar spine and extend thoracic
--- NOTE | 2020-02-16 18:05 | PT.OTN ---
Current Diagnoses Pain in left hip (02/16/20) Pain in left knee (02/16/20) Low back pain (02/16/20) Difficulty in walking, not elsewhere classified (02/16/20) Abnormal posture (02/16/20) Weakness (02/16/20) Physical Therapy Treatment Note PT-OP-A Visit Information Start: 10/29/19 11:20 Freq: Status: Active Protocol: Document 02/16/20 10:28 [facility] (Rec: 02/16/20 18:05 [facility] [id number]) Out-Patient Physical Therapy Visit Information Visit Information Visit Type Treatment Note Visit Start Time 10:32 Visit Stop Time 11:32 Total Visit Minutes 60 Visit Number 15 Number of GREENHOUSE [employer]ORIST Visits 0 PT-OP-B Current Condition Start: 10/29/19 11:20 Freq: Status: Active Protocol: Document 12/07/19 09:08 [facility] (Rec: 12/07/19 10:34 [facility] [id number]) Current Condition History of Current Condition Onset Date knee pain about 3 months ago;3 weeks sciatic pain Current Complaints L knee pain & L LB & hip pain History of Current Condition LBP/hip eval 12/07-Pt has history of LBP which she improved with PT but still had some sharp pains after sitting. After sitting playing cards, pt stood and had pain down leg that was excruciating . 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 Pt started recently to have L knee pain and was told she needs a TKA. She cannot have sx until her is done with cancer treatment in 4 moths hopefully . She had an infection in her L knee that idd not do much. She gets a sharp LBP and has a loss of strength where she feels like she is going to fall in L LBP and L hip. She has not been walking recently but she has been really active with grandkids. Pt reprots the L knee pain has just gradually started and started burning and disturbing sleep at night. Prior Treatments and Tests PT for LBP, coritzone injection PT-OP-C Subjective Start: 10/29/19 11:20 Freq: Status: Active Protocol: Document 02/16/20 10:28 [facility] (Rec: 02/16/20 18:05 [facility] [id number]) OP-PT Subjective Patient Comments Patient Comments Pt reports overall doing well and feels like exercises are really helpful Patient Reported Progress Improving PT-OP-F Manual Assessment Start: 10/29/19 11:20 Freq: Status: Active Protocol: Document 12/07/19 09:08 [facility] (Rec: 12/07/19 10:34 [facility] [id number]) Manual Assessments Soft Tissue Assessment Soft Tissue Mobility Assessment tightness L iliacus, L glutes PT-OP-G Mobility & Gait Start: 10/29/19 11:20 Freq: Status: Active Protocol: Document 12/07/19 09:08 [facility] (Rec: 12/07/19 10:34 [facility] [id number]) OP Gait Assessment Comments Gait Comments Dec wt accpetance on LLE with lat lean over LLE with stance on LLE, dec push off B L>R; overall inc rotational push off PT-OP-J Posture/Palpation/Skin Start: 10/29/19 11:20 Freq: Status: Active Protocol: Document 02/04/20 15:27 [facility] (Rec: 02/04/20 17:18 [facility] [id number]) Posture Evaluation Meenakshi Postural Classification System Meenakshi Postural Classifications Vertical/Posterior Vertebral Compression Test 2 Lumbar Protective Mechanism Left AP 2 Lumbar Protective Mechanism Right AP 3 Lumbar Protective Mechanism Left PA 2 Lumbar Protective Mechanism Right PA 3 PT-OP-K Range of Motion Start: 10/29/19 11:20 Freq: Status: Active Protocol: Document 10/29/19 11:22 [facility] (Rec: 10/29/19 12:07 [facility] [id number]) Knee Goniometric Range of Motion Knee Right Flexion Active (degrees) 129 Extension Active (degrees) 0 Left Flexion Active (degrees) 124 Extension Active (degrees) 5 PT-OP-L Special Tests Start: 10/29/19 11:20 Freq: Status: Active Protocol: Document 12/07/19 09:08 [facility] (Rec: 12/07/19 10:34 [facility] [id number]) Special Tests Lumbar Spine Special Tests Slump Test Results L positive Straight Leg Raise Test Results L positive PT-OP-M Strength Start: 10/29/19 11:20 Freq: Status: Active Protocol: Document 02/04/20 15:27 [facility] (Rec: 02/04/20 17:18 [facility] [id number]) Hip Strength Hip Manual Muscle Testing Right Flexion (L2) 4+ Good+ Extension (S1) 4- Good- Abduction 4 Good Adduction 5 Normal External Rotation 4+ Good+ Internal Rotation 4+ Good+ Comments pain in LB w/ext Left Flexion (L2) 4- Good- Extension (S1) 4+ Good+ Abduction 4 Good Adduction 4 Good External Rotation 4- Good- Internal Rotation 4- Good- Comments pain in knee with IR Knee Strength Knee Manual Muscle Testing Left Flexion (S2) 5 Normal Extension (L3) 4+ Good+ Right Flexion (S2) 5 Normal Extension (L3) 5 Normal Ankle/Foot Strength Ankle and Foot Manual Muscle Testing Right Dorsiflexion (L4) 5 Normal Plantarflexion (S1) 5 Normal Left Dorsiflexion (L4) 5 Normal Plantarflexion (S1) 5 Normal Comments tested PF seated B PT-OP-Q Treatments Start: 10/29/19 11:20 Freq: Status: Active Protocol: Document 02/16/20 10:28 [facility] (Rec: 02/16/20 18:05 [facility] [id number]) Therapeutic Exercises Supine Exercises 6 Supine Exercise Name pelvic tilt Reps/Minutes 3 5 Supine Exercise Name pelvic clocks Reps/Minutes [address] 4 Supine Exercise Name bridge Side bilateral Equipment Used 10 2 Supine Exercise Name LTR Side bilateral Reps/Minutes 8 Comments focus on segmental control Sidelying Exercises 3 Sidelying Exercise Name hip abd Side bilateral Reps/Minutes 10 Standing Exercises 4 Standing Exercise Name wall posture roll up 3 Standing Exercise Name L pelvic shear at wall Reps/Minutes 8 2 Standing Exercise Name lunges Side bilateral Reps/Minutes 10 1 Standing Exercise Name sit to stand Side bilateral Reps/Minutes 10 Comments focus on control Manual Therapy Treatment Soft Tissue Mobilization 5 Body Location adomenal & hip flexor w/LTR & hip flex Mobilization Type Sustained Pressure Intensity/Depth Moderate Self-Care/Home Management Treatment Education Patient Education Home Exercise Program Other Education hip hinging, importance of posture, HEP frequency, self abdomenal mobs PT-OP-R Modalities Start: 10/29/19 11:20 Freq: Status: Active Protocol: Document 02/16/20 10:28 [facility] (Rec: 02/16/20 18:05 [facility] [id number]) Hot Pack/Cold Pack Treatment Hot Pack Location lumbar & L knee Patient Position Hooklying Treatment Duration (minutes) 15 PT-OP-T Assessment and Plan Start: 10/29/19 11:20 Freq: Status: Active Protocol: Document 02/16/20 10:28 [facility] (Rec: 02/16/20 18:05 [facility] [id number]) Physical Therapy Assessment Goals Four Snf Goal (LTG) Pt will be able to play cards with friends in sitting without inc pain greater than 2/10 02/03- pt able to play 1.75 games but not full 2 games LTG Duration 04/05/20 Three Short Term Goal (STG) Pt will present with good standing and sitting posture without cueing. 02/03-min cueing required STG Duration 03/06/20 Snf Goal (LTG) Pt will have improved gait with demonstrating improved push off B in order to dec instances of L knee and hip pain. 02/03-dec push off today d.t fall so pt had very uneven gait d/t feeling sore LTG Duration 04/05/20 Two Snf Goal (LTG) Pt will be able to do lateral and twisting motions without pain in order to allow her to do typical kitchen movements and paly with grandkids without pain. 02/03-no issues with grand kids , still some knee painw ith pivoting in kitchen LTG Duration 04/05/20 One Impairment strength Short Term Goal (STG) Pt will be indep with HEP. STG Duration achieved progerssing as needed Snf Goal (LTG) Pt will ahve 5/5 LE strength and 4/5 LPM and VCT in order to demonstrate improved postural stability and core stabilityt o allow her to do typical activities in kitchen and with grandkids without inc pain. 02/03-improving LTG Duration 04/05/20 Assessment Summary Assessment Pt improved with performance of exercises and required less cueing today. She was educated on how to cont to perform and was educated on how to do some self manual as clinic will be closed fro 1 month d/t COVID 19. Physical Therapy Plan Frequency and Duration Frequency of Treatment 2x/Week Duration of Treatment 2 months Plan of Care Start Date 02/04/20 Plan of Care End Date 04/05/20 Next Visit Focus/Plan Next Note Type Treatment Note Next Visit Plan cont to work on ability to flex lumbar spine and extend thoracic
--- NOTE | 2020-03-22 13:06 | PT-OP ANOTE ---
Pt called re: starting to schedule appointments again and informed will be following CDC guidelines with dec therapists present in clinic, masks worn, cleaning and hand washing. Educated that they are not required to attend and it this pt choice re: attending. Pt agreeable to be seen.
--- NOTE | 2020-04-06 18:35 | PT.OTN ---
Current Diagnoses Pain in left hip (04/06/20) Pain in left knee (04/06/20) Low back pain (04/06/20) Difficulty in walking, not elsewhere classified (04/06/20) Abnormal posture (04/06/20) Weakness (04/06/20) Physical Therapy Treatment Note PT-OP-A Visit Information Start: 10/29/19 11:20 Freq: Status: Active Protocol: Document 04/06/20 16:50 [facility] (Rec: 04/06/20 18:35 [facility] [id number]) Out-Patient Physical Therapy Visit Information Visit Information Visit Type Progress Note Visit Start Time 16:54 Visit Stop Time 17:37 Total Visit Minutes 43 Visit Number 16 Number of STUDIO [employer]CH FRAME [employer]ILDER Visits 0 PT-OP-B Current Condition Start: 10/29/19 11:20 Freq: Status: Active Protocol: Document 12/07/19 09:08 [facility] (Rec: 12/07/19 10:34 [facility] [id number]) Current Condition History of Current Condition Onset Date knee pain about 3 months ago;3 weeks sciatic pain Current Complaints L knee pain & L LB & hip pain History of Current Condition LBP/hip eval 12/07-Pt has history of LBP which she improved with PT but still had some sharp pains after sitting. After sitting playing cards, pt stood and had pain down leg that was excruciating . 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 Pt started recently to have L knee pain and was told she needs a TKA. She cannot have sx until her is done with cancer treatment in 4 moths hopefully . She had an infection in her L knee that idd not do much. She gets a sharp LBP and has a loss of strength where she feels like she is going to fall in L LBP and L hip. She has not been walking recently but she has been really active with grandkids. Pt reprots the L knee pain has just gradually started and started burning and disturbing sleep at night. Prior Treatments and Tests PT for LBP, coritzone injection PT-OP-C Subjective Start: 10/29/19 11:20 Freq: Status: Active Protocol: Document 04/06/20 16:50 [facility] (Rec: 04/06/20 18:35 [facility] [id number]) OP-PT Subjective Patient Comments Patient Comments Pt reprots michael horse in L calf in bed the other day. Pt reports she does okay with cards for short time with small aches and fatigue vs sharp pain. No pain down the leg recently. Has not kept up with the exercises as much recently. Pt reports she feels like the shot is wearing off and knee is bothering her. Pt reports knee hurts with squatting down for gardening and some pain with walking and feels grinding which makes her feel unstable.Pt reports LB has been painful when sitting for long periods. She is limited some outdoor yard work d/t concernf or balance. Patient Reported Progress Improving PT-OP-F Manual Assessment Start: 10/29/19 11:20 Freq: Status: Active Protocol: Document 12/07/19 09:08 [facility] (Rec: 12/07/19 10:34 [facility] [id number]) Manual Assessments Soft Tissue Assessment Soft Tissue Mobility Assessment tightness L iliacus, L glutes PT-OP-G Mobility & Gait Start: 10/29/19 11:20 Freq: Status: Active Protocol: Document 12/07/19 09:08 [facility] (Rec: 12/07/19 10:34 [facility] [id number]) OP Gait Assessment Comments Gait Comments Dec wt accpetance on LLE with lat lean over LLE with stance on LLE, dec push off B L>R; overall inc rotational push off PT-OP-J Posture/Palpation/Skin Start: 10/29/19 11:20 Freq: Status: Active Protocol: Document 04/06/20 16:50 [facility] (Rec: 04/06/20 18:35 [facility] [id number]) Posture Evaluation [facility] Postural Classification System Meenakshi Postural Classifications Vertical/Posterior Vertebral Compression Test 4 Lumbar Protective Mechanism Left AP 2 Lumbar Protective Mechanism Right AP 3 Lumbar Protective Mechanism Left PA 3 Lumbar Protective Mechanism Right PA 4 PT-OP-K Range of Motion Start: 10/29/19 11:20 Freq: Status: Active Protocol: Document 10/29/19 11:22 [facility] (Rec: 10/29/19 12:07 [facility] [id number]) Knee Goniometric Range of Motion Knee Right Flexion Active (degrees) 129 Extension Active (degrees) 0 Left Flexion Active (degrees) 124 Extension Active (degrees) 5 PT-OP-L Special Tests Start: 10/29/19 11:20 Freq: Status: Active Protocol: Document 12/07/19 09:08 [facility] (Rec: 12/07/19 10:34 [facility] [id number]) Special Tests Lumbar Spine Special Tests Slump Test Results L positive Straight Leg Raise Test Results L positive PT-OP-M Strength Start: 10/29/19 11:20 Freq: Status: Active Protocol: Document 04/06/20 16:50 [facility] (Rec: 04/06/20 18:35 [facility] [id number]) Hip Strength Hip Manual Muscle Testing Right Flexion (L2) 4+ Good+ Extension (S1) 4 Good Abduction 4 Good Adduction 4 Good External Rotation 4+ Good+ Internal Rotation 5 Normal Comments pain in LB w/ext Left Flexion (L2) 4 Good Extension (S1) 4 Good Abduction 4 Good Adduction 4 Good External Rotation 4- Good- Internal Rotation 4 Good Knee Strength Knee Manual Muscle Testing Left Flexion (S2) 5 Normal Extension (L3) 4+ Good+ Right Flexion (S2) 5 Normal Extension (L3) 5 Normal Ankle/Foot Strength Ankle and Foot Manual Muscle Testing Right Dorsiflexion (L4) 5 Normal Plantarflexion (S1) 5 Normal Left Dorsiflexion (L4) 5 Normal Plantarflexion (S1) 5 Normal Comments tested PF seated B PT-OP-Q Treatments Start: 10/29/19 11:20 Freq: Status: Active Protocol: Document 04/06/20 16:50 [facility] (Rec: 04/06/20 18:35 [facility] [id number]) Therapeutic Exercises Sitting Exercises marches Sitting Exercise Name focus on core Side bilateral Reps/Minutes 10 Standing Exercises 2 Standing Exercise Name lunges Side bilateral Reps/Minutes 10 1 Standing Exercise Name sit to stand Side bilateral Reps/Minutes 10 Comments focus on control PT-OP-R Modalities Start: 10/29/19 11:20 Freq: Status: Active Protocol: Document 02/16/20 10:28 [facility] (Rec: 02/16/20 18:05 [facility] [id number]) Hot Pack/Cold Pack Treatment Hot Pack Location lumbar & L knee Patient Position Hooklying Treatment Duration (minutes) 15 PT-OP-T Assessment and Plan Start: 10/29/19 11:20 Freq: Status: Active Protocol: Document 04/06/20 16:50 [facility] (Rec: 04/06/20 18:35 [facility] [id number]) Physical Therapy Assessment Goals [employer] Goal (LTG) Pt will be able to play cards with friends in sitting without inc pain greater than 2/10 02/03- pt able to play 1.75 games but not full 2 games LTG Duration 06/06/20 Three Short Term Goal (STG) Pt will present with good standing and sitting posture without cueing. 02/03-min cueing required 04/06-significantly improved with improved function demonstrated STG Duration 04/26/20 Fci Goal (LTG) Pt will have improved gait with demonstrating improved push off B in order to dec instances of L knee and hip pain. 02/03-dec push off today d.t fall so pt had very uneven gait d/t feeling sore LTG Duration 06/06/20 Two [facility]ci Goal (LTG) Pt will be able to do lateral and twisting motions without pain in order to allow her to do typical kitchen movements and paly with grandkids without pain. 02/03-no issues with grand kids , still some knee painw ith pivoting in kitchen LTG Duration 06/06/20 One Impairment strength Short Term Goal (STG) Pt will be indep with HEP. STG Duration achieved progerssing as needed Fci Goal (LTG) Pt will ahve 5/5 LE strength and 4/5 LPM and VCT in order to demonstrate improved postural stability and core stabilityt o allow her to do typical activities in kitchen and with grandkids without inc pain. 02/03-improving LTG Duration 06/06/20 Assessment Summary Assessment Pt has made some progress on strength and fucntional activity but was limited some by COVID and clinic being closed fro 6 weeks and her fracturing his hip causing her to inc CG roles over this time and dec her ability to participate in her HEP. Inc time required today in order to work on pt's ability to do sit<>Stands and lunges as pt cont to struggle with these exercises in maintaining good form. Improved flex ROM and dec pain into flex after manual treatment. Physical Therapy Plan Frequency and Duration Frequency of Treatment 2x/Week Duration of Treatment 2 months Plan of Care Start Date 04/06/20 Plan of Care End Date 06/06/20 Therapeutic Interventions Therapeutic Interventions Aquatic Therapy,Balance Training,Gait Training,Home Exercise Program,Joint Mobilizations,Manual Therapy, Neuromuscular Re-education, Patient/Caregiver Education, Self-Care/Home Management,Soft Tissue Mobilization,Taping, Therapeutic Activities, Therapeutic Exercises Modalities Cold Pack/Ice Massage,Electric Stimulation,Hot Packs, Infrared Therapy,Iontophoresis ,Ultrasound Next Visit Focus/Plan Next Note Type Treatment Note Next Visit Plan cont to work on ability to flex lumbar spine and extend thoracic & work on seated postural stability
--- NOTE | 2020-04-06 18:35 | PT.OPPOC ---
Physical, Occupational & Speech Therapy At [facility] Current Diagnoses Pain in left hip (04/06/20) Pain in left knee (04/06/20) Low back pain (04/06/20) Difficulty in walking, not elsewhere classified (04/06/20) Abnormal posture (04/06/20) Weakness (04/06/20) Visit Care Team Role Provider Type Nichelle Roy MD Attending Provider Physician Primary Care Provider Specialty: Family Practice Address: [address] [place] [address], [place], [place], [facility] Email: [email or web address] Plan Of Care PT-OP-T Assessment and Plan Start: 10/29/19 11:20 Freq: Status: Active Protocol: Document 04/06/20 16:50 [facility] (Rec: 04/06/20 18:35 [facility] [id number]) Physical Therapy Assessment Goals Four [facility] Goal (LTG) Pt will be able to play cards with friends in sitting without inc pain greater than 2/10 02/03- pt able to play 1.75 games but not full 2 games LTG Duration 06/06/20 Three Short Term Goal (STG) Pt will present with good standing and sitting posture without cueing. 02/03-min cueing required 04/06-significantly improved with improved function demonstrated STG Duration 04/26/20 Animal Physiology Teacher Goal (LTG) Pt will have improved gait with demonstrating improved push off B in order to dec instances of L knee and hip pain. 02/03-dec push off today d.t fall so pt had very uneven gait d/t feeling sore LTG Duration 06/06/20 Two [facility] Goal (LTG) Pt will be able to do lateral and twisting motions without pain in order to allow her to do typical kitchen movements and paly with grandkids without pain. 02/03-no issues with grand kids , still some knee painw ith pivoting in kitchen LTG Duration 06/06/20 One Impairment strength Short Term Goal (STG) Pt will be indep with HEP. STG Duration achieved progerssing as needed Animal Physiology Teacher Goal (LTG) Pt will ahve 5/5 LE strength and 4/5 LPM and VCT in order to demonstrate improved postural stability and core stabilityt o allow her to do typical activities in kitchen and with grandkids without inc pain. 02/03-improving LTG Duration 06/06/20 Assessment Summary Assessment Pt has made some progress on strength and fucntional activity but was limited some by COVID and clinic being closed fro 6 weeks and her fracturing his hip causing her to inc CG roles over this time and dec her ability to participate in her HEP. Inc time required today in order to work on pt's ability to do sit<>Stands and lunges as pt cont to struggle with these exercises in maintaining good form. Improved flex ROM and dec pain into flex after manual treatment. Physical Therapy Plan Frequency and Duration Frequency of Treatment 2x/Week Duration of Treatment 2 months Plan of Care Start Date 04/06/20 Plan of Care End Date 06/06/20 Therapeutic Interventions Therapeutic Interventions Aquatic Therapy,Balance Training,Gait Training,Home Exercise Program,Joint Mobilizations,Manual Therapy, Neuromuscular Re-education, Patient/Caregiver Education, Self-Care/Home Management,Soft Tissue Mobilization,Taping, Therapeutic Activities, Therapeutic Exercises Modalities Cold Pack/Ice Massage,Electric Stimulation,Hot Packs, Infrared Therapy,Iontophoresis ,Ultrasound Next Visit Focus/Plan Next Note Type Treatment Note Next Visit Plan cont to work on ability to flex lumbar spine and extend thoracic & work on seated postural stability Plan of Care Dates Plan of Care Start Date 04/06/20 Plan of Care End Date 06/06/20 Electronically Signed by: Nichelle Hernandez, PT 04/06/20 2460 Please Sign and Return: I have reviewed this Plan of Care and certify that the skilled therapy services above are required to meet the patient?s needs. Physician Signature Date Printed Name and Credentials Clinical Instructor Signature Printed Name and Credentials
--- NOTE | 2020-04-13 15:52 | PT.OTN ---
Current Diagnoses Pain in left hip (04/13/20) Pain in left knee (04/13/20) Low back pain (04/13/20) Difficulty in walking, not elsewhere classified (04/13/20) Abnormal posture (04/13/20) Weakness (04/13/20) Physical Therapy Treatment Note PT-OP-A Visit Information Start: 10/29/19 11:20 Freq: Status: Active Protocol: Document 04/13/20 12:28 [facility] (Rec: 04/13/20 15:52 [facility] [id number]) Out-Patient Physical Therapy Visit Information Visit Information Visit Type Treatment Note Visit Start Time 13:01 Visit Stop Time 13:46 Total Visit Minutes 45 Visit Number 17 Number of ADMINISTRATIVE SUPPORT ASSOCIATE Visits 0 PT-OP-B Current Condition Start: 10/29/19 11:20 Freq: Status: Active Protocol: Document 12/07/19 09:08 [facility] (Rec: 12/07/19 10:34 [facility] [id number]) Current Condition History of Current Condition Onset Date knee pain about 3 months ago;3 weeks sciatic pain Current Complaints L knee pain & L LB & hip pain History of Current Condition LBP/hip eval 12/07-Pt has history of LBP which she improved with PT but still had some sharp pains after sitting. After sitting playing cards, pt stood and had pain down leg that was excruciating . 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 Pt started recently to have L knee pain and was told she needs a TKA. She cannot have sx until her is done with cancer treatment in 4 moths hopefully . She had an infection in her L knee that idd not do much. She gets a sharp LBP and has a loss of strength where she feels like she is going to fall in L LBP and L hip. She has not been walking recently but she has been really active with grandkids. Pt reprots the L knee pain has just gradually started and started burning and disturbing sleep at night. Prior Treatments and Tests PT for LBP, coritzone injection PT-OP-C Subjective Start: 10/29/19 11:20 Freq: Status: Active Protocol: Document 04/13/20 12:28 [facility] (Rec: 04/13/20 15:52 [facility] [id number]) OP-PT Subjective Patient Comments Patient Comments Pt reports trying some exercises PT-OP-F Manual Assessment Start: 10/29/19 11:20 Freq: Status: Active Protocol: Document 12/07/19 09:08 [facility] (Rec: 12/07/19 10:34 [facility] [id number]) Manual Assessments Soft Tissue Assessment Soft Tissue Mobility Assessment tightness L iliacus, L glutes PT-OP-G Mobility & Gait Start: 10/29/19 11:20 Freq: Status: Active Protocol: Document 12/07/19 09:08 [facility] (Rec: 12/07/19 10:34 [facility] [id number]) OP Gait Assessment Comments Gait Comments Dec wt accpetance on LLE with lat lean over LLE with stance on LLE, dec push off B L>R; overall inc rotational push off PT-OP-J Posture/Palpation/Skin Start: 10/29/19 11:20 Freq: Status: Active Protocol: Document 04/06/20 16:50 [facility] (Rec: 04/06/20 18:35 [facility] [id number]) Posture Evaluation [facility] Postural Classification System Meenakshi Postural Classifications Vertical/Posterior Vertebral Compression Test 4 Lumbar Protective Mechanism Left AP 2 Lumbar Protective Mechanism Right AP 3 Lumbar Protective Mechanism Left PA 3 Lumbar Protective Mechanism Right PA 4 PT-OP-K Range of Motion Start: 10/29/19 11:20 Freq: Status: Active Protocol: Document 10/29/19 11:22 [facility] (Rec: 10/29/19 12:07 [facility] [id number]) Knee Goniometric Range of Motion Knee Right Flexion Active (degrees) 129 Extension Active (degrees) 0 Left Flexion Active (degrees) 124 Extension Active (degrees) 5 PT-OP-L Special Tests Start: 10/29/19 11:20 Freq: Status: Active Protocol: Document 12/07/19 09:08 [facility] (Rec: 12/07/19 10:34 [facility] [id number]) Special Tests Lumbar Spine Special Tests Slump Test Results L positive Straight Leg Raise Test Results L positive PT-OP-M Strength Start: 10/29/19 11:20 Freq: Status: Active Protocol: Document 04/06/20 16:50 [facility] (Rec: 04/06/20 18:35 [facility] [id number]) Hip Strength Hip Manual Muscle Testing Right Flexion (L2) 4+ Good+ Extension (S1) 4 Good Abduction 4 Good Adduction 4 Good External Rotation 4+ Good+ Internal Rotation 5 Normal Comments pain in LB w/ext Left Flexion (L2) 4 Good Extension (S1) 4 Good Abduction 4 Good Adduction 4 Good External Rotation 4- Good- Internal Rotation 4 Good Knee Strength Knee Manual Muscle Testing Left Flexion (S2) 5 Normal Extension (L3) 4+ Good+ Right Flexion (S2) 5 Normal Extension (L3) 5 Normal Ankle/Foot Strength Ankle and Foot Manual Muscle Testing Right Dorsiflexion (L4) 5 Normal Plantarflexion (S1) 5 Normal Left Dorsiflexion (L4) 5 Normal Plantarflexion (S1) 5 Normal Comments tested PF seated B PT-OP-Q Treatments Start: 10/29/19 11:20 Freq: Status: Active Protocol: Document 04/13/20 12:28 [facility] (Rec: 04/13/20 15:52 [facility] [id number]) Therapeutic Exercises Supine Exercises 6 Supine Exercise Name bridges with PPT Reps/Minutes 10 Comments traction facilitiaton 5 Supine Exercise Name single leg isometric for core Side bilateral Reps/Minutes 15 sec B x2 4 Supine Exercise Name SLR with core engagement Side bilateral Reps/Minutes 10 Standing Exercises 2 Standing Exercise Name lunges Side bilateral Reps/Minutes 10 1 Standing Exercise Name sit to stand Side bilateral Reps/Minutes 10 Comments focus on control Therapeutic Activity Therapeutic Activity 4 Comments 1. lifting mechanics for small objects 2. movement for wiping counters, sweeping & vacuuming with pt mimicing neutral positons of PT Self-Care/Home Management Treatment Education Other Education edu on neutral back for home activities, edu on how core is important and neutral spine important PT-OP-R Modalities Start: 10/29/19 11:20 Freq: Status: Active Protocol: Document 02/16/20 10:28 [facility] (Rec: 02/16/20 18:05 [facility] [id number]) Hot Pack/Cold Pack Treatment Hot Pack Location lumbar & L knee Patient Position Hooklying Treatment Duration (minutes) 15 PT-OP-T Assessment and Plan Start: 10/29/19 11:20 Freq: Status: Active Protocol: Document 04/13/20 12:28 [facility] (Rec: 04/13/20 15:52 [facility] [id number]) Physical Therapy Assessment Goals Four Fci Goal (LTG) Pt will be able to play cards with friends in sitting without inc pain greater than 2/10 02/03- pt able to play 1.75 games but not full 2 games LTG Duration 06/06/20 Three Short Term Goal (STG) Pt will present with good standing and sitting posture without cueing. 02/03-min cueing required 04/06-significantly improved with improved function demonstrated STG Duration 04/26/20 [facility]ci Goal (LTG) Pt will have improved gait with demonstrating improved push off B in order to dec instances of L knee and hip pain. 02/03-dec push off today d.t fall so pt had very uneven gait d/t feeling sore LTG Duration 06/06/20 Two Differential Specialist Goal (LTG) Pt will be able to do lateral and twisting motions without pain in order to allow her to do typical kitchen movements and paly with grandkids without pain. 02/03-no issues with grand kids , still some knee painw ith pivoting in kitchen LTG Duration 06/06/20 One Impairment strength Short Term Goal (STG) Pt will be indep with HEP. STG Duration achieved progerssing as needed Differential Specialist Goal (LTG) Pt will ahve 5/5 LE strength and 4/5 LPM and VCT in order to demonstrate improved postural stability and core stabilityt o allow her to do typical activities in kitchen and with grandkids without inc pain. 02/03-improving LTG Duration 06/06/20 Assessment Summary Assessment Pt cont to require significant cueing for form with all exercises and edu of why the wrong ways hurt her. She did better with exercises by end of session and had extra info written on HEP sheet. She showed understanding of working on apprpriate back position during daily activities. Physical Therapy Plan Frequency and Duration Frequency of Treatment 2x/Week Duration of Treatment 2 months Plan of Care Start Date 04/06/20 Plan of Care End Date 06/06/20 Next Visit Focus/Plan Next Note Type Treatment Note Next Visit Plan cont to work on ability to flex lumbar spine and extend thoracic & work on seated postural stability
--- NOTE | 2020-04-20 15:22 | PT.OTN ---
Current Diagnoses Pain in left hip (04/20/20) Pain in left knee (04/20/20) Low back pain (04/20/20) Difficulty in walking, not elsewhere classified (04/20/20) Abnormal posture (04/20/20) Weakness (04/20/20) Physical Therapy Treatment Note PT-OP-A Visit Information Start: 10/29/19 11:20 Freq: Status: Active Protocol: Document 04/20/20 10:25 [facility] (Rec: 04/20/20 15:22 [facility] [id number]) Out-Patient Physical Therapy Visit Information Visit Information Visit Type Treatment Note Visit Start Time 10:33 Visit Stop Time 11:15 Total Visit Minutes 42 Visit Number 18 Number of [employer] TALEO MANAGER Visits 0 PT-OP-B Current Condition Start: 10/29/19 11:20 Freq: Status: Active Protocol: Document 12/07/19 09:08 [facility] (Rec: 12/07/19 10:34 [facility] [id number]) Current Condition History of Current Condition Onset Date knee pain about 3 months ago;3 weeks sciatic pain Current Complaints L knee pain & L LB & hip pain History of Current Condition LBP/hip eval 12/07-Pt has history of LBP which she improved with PT but still had some sharp pains after sitting. After sitting playing cards, pt stood and had pain down leg that was excruciating . 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 Pt started recently to have L knee pain and was told she needs a TKA. She cannot have sx until her is done with cancer treatment in 4 moths hopefully . She had an infection in her L knee that idd not do much. She gets a sharp LBP and has a loss of strength where she feels like she is going to fall in L LBP and L hip. She has not been walking recently but she has been really active with grandkids. Pt reprots the L knee pain has just gradually started and started burning and disturbing sleep at night. Prior Treatments and Tests PT for LBP, coritzone injection PT-OP-C Subjective Start: 10/29/19 11:20 Freq: Status: Active Protocol: Document 04/20/20 10:25 [facility] (Rec: 04/20/20 15:22 [facility] [id number]) OP-PT Subjective Patient Comments Patient Comments Pt notes more compliance with HEP. Notes inc walking alos. Notes some more aches in back. PT-OP-F Manual Assessment Start: 10/29/19 11:20 Freq: Status: Active Protocol: Document 12/07/19 09:08 [facility] (Rec: 12/07/19 10:34 [facility] [id number]) Manual Assessments Soft Tissue Assessment Soft Tissue Mobility Assessment tightness L iliacus, L glutes PT-OP-G Mobility & Gait Start: 10/29/19 11:20 Freq: Status: Active Protocol: Document 12/07/19 09:08 [facility] (Rec: 12/07/19 10:34 [facility] [id number]) OP Gait Assessment Comments Gait Comments Dec wt accpetance on LLE with lat lean over LLE with stance on LLE, dec push off B L>R; overall inc rotational push off PT-OP-J Posture/Palpation/Skin Start: 10/29/19 11:20 Freq: Status: Active Protocol: Document 04/06/20 16:50 [facility] (Rec: 04/06/20 18:35 [facility] [id number]) Posture Evaluation Meenakshi Postural Classification System Meenakshi Postural Classifications Vertical/Posterior Vertebral Compression Test 4 Lumbar Protective Mechanism Left AP 2 Lumbar Protective Mechanism Right AP 3 Lumbar Protective Mechanism Left PA 3 Lumbar Protective Mechanism Right PA 4 PT-OP-K Range of Motion Start: 10/29/19 11:20 Freq: Status: Active Protocol: Document 10/29/19 11:22 [facility] (Rec: 10/29/19 12:07 [facility] [id number]) Knee Goniometric Range of Motion Knee Right Flexion Active (degrees) 129 Extension Active (degrees) 0 Left Flexion Active (degrees) 124 Extension Active (degrees) 5 PT-OP-L Special Tests Start: 10/29/19 11:20 Freq: Status: Active Protocol: Document 12/07/19 09:08 [facility] (Rec: 12/07/19 10:34 [facility] [id number]) Special Tests Lumbar Spine Special Tests Slump Test Results L positive Straight Leg Raise Test Results L positive PT-OP-M Strength Start: 10/29/19 11:20 Freq: Status: Active Protocol: Document 04/06/20 16:50 [facility] (Rec: 04/06/20 18:35 [facility] [id number]) Hip Strength Hip Manual Muscle Testing Right Flexion (L2) 4+ Good+ Extension (S1) 4 Good Abduction 4 Good Adduction 4 Good External Rotation 4+ Good+ Internal Rotation 5 Normal Comments pain in LB w/ext Left Flexion (L2) 4 Good Extension (S1) 4 Good Abduction 4 Good Adduction 4 Good External Rotation 4- Good- Internal Rotation 4 Good Knee Strength Knee Manual Muscle Testing Left Flexion (S2) 5 Normal Extension (L3) 4+ Good+ Right Flexion (S2) 5 Normal Extension (L3) 5 Normal Ankle/Foot Strength Ankle and Foot Manual Muscle Testing Right Dorsiflexion (L4) 5 Normal Plantarflexion (S1) 5 Normal Left Dorsiflexion (L4) 5 Normal Plantarflexion (S1) 5 Normal Comments tested PF seated B PT-OP-Q Treatments Start: 10/29/19 11:20 Freq: Status: Active Protocol: Document 04/20/20 10:25 [facility] (Rec: 04/20/20 15:22 [facility] [id number]) Gym Equipment Sport Cord 1 Exercise Details wt shifts and gait into mirror Cord/Resistance green Gait Training Gait Activity gait at wall Description work on post depression/ant elevtion 2 Description wt shifts in mirror with focus on no lat movement or rotation Comments significant time required to get correct 1 Description slow gait toward mirror working on psuh off Neuro Re-Education Treatment Other Activities PNF Details ant elevation L Comments 1. rhythmic initiation 2. sustained hold end range PT-OP-R Modalities Start: 10/29/19 11:20 Freq: Status: Active Protocol: Document 02/16/20 10:28 [facility] (Rec: 02/16/20 18:05 [facility] [id number]) Hot Pack/Cold Pack Treatment Hot Pack Location lumbar & L knee Patient Position Hooklying Treatment Duration (minutes) 15 PT-OP-T Assessment and Plan Start: 10/29/19 11:20 Freq: Status: Active Protocol: Document 04/20/20 10:25 [facility] (Rec: 04/20/20 15:22 [facility] [id number]) Physical Therapy Assessment Goals Four [facility] Goal (LTG) Pt will be able to play cards with friends in sitting without inc pain greater than 2/10 12- pt able to play 1.75 games but not full 2 games LTG Duration 06/06/20 Three Short Term Goal (STG) Pt will present with good standing and sitting posture without cueing. 02/03-min cueing required 04/06-significantly improved with improved function demonstrated STG Duration 04/26/20 [facility] Goal (LTG) Pt will have improved gait with demonstrating improved push off B in order to dec instances of L knee and hip pain. 02/03-dec push off today d.t fall so pt had very uneven gait d/t feeling sore LTG Duration 06/06/20 Two Rice Farmworker Goal (LTG) Pt will be able to do lateral and twisting motions without pain in order to allow her to do typical kitchen movements and paly with grandkids without pain. 02/03-no issues with grand kids , still some knee painw ith pivoting in kitchen LTG Duration 06/06/20 One Impairment strength Short Term Goal (STG) Pt will be indep with HEP. STG Duration achieved progerssing as needed Rice Farmworker Goal (LTG) Pt will ahve 5/5 LE strength and 4/5 LPM and VCT in order to demonstrate improved postural stability and core stabilityt o allow her to do typical activities in kitchen and with grandkids without inc pain. 02/03-improving LTG Duration 06/06/20 Assessment Summary Assessment Pt required significant cueing to work on wt shift and acceptance for appropriate gait. She improved with cueing and mirror use but has limitation with pelvic motions so more PNF training would benefit pt. Physical Therapy Plan Frequency and Duration Frequency of Treatment 2x/Week Duration of Treatment 2 months Plan of Care Start Date 04/06/20 Plan of Care End Date 06/06/20 Next Visit Focus/Plan Next Note Type Treatment Note Next Visit Plan PNF L side pelvis, work on gait again
--- NOTE | 2020-04-25 16:42 | PT.OTN ---
Current Diagnoses Pain in left hip (04/25/20) Pain in left knee (04/25/20) Low back pain (04/25/20) Difficulty in walking, not elsewhere classified (04/25/20) Abnormal posture (04/25/20) Weakness (04/25/20) Physical Therapy Treatment Note PT-OP-A Visit Information Start: 10/29/19 11:20 Freq: Status: Active Protocol: Document 04/25/20 16:26 [facility] (Rec: 04/25/20 16:42 [facility] [id number]) Out-Patient Physical Therapy Visit Information Visit Information Visit Type Treatment Note Visit Note 03/04 Visit Start Time 13:00 Visit Stop Time 14:00 Total Visit Minutes 60 Visit Number 19 Number of PACKAGING MACHINE OPERATOR Visits 0 PT-OP-B Current Condition Start: 10/29/19 11:20 Freq: Status: Active Protocol: Document 12/07/19 09:08 [facility] (Rec: 12/07/19 10:34 [facility] [id number]) Current Condition History of Current Condition Onset Date knee pain about 3 months ago;3 weeks sciatic pain Current Complaints L knee pain & L LB & hip pain History of Current Condition LBP/hip eval 12/07-Pt has history of LBP which she improved with PT but still had some sharp pains after sitting. After sitting playing cards, pt stood and had pain down leg that was excruciating . 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 Pt started recently to have L knee pain and was told she needs a TKA. She cannot have sx until her is done with cancer treatment in 4 moths hopefully . She had an infection in her L knee that idd not do much. She gets a sharp LBP and has a loss of strength where she feels like she is going to fall in L LBP and L hip. She has not been walking recently but she has been really active with grandkids. Pt reprots the L knee pain has just gradually started and started burning and disturbing sleep at night. Prior Treatments and Tests PT for LBP, coritzone injection PT-OP-C Subjective Start: 10/29/19 11:20 Freq: Status: Active Protocol: Document 04/25/20 16:26 [facility] (Rec: 04/25/20 16:42 [facility] [id number]) OP-PT Subjective Patient Comments Patient Comments Pt reports Sat she had a really bad day and is unsure why where the pain went down her leg again. Doing better yesterday and today. Cont exercises PT-OP-F Manual Assessment Start: 10/29/19 11:20 Freq: Status: Active Protocol: Document 12/07/19 09:08 [facility] (Rec: 12/07/19 10:34 [facility] [id number]) Manual Assessments Soft Tissue Assessment Soft Tissue Mobility Assessment tightness L iliacus, L glutes PT-OP-G Mobility & Gait Start: 10/29/19 11:20 Freq: Status: Active Protocol: Document 12/07/19 09:08 [facility] (Rec: 12/07/19 10:34 [facility] [id number]) OP Gait Assessment Comments Gait Comments Dec wt accpetance on LLE with lat lean over LLE with stance on LLE, dec push off B L>R; overall inc rotational push off PT-OP-J Posture/Palpation/Skin Start: 10/29/19 11:20 Freq: Status: Active Protocol: Document 04/06/20 16:50 [facility] (Rec: 04/06/20 18:35 [facility] [id number]) Posture Evaluation Meenakshi Postural Classification System Meenakshi Postural Classifications Vertical/Posterior Vertebral Compression Test 4 Lumbar Protective Mechanism Left AP 2 Lumbar Protective Mechanism Right AP 3 Lumbar Protective Mechanism Left PA 3 Lumbar Protective Mechanism Right PA 4 PT-OP-K Range of Motion Start: 10/29/19 11:20 Freq: Status: Active Protocol: Document 10/29/19 11:22 [facility] (Rec: 10/29/19 12:07 [facility] [id number]) Knee Goniometric Range of Motion Knee Right Flexion Active (degrees) 129 Extension Active (degrees) 0 Left Flexion Active (degrees) 124 Extension Active (degrees) 5 PT-OP-L Special Tests Start: 10/29/19 11:20 Freq: Status: Active Protocol: Document 12/07/19 09:08 [facility] (Rec: 12/07/19 10:34 [facility] [id number]) Special Tests Lumbar Spine Special Tests Slump Test Results L positive Straight Leg Raise Test Results L positive PT-OP-M Strength Start: 12/05/19 11:20 Freq: Status: Active Protocol: Document 04/06/20 16:50 [facility] (Rec: 04/06/20 18:35 [facility] [id number]) Hip Strength Hip Manual Muscle Testing Right Flexion (L2) 4+ Good+ Extension (S1) 4 Good Abduction 4 Good Adduction 4 Good External Rotation 4+ Good+ Internal Rotation 5 Normal Comments pain in LB w/ext Left Flexion (L2) 4 Good Extension (S1) 4 Good Abduction 4 Good Adduction 4 Good External Rotation 4- Good- Internal Rotation 4 Good Knee Strength Knee Manual Muscle Testing Left Flexion (S2) 5 Normal Extension (L3) 4+ Good+ Right Flexion (S2) 5 Normal Extension (L3) 5 Normal Ankle/Foot Strength Ankle and Foot Manual Muscle Testing Right Dorsiflexion (L4) 5 Normal Plantarflexion (S1) 5 Normal Left Dorsiflexion (L4) 5 Normal Plantarflexion (S1) 5 Normal Comments tested PF seated B PT-OP-Q Treatments Start: 10/29/19 11:20 Freq: Status: Active Protocol: Document 04/25/20 16:26 [facility] (Rec: 04/25/20 16:42 [facility] [id number]) Manual Therapy Treatment Soft Tissue Mobilization 5 Body Location QL & ant iliac crest Mobilization Type Rolling,Sustained Pressure Intensity/Depth Moderate Body Position Sidelying Comments basking seal 4 Body Location abdomenal Mobilization Type Sustained Pressure Intensity/Depth Moderate Body Position Sidelying Comments basking seal 3 Body Location ES L Mobilization Type Rolling Intensity/Depth Moderate Comments basking seal Neuro Re-Education Treatment Other Activities PNF Details ant elevation & post depression L Comments 1. rhythmic initiation 2. sustained hold end range 3. COI Self-Care/Home Management Treatment Education Other Education discussed icing and heating to help with pain and uses stretches and needed and cont abdomenal exercises PT-OP-R Modalities Start: 10/29/19 11:20 Freq: Status: Active Protocol: Document 04/25/20 16:26 [facility] (Rec: 04/25/20 16:42 [facility] [id number]) Hot Pack/Cold Pack Treatment Hot Pack Location lumbar & L knee Patient Position Hooklying Treatment Duration (minutes) 15 PT-OP-T Assessment and Plan Start: 10/29/19 11:20 Freq: Status: Active Protocol: Document 04/25/20 16:26 [facility] (Rec: 04/25/20 16:42 [facility] [id number]) Physical Therapy Assessment Goals Four Shellfish Bed Worker Goal (LTG) Pt will be able to play cards with friends in sitting without inc pain greater than 2/10 02/03- pt able to play 1.75 games but not full 2 games LTG Duration 06/06/20 Three Short Term Goal (STG) Pt will present with good standing and sitting posture without cueing. 02/03-min cueing required 04/06-significantly improved with improved function demonstrated STG Duration 04/26/20 [facility] Goal (LTG) Pt will have improved gait with demonstrating improved push off B in order to dec instances of L knee and hip pain. 02/03-dec push off today d.t fall so pt had very uneven gait d/t feeling sore LTG Duration 06/06/20 Two Shellfish Bed Worker Goal (LTG) Pt will be able to do lateral and twisting motions without pain in order to allow her to do typical kitchen movements and paly with grandkids without pain. 02/03-no issues with grand kids , still some knee painw ith pivoting in kitchen LTG Duration 06/06/20 One Impairment strength Short Term Goal (STG) Pt will be indep with HEP. STG Duration achieved progerssing as needed Mcfp Goal (LTG) Pt will ahve 5/5 LE strength and 4/5 LPM and VCT in order to demonstrate improved postural stability and core stabilityt o allow her to do typical activities in kitchen and with grandkids without inc pain. 02/03-improving LTG Duration 06/06/20 Assessment Summary Assessment Pt improved with ability to move pelvis into ant elevation & post depression with manual treatment and reported a relief in pain w/manual treatment. She has difficultyw ith PNF patterns and improved with ability to go through patterns with facilitaiton. Physical Therapy Plan Frequency and Duration Frequency of Treatment 2x/Week Duration of Treatment 2 months Plan of Care Start Date 04/06/20 Plan of Care End Date 06/06/20 Next Visit Focus/Plan Next Note Type Treatment Note Next Visit Plan PNF L side pelvis, work on gait again
--- NOTE | 2020-04-27 13:01 | PT.OTN ---
Current Diagnoses Pain in left hip (04/27/20) Pain in left knee (04/27/20) Low back pain (04/27/20) Difficulty in walking, not elsewhere classified (04/27/20) Abnormal posture (04/27/20) Weakness (04/27/20) Physical Therapy Treatment Note PT-OP-A Visit Information Start: 10/29/19 11:20 Freq: Status: Active Protocol: Document 04/27/20 12:52 [facility] (Rec: 04/27/20 13:00 [facility] [id number]) Out-Patient Physical Therapy Visit Information Visit Information Visit Type Treatment Note Visit Note 04/03 Visit Start Time 11:18 Visit Stop Time 12:00 Total Visit Minutes 42 Visit Number 20 Number of CELLULAR EQUIPMENT INSTALLER Visits 0 PT-OP-B Current Condition Start: 10/29/19 11:20 Freq: Status: Active Protocol: Document 12/07/19 09:08 [facility] (Rec: 12/07/19 10:34 [facility] [id number]) Current Condition History of Current Condition Onset Date knee pain about 3 months ago;3 weeks sciatic pain Current Complaints L knee pain & L LB & hip pain History of Current Condition LBP/hip eval 12/07-Pt has history of LBP which she improved with PT but still had some sharp pains after sitting. After sitting playing cards, pt stood and had pain down leg that was excruciating . 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 Pt started recently to have L knee pain and was told she needs a TKA. She cannot have sx until her is done with cancer treatment in 4 moths hopefully . She had an infection in her L knee that idd not do much. She gets a sharp LBP and has a loss of strength where she feels like she is going to fall in L LBP and L hip. She has not been walking recently but she has been really active with grandkids. Pt reprots the L knee pain has just gradually started and started burning and disturbing sleep at night. Prior Treatments and Tests PT for LBP, coritzone injection PT-OP-C Subjective Start: 10/29/19 11:20 Freq: Status: Active Protocol: Document 04/27/20 12:52 [facility] (Rec: 04/27/20 13:00 [facility] [id number]) OP-PT Subjective Patient Comments Patient Comments Pt reports feeling great after last session and working on [employer] (V3D). Reports she gardened yesterday and felt good overall PT-OP-F Manual Assessment Start: 10/29/19 11:20 Freq: Status: Active Protocol: Document 12/07/19 09:08 [facility] (Rec: 12/07/19 10:34 [facility] [id number]) Manual Assessments Soft Tissue Assessment Soft Tissue Mobility Assessment tightness L iliacus, L glutes PT-OP-G Mobility & Gait Start: 10/29/19 11:20 Freq: Status: Active Protocol: Document 12/07/19 09:08 [facility] (Rec: 12/07/19 10:34 [facility] [id number]) OP Gait Assessment Comments Gait Comments Dec wt accpetance on LLE with lat lean over LLE with stance on LLE, dec push off B L>R; overall inc rotational push off PT-OP-J Posture/Palpation/Skin Start: 10/29/19 11:20 Freq: Status: Active Protocol: Document 04/06/20 16:50 [facility] (Rec: 04/06/20 18:35 [facility] [id number]) Posture Evaluation Meenakshi Postural Classification System Meenakshi Postural Classifications Vertical/Posterior Vertebral Compression Test 4 Lumbar Protective Mechanism Left AP 2 Lumbar Protective Mechanism Right AP 3 Lumbar Protective Mechanism Left PA 3 Lumbar Protective Mechanism Right PA 4 PT-OP-K Range of Motion Start: 10/29/19 11:20 Freq: Status: Active Protocol: Document 10/29/19 11:22 [facility] (Rec: 10/29/19 12:07 [facility] [id number]) Knee Goniometric Range of Motion Knee Right Flexion Active (degrees) 129 Extension Active (degrees) 0 Left Flexion Active (degrees) 124 Extension Active (degrees) 5 PT-OP-L Special Tests Start: 10/29/19 11:20 Freq: Status: Active Protocol: Document 12/07/19 09:08 [facility] (Rec: 12/07/19 10:34 [facility] [id number]) Special Tests Lumbar Spine Special Tests Slump Test Results L positive Straight Leg Raise Test Results L positive PT-OP-M Strength Start: 10/29/19 11:20 Freq: Status: Active Protocol: Document 04/06/20 16:50 [facility] (Rec: 04/06/20 18:35 [facility] [id number]) Hip Strength Hip Manual Muscle Testing Right Flexion (L2) 4+ Good+ Extension (S1) 4 Good Abduction 4 Good Adduction 4 Good External Rotation 4+ Good+ Internal Rotation 5 Normal Comments pain in LB w/ext Left Flexion (L2) 4 Good Extension (S1) 4 Good Abduction 4 Good Adduction 4 Good External Rotation 4- Good- Internal Rotation 4 Good Knee Strength Knee Manual Muscle Testing Left Flexion (S2) 5 Normal Extension (L3) 4+ Good+ Right Flexion (S2) 5 Normal Extension (L3) 5 Normal Ankle/Foot Strength Ankle and Foot Manual Muscle Testing Right Dorsiflexion (L4) 5 Normal Plantarflexion (S1) 5 Normal Left Dorsiflexion (L4) 5 Normal Plantarflexion (S1) 5 Normal Comments tested PF seated B PT-OP-Q Treatments Start: 10/29/19 11:20 Freq: Status: Active Protocol: Document 04/27/20 12:52 [facility] (Rec: 04/27/20 13:00 [facility] [id number]) Therapeutic Exercises Sidelying Exercises 3 Sidelying Exercise Name basking seal on table then over edge Side left Reps/Minutes 10 Manual Therapy Treatment Soft Tissue Mobilization 5 Body Location QL & ant iliac crest Mobilization Type Rolling,Sustained Pressure Intensity/Depth Moderate Body Position Sidelying Comments basking seal 3 Body Location ES L Mobilization Type Rolling Intensity/Depth Moderate Comments basking seal Neuro Re-Education Treatment Other Activities PNF Details ant elevation & post depression L Comments 1. rhythmic initiation 2. sustained hold end range 3. COI with pelvis & LE patterns 4. concentric reversals with pelvis & LE patterns PT-OP-R Modalities Start: 10/29/19 11:20 Freq: Status: Active Protocol: Document 04/25/20 16:26 [facility] (Rec: 04/25/20 16:42 [facility] [id number]) Hot Pack/Cold Pack Treatment Hot Pack Location lumbar & L knee Patient Position Hooklying Treatment Duration (minutes) 15 PT-OP-T Assessment and Plan Start: 10/29/19 11:20 Freq: Status: Active Protocol: Document 04/27/20 12:52 [facility] (Rec: 04/27/20 13:00 [facility] [id number]) Physical Therapy Assessment Goals [facility] Goal (LTG) Pt will be able to play cards with friends in sitting without inc pain greater than 2/10 02/03- pt able to play 1.75 games but not full 2 games LTG Duration 06/06/20 Three Short Term Goal (STG) Pt will present with good standing and sitting posture without cueing. 02/03-min cueing required 04/06-significantly improved with improved function demonstrated STG Duration 04/26/20 Pe Manager Goal (LTG) Pt will have improved gait with demonstrating improved push off B in order to dec instances of L knee and hip pain. 02/03-dec push off today d.t fall so pt had very uneven gait d/t feeling sore LTG Duration 06/06/20 Two Pe Manager Goal (LTG) Pt will be able to do lateral and twisting motions without pain in order to allow her to do typical kitchen movements and paly with grandkids without pain. 02/03-no issues with grand kids , still some knee painw ith pivoting in kitchen LTG Duration 06/06/20 One Impairment strength Short Term Goal (STG) Pt will be indep with HEP. STG Duration achieved progerssing as needed Pe Manager Goal (LTG) Pt will ahve 5/5 LE strength and 4/5 LPM and VCT in order to demonstrate improved postural stability and core stabilityt o allow her to do typical activities in kitchen and with grandkids without inc pain. 02/03-improving LTG Duration 06/06/20 Assessment Summary Assessment Pt did better with PNF patterns today and was able to off the EOB basking seal without any pain today. Improved pelvic ROM today and facilition of appropriate patterns in s/l. Physical Therapy Plan Frequency and Duration Frequency of Treatment 2x/Week Duration of Treatment 2 months Plan of Care Start Date 04/06/20 Plan of Care End Date 06/06/20 Next Visit Focus/Plan Next Note Type Treatment Note Next Visit Plan PNF B side pelvis, work on gait again, work on postural stacking
--- NOTE | 2020-05-02 13:49 | PT.OTN ---
Current Diagnoses Pain in left hip (05/02/20) Pain in left knee (05/02/20) Low back pain (05/02/20) Difficulty in walking, not elsewhere classified (05/02/20) Abnormal posture (05/02/20) Weakness (05/02/20) Physical Therapy Treatment Note PT-OP-A Visit Information Start: 10/29/19 11:20 Freq: Status: Active Protocol: Document 05/02/20 13:02 [facility] (Rec: 05/02/20 13:49 [facility] [id number]) Out-Patient Physical Therapy Visit Information Visit Information Visit Type Treatment Note Visit Note 05/04 Visit Start Time 13:03 Visit Stop Time 13:45 Total Visit Minutes 42 Visit Number 21 Number of NEUROLOGY PHYSICIAN Visits 0 PT-OP-B Current Condition Start: 10/29/19 11:20 Freq: Status: Active Protocol: Document 12/07/19 09:08 [facility] (Rec: 12/07/19 10:34 [facility] [id number]) Current Condition History of Current Condition Onset Date knee pain about 3 months ago;3 weeks sciatic pain Current Complaints L knee pain & L LB & hip pain History of Current Condition LBP/hip eval 12/07-Pt has history of LBP which she improved with PT but still had some sharp pains after sitting. After sitting playing cards, pt stood and had pain down leg that was excruciating . 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 Pt started recently to have L knee pain and was told she needs a TKA. She cannot have sx until her is done with cancer treatment in 4 moths hopefully . She had an infection in her L knee that idd not do much. She gets a sharp LBP and has a loss of strength where she feels like she is going to fall in L LBP and L hip. She has not been walking recently but she has been really active with grandkids. Pt reprots the L knee pain has just gradually started and started burning and disturbing sleep at night. Prior Treatments and Tests PT for LBP, coritzone injection PT-OP-C Subjective Start: 10/29/19 11:20 Freq: Status: Active Protocol: Document 05/02/20 13:02 [facility] (Rec: 05/02/20 13:49 [facility] [id number]) OP-PT Subjective Patient Comments Patient Comments Pt reporgs overall doing well. Some difficulty weith bending with yard work and playing with dog PT-OP-F Manual Assessment Start: 10/29/19 11:20 Freq: Status: Active Protocol: Document 12/07/19 09:08 [facility] (Rec: 12/07/19 10:34 [facility] [id number]) Manual Assessments Soft Tissue Assessment Soft Tissue Mobility Assessment tightness L iliacus, L glutes PT-OP-G Mobility & Gait Start: 10/29/19 11:20 Freq: Status: Active Protocol: Document 12/07/19 09:08 [facility] (Rec: 12/07/19 10:34 [facility] [id number]) OP Gait Assessment Comments Gait Comments Dec wt accpetance on LLE with lat lean over LLE with stance on LLE, dec push off B L>R; overall inc rotational push off PT-OP-J Posture/Palpation/Skin Start: 10/29/19 11:20 Freq: Status: Active Protocol: Document 04/06/20 16:50 [facility] (Rec: 04/06/20 18:35 [facility] [id number]) Posture Evaluation Meenakshi Postural Classification System Meenakshi Postural Classifications Vertical/Posterior Vertebral Compression Test 4 Lumbar Protective Mechanism Left AP 2 Lumbar Protective Mechanism Right AP 3 Lumbar Protective Mechanism Left PA 3 Lumbar Protective Mechanism Right PA 4 PT-OP-K Range of Motion Start: 10/29/19 11:20 Freq: Status: Active Protocol: Document 10/29/19 11:22 [facility] (Rec: 10/29/19 12:07 [facility] [id number]) Knee Goniometric Range of Motion Knee Right Flexion Active (degrees) 129 Extension Active (degrees) 0 Left Flexion Active (degrees) 124 Extension Active (degrees) 5 PT-OP-L Special Tests Start: 10/29/19 11:20 Freq: Status: Active Protocol: Document 12/07/19 09:08 [facility] (Rec: 12/07/19 10:34 [facility] [id number]) Special Tests Lumbar Spine Special Tests Slump Test Results L positive Straight Leg Raise Test Results L positive PT-OP-M Strength Start: 10/29/19 11:20 Freq: Status: Active Protocol: Document 04/06/20 16:50 [facility] (Rec: 04/06/20 18:35 [facility] [id number]) Hip Strength Hip Manual Muscle Testing Right Flexion (L2) 4+ Good+ Extension (S1) 4 Good Abduction 4 Good Adduction 4 Good External Rotation 4+ Good+ Internal Rotation 5 Normal Comments pain in LB w/ext Left Flexion (L2) 4 Good Extension (S1) 4 Good Abduction 4 Good Adduction 4 Good External Rotation 4- Good- Internal Rotation 4 Good Knee Strength Knee Manual Muscle Testing Left Flexion (S2) 5 Normal Extension (L3) 4+ Good+ Right Flexion (S2) 5 Normal Extension (L3) 5 Normal Ankle/Foot Strength Ankle and Foot Manual Muscle Testing Right Dorsiflexion (L4) 5 Normal Plantarflexion (S1) 5 Normal Left Dorsiflexion (L4) 5 Normal Plantarflexion (S1) 5 Normal Comments tested PF seated B PT-OP-Q Treatments Start: 10/29/19 11:20 Freq: Status: Active Protocol: Document 05/02/20 13:02 [facility] (Rec: 05/02/20 13:49 [facility] [id number]) Manual Therapy Treatment Soft Tissue Mobilization 5 Body Location QL & ant iliac crestB Mobilization Type Rolling,Sustained Pressure Intensity/Depth Moderate Body Position Sidelying Comments basking seal Neuro Re-Education Treatment Other Activities PNF Details ant elevation & post depression B Comments 1. rhythmic initiation 2. sustained hold end range 3. COI with pelvis & LE patterns 4. concentric reversals with pelvis & LE patterns PT-OP-R Modalities Start: 10/29/19 11:20 Freq: Status: Active Protocol: Document 05/02/20 13:02 [facility] (Rec: 05/02/20 13:49 [facility] [id number]) Hot Pack/Cold Pack Treatment Hot Pack Location lumbar & L knee Patient Position Hooklying Treatment Duration (minutes) 15 PT-OP-T Assessment and Plan Start: 10/29/19 11:20 Freq: Status: Active Protocol: Document 05/02/20 13:02 [facility] (Rec: 05/02/20 13:49 [facility] [id number]) Physical Therapy Assessment Goals Four Fdc Goal (LTG) Pt will be able to play cards with friends in sitting without inc pain greater than 2/10 02/03- pt able to play 1.75 games but not full 2 games LTG Duration 06/06/20 Three Short Term Goal (STG) Pt will present with good standing and sitting posture without cueing. 02/03-min cueing required 04/06-significantly improved with improved function demonstrated STG Duration 04/26/20 Fdc Goal (LTG) Pt will have improved gait with demonstrating improved push off B in order to dec instances of L knee and hip pain. 02/03-dec push off today d.t fall so pt had very uneven gait d/t feeling sore LTG Duration 06/06/20 Two Fdc Goal (LTG) Pt will be able to do lateral and twisting motions without pain in order to allow her to do typical kitchen movements and paly with grandkids without pain. 02/03-no issues with grand kids , still some knee painw ith pivoting in kitchen LTG Duration 06/06/20 One Impairment strength Short Term Goal (STG) Pt will be indep with HEP. STG Duration achieved progerssing as needed Fdc Goal (LTG) Pt will ahve 5/5 LE strength and 4/5 LPM and VCT in order to demonstrate improved postural stability and core stabilityt o allow her to do typical activities in kitchen and with grandkids without inc pain. 02/03-improving LTG Duration 06/06/20 Assessment Summary Assessment Improved performance with PNF but has difficulty B with PNF post depression with leg ext. She had improved movement especially on L side today though with less manual restrictions. Physical Therapy Plan Frequency and Duration Frequency of Treatment 2x/Week Duration of Treatment 2 months Plan of Care Start Date 04/06/20 Plan of Care End Date 06/06/20 Next Visit Focus/Plan Next Note Type Treatment Note Next Visit Plan PNF B side pelvis, work on gait again, work on postural stacking, work on lifting
--- NOTE | 2020-05-09 10:38 | PT.OTN ---
Current Diagnoses Pain in left hip (05/09/20) Pain in left knee (05/09/20) Low back pain (05/09/20) Difficulty in walking, not elsewhere classified (05/09/20) Abnormal posture (05/09/20) Weakness (05/09/20) Physical Therapy Treatment Note PT-OP-A Visit Information Start: 10/29/19 11:20 Freq: Status: Active Protocol: Document 05/09/20 09:46 [facility] (Rec: 05/09/20 10:37 [facility] [id number]) Out-Patient Physical Therapy Visit Information Visit Information Visit Type Treatment Note Visit Start Time 09:45 Visit Stop Time 10:27 Total Visit Minutes 42 Visit Number 22 Number of STREETCAR OPERATOR Visits 0 PT-OP-B Current Condition Start: 10/29/19 11:20 Freq: Status: Active Protocol: Document 12/07/19 09:08 [facility] (Rec: 12/07/19 10:34 [facility] [id number]) Current Condition History of Current Condition Onset Date knee pain about 3 months ago;3 weeks sciatic pain Current Complaints L knee pain & L LB & hip pain History of Current Condition LBP/hip eval 12/07-Pt has history of LBP which she improved with PT but still had some sharp pains after sitting. After sitting playing cards, pt stood and had pain down leg that was excruciating . 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 Pt started recently to have L knee pain and was told she needs a TKA. She cannot have sx until her is done with cancer treatment in 4 moths hopefully . She had an infection in her L knee that idd not do much. She gets a sharp LBP and has a loss of strength where she feels like she is going to fall in L LBP and L hip. She has not been walking recently but she has been really active with grandkids. Pt reprots the L knee pain has just gradually started and started burning and disturbing sleep at night. Prior Treatments and Tests PT for LBP, coritzone injection PT-OP-C Subjective Start: 10/29/19 11:20 Freq: Status: Active Protocol: Document 05/09/20 09:46 [facility] (Rec: 05/09/20 10:37 [facility] [id number]) OP-PT Subjective Patient Comments Patient Comments Pt has felt looser since last session. She was able to do 2 hours in the car to [place] and back and then play cards the same day without inc pain. Patient Reported Progress Improving PT-OP-F Manual Assessment Start: 10/29/19 11:20 Freq: Status: Active Protocol: Document 12/07/19 09:08 [facility] (Rec: 12/07/19 10:34 [facility] [id number]) Manual Assessments Soft Tissue Assessment Soft Tissue Mobility Assessment tightness L iliacus, L glutes PT-OP-G Mobility & Gait Start: 10/29/19 11:20 Freq: Status: Active Protocol: Document 12/07/19 09:08 [facility] (Rec: 12/07/19 10:34 [facility] [id number]) OP Gait Assessment Comments Gait Comments Dec wt accpetance on LLE with lat lean over LLE with stance on LLE, dec push off B L>R; overall inc rotational push off PT-OP-J Posture/Palpation/Skin Start: 10/29/19 11:20 Freq: Status: Active Protocol: Document 04/06/20 16:50 [facility] (Rec: 04/06/20 18:35 [facility] [id number]) Posture Evaluation Meenakshi Postural Classification System Meenakshi Postural Classifications Vertical/Posterior Vertebral Compression Test 4 Lumbar Protective Mechanism Left AP 2 Lumbar Protective Mechanism Right AP 3 Lumbar Protective Mechanism Left PA 3 Lumbar Protective Mechanism Right PA 4 PT-OP-K Range of Motion Start: 10/29/19 11:20 Freq: Status: Active Protocol: Document 10/29/19 11:22 [facility] (Rec: 10/29/19 12:07 [facility] [id number]) Knee Goniometric Range of Motion Knee Right Flexion Active (degrees) 129 Extension Active (degrees) 0 Left Flexion Active (degrees) 124 Extension Active (degrees) 5 PT-OP-L Special Tests Start: 10/29/19 11:20 Freq: Status: Active Protocol: Document 12/07/19 09:08 [facility] (Rec: 12/07/19 10:34 [facility] [id number]) Special Tests Lumbar Spine Special Tests Slump Test Results L positive Straight Leg Raise Test Results L positive PT-OP-M Strength Start: 10/29/19 11:20 Freq: Status: Active Protocol: Document 04/06/20 16:50 [facility] (Rec: 04/06/20 18:35 [facility] [id number]) Hip Strength Hip Manual Muscle Testing Right Flexion (L2) 4+ Good+ Extension (S1) 4 Good Abduction 4 Good Adduction 4 Good External Rotation 4+ Good+ Internal Rotation 5 Normal Comments pain in LB w/ext Left Flexion (L2) 4 Good Extension (S1) 4 Good Abduction 4 Good Adduction 4 Good External Rotation 4- Good- Internal Rotation 4 Good Knee Strength Knee Manual Muscle Testing Left Flexion (S2) 5 Normal Extension (L3) 4+ Good+ Right Flexion (S2) 5 Normal Extension (L3) 5 Normal Ankle/Foot Strength Ankle and Foot Manual Muscle Testing Right Dorsiflexion (L4) 5 Normal Plantarflexion (S1) 5 Normal Left Dorsiflexion (L4) 5 Normal Plantarflexion (S1) 5 Normal Comments tested PF seated B PT-OP-Q Treatments Start: 10/29/19 11:20 Freq: Status: Active Protocol: Document 05/09/20 09:46 [facility] (Rec: 05/09/20 10:37 [facility] [id number]) Gait Training Gait Activity gait at wall Description work on post depression/ant elevtion 2 Description work on push off 1 Description wt shifts to 1 step in mirror w/focus on post dperession Manual Therapy Treatment Soft Tissue Mobilization 5 Body Location QL & ant iliac crestB Mobilization Type Rolling,Sustained Pressure Intensity/Depth Moderate Body Position Sidelying Comments basking seal Neuro Re-Education Treatment Other Activities PNF Details ant elevation & post depression B Comments 1. rhythmic initiation 2. sustained hold end range 3. COI with pelvis & LE patterns 4. concentric reversals with pelvis & LE patterns 5. sustained holds in post dep with leg pattern PT-OP-R Modalities Start: 10/29/19 11:20 Freq: Status: Active Protocol: Document 05/02/20 13:02 [facility] (Rec: 05/02/20 13:49 [facility] [id number]) Hot Pack/Cold Pack Treatment Hot Pack Location lumbar & L knee Patient Position Hooklying Treatment Duration (minutes) 15 PT-OP-T Assessment and Plan Start: 10/29/19 11:20 Freq: Status: Active Protocol: Document 05/09/20 09:46 [facility] (Rec: 05/09/20 10:37 [facility] [id number]) Physical Therapy Assessment Goals Four Test Skein Winder Goal (LTG) Pt will be able to play cards with friends in sitting without inc pain greater than 2/10 02/03- pt able to play 1.75 games but not full 2 games LTG Duration 06/06/20 Three Short Term Goal (STG) Pt will present with good standing and sitting posture without cueing. 02/03-min cueing required 04/06-significantly improved with improved function demonstrated STG Duration 04/26/20 Test Skein Winder Goal (LTG) Pt will have improved gait with demonstrating improved push off B in order to dec instances of L knee and hip pain. 02/03-dec push off today d.t fall so pt had very uneven gait d/t feeling sore LTG Duration 06/06/20 Two Test Skein Winder Goal (LTG) Pt will be able to do lateral and twisting motions without pain in order to allow her to do typical kitchen movements and paly with grandkids without pain. 02/03-no issues with grand kids , still some knee painw ith pivoting in kitchen LTG Duration 06/06/20 One Impairment strength Short Term Goal (STG) Pt will be indep with HEP. STG Duration achieved progerssing as needed Test Skein Winder Goal (LTG) Pt will ahve 5/5 LE strength and 4/5 LPM and VCT in order to demonstrate improved postural stability and core stabilityt o allow her to do typical activities in kitchen and with grandkids without inc pain. 02/03-improving LTG Duration 06/06/20 Assessment Summary Assessment Pt cont to improve with pelvis mobility and is improving in ability to apply to slowed down gait. She still tends to wnat to rotate with push off but is able to corrent with manual cued.
--- NOTE | 2020-05-16 10:40 | PT.OTN ---
Current Diagnoses Pain in left hip (05/16/20) Pain in left knee (05/16/20) Low back pain (05/16/20) Difficulty in walking, not elsewhere classified (05/16/20) Abnormal posture (05/16/20) Weakness (05/16/20) Physical Therapy Treatment Note PT-OP-A Visit Information Start: 10/29/19 11:20 Freq: Status: Active Protocol: Document 05/16/20 10:30 [facility] (Rec: 05/16/20 10:39 [facility] [id number]) Out-Patient Physical Therapy Visit Information Visit Information Visit Type Treatment Note Visit Start Time 09:48 Visit Stop Time 10:29 Total Visit Minutes 41 Visit Number 23 Number of FOUNDRY TECHNICIAN Visits 0 PT-OP-B Current Condition Start: 10/29/19 11:20 Freq: Status: Active Protocol: Document 12/07/19 09:08 [facility] (Rec: 12/07/19 10:34 [facility] [id number]) Current Condition History of Current Condition Onset Date knee pain about 3 months ago;3 weeks sciatic pain Current Complaints L knee pain & L LB & hip pain History of Current Condition LBP/hip eval 12/07-Pt has history of LBP which she improved with PT but still had some sharp pains after sitting. After sitting playing cards, pt stood and had pain down leg that was excruciating . 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 Pt started recently to have L knee pain and was told she needs a TKA. She cannot have sx until her is done with cancer treatment in 4 moths hopefully . She had an infection in her L knee that idd not do much. She gets a sharp LBP and has a loss of strength where she feels like she is going to fall in L LBP and L hip. She has not been walking recently but she has been really active with grandkids. Pt reprots the L knee pain has just gradually started and started burning and disturbing sleep at night. Prior Treatments and Tests PT for LBP, coritzone injection PT-OP-C Subjective Start: 10/29/19 11:20 Freq: Status: Active Protocol: Document 05/16/20 10:30 [facility] (Rec: 05/16/20 10:39 [facility] [id number]) OP-PT Subjective Patient Comments Patient Comments Pt reports she is doing overall well. Concerned about positioning for weeding PT-OP-F Manual Assessment Start: 10/29/19 11:20 Freq: Status: Active Protocol: Document 12/07/19 09:08 [facility] (Rec: 12/07/19 10:34 [facility] [id number]) Manual Assessments Soft Tissue Assessment Soft Tissue Mobility Assessment tightness L iliacus, L glutes PT-OP-G Mobility & Gait Start: 10/29/19 11:20 Freq: Status: Active Protocol: Document 12/07/19 09:08 [facility] (Rec: 12/07/19 10:34 [facility] [id number]) OP Gait Assessment Comments Gait Comments Dec wt accpetance on LLE with lat lean over LLE with stance on LLE, dec push off B L>R; overall inc rotational push off PT-OP-J Posture/Palpation/Skin Start: 10/29/19 11:20 Freq: Status: Active Protocol: Document 04/06/20 16:50 [facility] (Rec: 04/06/20 18:35 [facility] [id number]) Posture Evaluation Meenakshi Postural Classification System Meenakshi Postural Classifications Vertical/Posterior Vertebral Compression Test 4 Lumbar Protective Mechanism Left AP 2 Lumbar Protective Mechanism Right AP 3 Lumbar Protective Mechanism Left PA 3 Lumbar Protective Mechanism Right PA 4 PT-OP-K Range of Motion Start: 10/29/19 11:20 Freq: Status: Active Protocol: Document 10/29/19 11:22 [facility] (Rec: 10/29/19 12:07 [facility] [id number]) Knee Goniometric Range of Motion Knee Right Flexion Active (degrees) 129 Extension Active (degrees) 0 Left Flexion Active (degrees) 124 Extension Active (degrees) 5 PT-OP-L Special Tests Start: 10/29/19 11:20 Freq: Status: Active Protocol: Document 12/07/19 09:08 [facility] (Rec: 12/07/19 10:34 [facility] [id number]) Special Tests Lumbar Spine Special Tests Slump Test Results L positive Straight Leg Raise Test Results L positive PT-OP-M Strength Start: 10/29/19 11:20 Freq: Status: Active Protocol: Document 04/06/20 16:50 [facility] (Rec: 04/06/20 18:35 [facility] [id number]) Hip Strength Hip Manual Muscle Testing Right Flexion (L2) 4+ Good+ Extension (S1) 4 Good Abduction 4 Good Adduction 4 Good External Rotation 4+ Good+ Internal Rotation 5 Normal Comments pain in LB w/ext Left Flexion (L2) 4 Good Extension (S1) 4 Good Abduction 4 Good Adduction 4 Good External Rotation 4- Good- Internal Rotation 4 Good Knee Strength Knee Manual Muscle Testing Left Flexion (S2) 5 Normal Extension (L3) 4+ Good+ Right Flexion (S2) 5 Normal Extension (L3) 5 Normal Ankle/Foot Strength Ankle and Foot Manual Muscle Testing Right Dorsiflexion (L4) 5 Normal Plantarflexion (S1) 5 Normal Left Dorsiflexion (L4) 5 Normal Plantarflexion (S1) 5 Normal Comments tested PF seated B PT-OP-Q Treatments Start: 10/29/19 11:20 Freq: Status: Active Protocol: Document 05/16/20 10:30 [facility] (Rec: 05/16/20 10:39 [facility] [id number]) Therapeutic Activity Therapeutic Activity 4 Comments 1. position for weeding 2. position for housework like laundry 3. edu on lifting and housework avoiding bending & twisting & do hip hinge and/or squat Gait Training Gait Activity 1 Description wt shifts to 1 step in mirror w/focus on post dperession Manual Therapy Treatment Soft Tissue Mobilization 1 Body Location L iliacus Mobilization Type Sustained Pressure Comments modified rain test position PT-OP-R Modalities Start: 10/29/19 11:20 Freq: Status: Active Protocol: Document 05/02/20 13:02 [facility] (Rec: 05/02/20 13:49 [facility] [id number]) Hot Pack/Cold Pack Treatment Hot Pack Location lumbar & L knee Patient Position Hooklying Treatment Duration (minutes) 15 PT-OP-T Assessment and Plan Start: 10/29/19 11:20 Freq: Status: Active Protocol: Document 05/16/20 10:30 [facility] (Rec: 05/16/20 10:39 [facility] [id number]) Physical Therapy Assessment Goals Four Head Of Mobile Goal (LTG) Pt will be able to play cards with friends in sitting without inc pain greater than 2/10 02/03- pt able to play 1.75 games but not full 2 games LTG Duration 06/06/20 Three Short Term Goal (STG) Pt will present with good standing and sitting posture without cueing. 02/03-min cueing required 04/06-significantly improved with improved function demonstrated STG Duration 04/26/20 Senior Care Goal (LTG) Pt will have improved gait with demonstrating improved push off B in order to dec instances of L knee and hip pain. 02/03-dec push off today d.t fall so pt had very uneven gait d/t feeling sore LTG Duration 06/06/20 Two Senior Care Goal (LTG) Pt will be able to do lateral and twisting motions without pain in order to allow her to do typical kitchen movements and paly with grandkids without pain. 02/03-no issues with grand kids , still some knee painw ith pivoting in kitchen LTG Duration 06/06/20 One Impairment strength Short Term Goal (STG) Pt will be indep with HEP. STG Duration achieved progerssing as needed Senior Care Goal (LTG) Pt will ahve 5/5 LE strength and 4/5 LPM and VCT in order to demonstrate improved postural stability and core stabilityt o allow her to do typical activities in kitchen and with grandkids without inc pain. 02/03-improving LTG Duration 06/06/20 Assessment Summary Assessment Pt doing better with lifting techiniques and wt shift after education and practice. L hip flexor tightness may affect gait position but improved after manual Physical Therapy Plan Frequency and Duration Frequency of Treatment 2x/Week Duration of Treatment 2 months Plan of Care Start Date 04/06/20 Plan of Care End Date 06/06/20 Next Visit Focus/Plan Next Note Type Treatment Note Next Visit Plan PNF B side pelvis, work on gait again, work on postural stacking, work on lifting and functional activities
--- NOTE | 2020-05-26 10:33 | PT.OTN ---
Current Diagnoses Pain in left hip (05/26/20) Pain in left knee (05/26/20) Low back pain (05/26/20) Difficulty in walking, not elsewhere classified (05/26/20) Abnormal posture (05/26/20) Weakness (05/26/20) Physical Therapy Treatment Note PT-OP-A Visit Information Start: 10/29/19 11:20 Freq: Status: Active Protocol: Document 05/26/20 09:47 [facility] (Rec: 05/26/20 10:33 [facility] [id number]) Out-Patient Physical Therapy Visit Information Visit Information Visit Type Treatment Note Visit Start Time 09:48 Visit Stop Time 10:43 Total Visit Minutes 55 Visit Number 24 Number of B[employer] SCHOOL PSYCHOLOGIST Visits 0 PT-OP-B Current Condition Start: 10/29/19 11:20 Freq: Status: Active Protocol: Document 12/07/19 09:08 [facility] (Rec: 12/07/19 10:34 [facility] [id number]) Current Condition History of Current Condition Onset Date knee pain about 3 months ago;3 weeks sciatic pain Current Complaints L knee pain & L LB & hip pain History of Current Condition LBP/hip eval 12/07-Pt has history of LBP which she improved with PT but still had some sharp pains after sitting. After sitting playing cards, pt stood and had pain down leg that was excruciating . 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 Pt started recently to have L knee pain and was told she needs a TKA. She cannot have sx until her is done with cancer treatment in 4 moths hopefully . She had an infection in her L knee that idd not do much. She gets a sharp LBP and has a loss of strength where she feels like she is going to fall in L LBP and L hip. She has not been walking recently but she has been really active with grandkids. Pt reprots the L knee pain has just gradually started and started burning and disturbing sleep at night. Prior Treatments and Tests PT for LBP, coritzone injection PT-OP-C Subjective Start: 10/29/19 11:20 Freq: Status: Active Protocol: Document 05/26/20 09:47 [facility] (Rec: 05/26/20 10:33 [facility] [id number]) OP-PT Subjective Patient Comments Patient Comments Pt reprots no sharp pains but still some inc pain Patient Reported Progress Improving PT-OP-F Manual Assessment Start: 10/29/19 11:20 Freq: Status: Active Protocol: Document 12/07/19 09:08 [facility] (Rec: 12/07/19 10:34 [facility] [id number]) Manual Assessments Soft Tissue Assessment Soft Tissue Mobility Assessment tightness L iliacus, L glutes PT-OP-G Mobility & Gait Start: 10/29/19 11:20 Freq: Status: Active Protocol: Document 12/07/19 09:08 [facility] (Rec: 12/07/19 10:34 [facility] [id number]) OP Gait Assessment Comments Gait Comments Dec wt accpetance on LLE with lat lean over LLE with stance on LLE, dec push off B L>R; overall inc rotational push off PT-OP-J Posture/Palpation/Skin Start: 10/29/19 11:20 Freq: Status: Active Protocol: Document 04/06/20 16:50 [facility] (Rec: 04/06/20 18:35 [facility] [id number]) Posture Evaluation Meenakshi Postural Classification System Meenakshi Postural Classifications Vertical/Posterior Vertebral Compression Test 4 Lumbar Protective Mechanism Left AP 2 Lumbar Protective Mechanism Right AP 3 Lumbar Protective Mechanism Left PA 3 Lumbar Protective Mechanism Right PA 4 PT-OP-K Range of Motion Start: 10/29/19 11:20 Freq: Status: Active Protocol: Document 10/29/19 11:22 [facility] (Rec: 10/29/19 12:07 [facility] [id number]) Knee Goniometric Range of Motion Knee Right Flexion Active (degrees) 129 Extension Active (degrees) 0 Left Flexion Active (degrees) 124 Extension Active (degrees) 5 PT-OP-L Special Tests Start: 10/29/19 11:20 Freq: Status: Active Protocol: Document 12/07/19 09:08 [facility] (Rec: 12/07/19 10:34 [facility] [id number]) Special Tests Lumbar Spine Special Tests Slump Test Results L positive Straight Leg Raise Test Results L positive PT-OP-M Strength Start: 10/29/19 11:20 Freq: Status: Active Protocol: Document 04/06/20 16:50 [facility] (Rec: 04/06/20 18:35 [facility] [id number]) Hip Strength Hip Manual Muscle Testing Right Flexion (L2) 4+ Good+ Extension (S1) 4 Good Abduction 4 Good Adduction 4 Good External Rotation 4+ Good+ Internal Rotation 5 Normal Comments pain in LB w/ext Left Flexion (L2) 4 Good Extension (S1) 4 Good Abduction 4 Good Adduction 4 Good External Rotation 4- Good- Internal Rotation 4 Good Knee Strength Knee Manual Muscle Testing Left Flexion (S2) 5 Normal Extension (L3) 4+ Good+ Right Flexion (S2) 5 Normal Extension (L3) 5 Normal Ankle/Foot Strength Ankle and Foot Manual Muscle Testing Right Dorsiflexion (L4) 5 Normal Plantarflexion (S1) 5 Normal Left Dorsiflexion (L4) 5 Normal Plantarflexion (S1) 5 Normal Comments tested PF seated B PT-OP-Q Treatments Start: 10/29/19 11:20 Freq: Status: Active Protocol: Document 05/26/20 09:47 [facility] (Rec: 05/26/20 10:33 [facility] [id number]) Therapeutic Exercises Supine Exercises 6 Supine Exercise Name TA w/heel slides Side bilateral Reps/Minutes 10 5 Supine Exercise Name TA w/BKFO Side bilateral Reps/Minutes 10 Standing Exercises 4 Standing Exercise Name wall posture Therapeutic Activity Therapeutic Activity 4 Name seated supported w/use of towel/coat behind back & unsupported sit posture Manual Therapy Treatment Soft Tissue Mobilization 5 Body Location QL & ant iliac crestB Mobilization Type Rolling,Sustained Pressure Intensity/Depth Moderate Body Position Sidelying Comments basking seal Neuro Re-Education Treatment Other Activities PNF Details ant elevation & post depression B Comments 1. rhythmic initiation 2. sustained hold end range 3. COI with pelvis & LE patterns 4. concentric reversals with pelvis & LE patterns 5. sustained holds in post dep with leg pattern PT-OP-R Modalities Start: 10/29/19 11:20 Freq: Status: Active Protocol: Document 05/26/20 09:47 [facility] (Rec: 05/26/20 10:33 [facility] [id number]) Hot Pack/Cold Pack Treatment Hot Pack Location lumbar Patient Position Hooklying Treatment Duration (minutes) 15 PT-OP-T Assessment and Plan Start: 10/29/19 11:20 Freq: Status: Active Protocol: Document 05/26/20 09:47 [facility] (Rec: 05/26/20 10:33 [facility] [id number]) Physical Therapy Assessment Goals Four Artificial Plastic Eye Maker Goal (LTG) Pt will be able to play cards with friends in sitting without inc pain greater than 2/10 02/03- pt able to play 1.75 games but not full 2 games LTG Duration 06/06/20 Three Short Term Goal (STG) Pt will present with good standing and sitting posture without cueing. 02/03-min cueing required 04/06-significantly improved with improved function demonstrated STG Duration 04/26/20 Intermediate Goal (LTG) Pt will have improved gait with demonstrating improved push off B in order to dec instances of L knee and hip pain. 02/03-dec push off today d.t fall so pt had very uneven gait d/t feeling sore LTG Duration 06/06/20 Two Intermediate Goal (LTG) Pt will be able to do lateral and twisting motions without pain in order to allow her to do typical kitchen movements and paly with grandkids without pain. 02/03-no issues with grand kids , still some knee painw ith pivoting in kitchen LTG Duration 06/06/20 One Impairment strength Short Term Goal (STG) Pt will be indep with HEP. STG Duration achieved progerssing as needed Intermediate Goal (LTG) Pt will ahve 5/5 LE strength and 4/5 LPM and VCT in order to demonstrate improved postural stability and core stabilityt o allow her to do typical activities in kitchen and with grandkids without inc pain. 02/03-improving LTG Duration 06/06/20 Assessment Summary Assessment Pt did better with posture after wall posture. Significant training required for seated unsupported posture . significant cueing reuqired for core exercises Physical Therapy Plan Frequency and Duration Frequency of Treatment 2x/Week Duration of Treatment 2 months Plan of Care Start Date 04/06/20 Plan of Care End Date 06/06/20 Next Visit Focus/Plan Next Note Type Treatment Note Next Visit Plan PNF B side pelvis, work on gait again, work on postural stacking, and wt shift in sitting, work on lifting and functional activities
--- NOTE | 2020-06-02 16:00 | PT.OTN ---
Current Diagnoses Pain in left hip (06/02/20) Pain in left knee (06/02/20) Low back pain (06/02/20) Difficulty in walking, not elsewhere classified (06/02/20) Abnormal posture (06/02/20) Weakness (06/02/20) Physical Therapy Treatment Note PT-OP-A Visit Information Start: 10/29/19 11:20 Freq: Status: Active Protocol: Document 06/02/20 15:52 [facility] (Rec: 06/02/20 15:59 [facility] [id number]) Out-Patient Physical Therapy Visit Information Visit Information Visit Type Treatment Note Visit Start Time 09:50 Visit Stop Time 10:45 Total Visit Minutes 55 Visit Number 25 Number of TELEVISION ENGINEER Visits 0 PT-OP-B Current Condition Start: 10/29/19 11:20 Freq: Status: Active Protocol: Document 12/07/19 09:08 [facility] (Rec: 12/07/19 10:34 [facility] [id number]) Current Condition History of Current Condition Onset Date knee pain about 3 months ago;3 weeks sciatic pain Current Complaints L knee pain & L LB & hip pain History of Current Condition LBP/hip eval 12/07-Pt has history of LBP which she improved with PT but still had some sharp pains after sitting. After sitting playing cards, pt stood and had pain down leg that was excruciating . 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 Pt started recently to have L knee pain and was told she needs a TKA. She cannot have sx until her is done with cancer treatment in 4 moths hopefully . She had an infection in her L knee that idd not do much. She gets a sharp LBP and has a loss of strength where she feels like she is going to fall in L LBP and L hip. She has not been walking recently but she has been really active with grandkids. Pt reprots the L knee pain has just gradually started and started burning and disturbing sleep at night. Prior Treatments and Tests PT for LBP, coritzone injection PT-OP-C Subjective Start: 10/29/19 11:20 Freq: Status: Active Protocol: Document 06/02/20 15:52 [facility] (Rec: 06/02/20 15:59 [facility] [id number]) OP-PT Subjective Patient Comments Patient Comments Pt reprots overall doing well with exercises. concern re: tightness with exercises PT-OP-F Manual Assessment Start: 10/29/19 11:20 Freq: Status: Active Protocol: Document 12/07/19 09:08 [facility] (Rec: 12/07/19 10:34 [facility] [id number]) Manual Assessments Soft Tissue Assessment Soft Tissue Mobility Assessment tightness L iliacus, L glutes PT-OP-G Mobility & Gait Start: 10/29/19 11:20 Freq: Status: Active Protocol: Document 12/07/19 09:08 [facility] (Rec: 12/07/19 10:34 [facility] [id number]) OP Gait Assessment Comments Gait Comments Dec wt accpetance on LLE with lat lean over LLE with stance on LLE, dec push off B L>R; overall inc rotational push off PT-OP-J Posture/Palpation/Skin Start: 10/29/19 11:20 Freq: Status: Active Protocol: Document 04/06/20 16:50 [facility] (Rec: 04/06/20 18:35 [facility] [id number]) Posture Evaluation Meenakshi Postural Classification System Meenakshi Postural Classifications Vertical/Posterior Vertebral Compression Test 4 Lumbar Protective Mechanism Left AP 2 Lumbar Protective Mechanism Right AP 3 Lumbar Protective Mechanism Left PA 3 Lumbar Protective Mechanism Right PA 4 PT-OP-K Range of Motion Start: 10/29/19 11:20 Freq: Status: Active Protocol: Document 10/29/19 11:22 [facility] (Rec: 10/29/19 12:07 [facility] [id number]) Knee Goniometric Range of Motion Knee Right Flexion Active (degrees) 129 Extension Active (degrees) 0 Left Flexion Active (degrees) 124 Extension Active (degrees) 5 PT-OP-L Special Tests Start: 10/29/19 11:20 Freq: Status: Active Protocol: Document 12/07/19 09:08 [facility] (Rec: 12/07/19 10:34 [facility] [id number]) Special Tests Lumbar Spine Special Tests Slump Test Results L positive Straight Leg Raise Test Results L positive PT-OP-M Strength Start: 10/29/19 11:20 Freq: Status: Active Protocol: Document 04/06/20 16:50 [facility] (Rec: 04/06/20 18:35 [facility] [id number]) Hip Strength Hip Manual Muscle Testing Right Flexion (L2) 4+ Good+ Extension (S1) 4 Good Abduction 4 Good Adduction 4 Good External Rotation 4+ Good+ Internal Rotation 5 Normal Comments pain in LB w/ext Left Flexion (L2) 4 Good Extension (S1) 4 Good Abduction 4 Good Adduction 4 Good External Rotation 4- Good- Internal Rotation 4 Good Knee Strength Knee Manual Muscle Testing Left Flexion (S2) 5 Normal Extension (L3) 4+ Good+ Right Flexion (S2) 5 Normal Extension (L3) 5 Normal Ankle/Foot Strength Ankle and Foot Manual Muscle Testing Right Dorsiflexion (L4) 5 Normal Plantarflexion (S1) 5 Normal Left Dorsiflexion (L4) 5 Normal Plantarflexion (S1) 5 Normal Comments tested PF seated B PT-OP-Q Treatments Start: 10/29/19 11:20 Freq: Status: Active Protocol: Document 06/02/20 15:52 [facility] (Rec: 06/02/20 15:59 [facility] [id number]) Therapeutic Activity Therapeutic Activity 4 Name seated unsupported posture & work on thoracic ext 3 Name hip hinging and working on rotationing by moving entire body in sitting Manual Therapy Treatment Soft Tissue Mobilization 5 Body Location QL & ant iliac crest L Mobilization Type Rolling,Sustained Pressure Intensity/Depth Moderate Body Position Sidelying Comments basking seal Self-Care/Home Management Treatment Education Patient Education Home Exercise Program Other Education importance of cont activity PT-OP-R Modalities Start: 10/29/19 11:20 Freq: Status: Active Protocol: Document 06/02/20 15:52 [facility] (Rec: 06/02/20 16:00 [facility] [id number]) Hot Pack/Cold Pack Treatment Hot Pack Location lumbar Patient Position Hooklying Treatment Duration (minutes) 15 PT-OP-T Assessment and Plan Start: 10/29/19 11:20 Freq: Status: Active Protocol: Document 06/02/20 15:52 [facility] (Rec: 06/02/20 15:59 [facility] [id number]) Physical Therapy Assessment Goals Four Ram Press Operator Goal (LTG) Pt will be able to play cards with friends in sitting without inc pain greater than 2/10 02/03- pt able to play 1.75 games but not full 2 games LTG Duration 06/06/20 Three Short Term Goal (STG) Pt will present with good standing and sitting posture without cueing. 02/03-min cueing required 04/06-significantly improved with improved function demonstrated STG Duration 04/26/20 Shelter Goal (LTG) Pt will have improved gait with demonstrating improved push off B in order to dec instances of L knee and hip pain. 02/03-dec push off today d.t fall so pt had very uneven gait d/t feeling sore LTG Duration 06/06/20 Two Shelter Goal (LTG) Pt will be able to do lateral and twisting motions without pain in order to allow her to do typical kitchen movements and paly with grandkids without pain. 02/03-no issues with grand kids , still some knee painw ith pivoting in kitchen LTG Duration 06/06/20 One Impairment strength Short Term Goal (STG) Pt will be indep with HEP. STG Duration achieved progerssing as needed Ram Press Operator Goal (LTG) Pt will ahve 5/5 LE strength and 4/5 LPM and VCT in order to demonstrate improved postural stability and core stabilityt o allow her to do typical activities in kitchen and with grandkids without inc pain. 02/03-improving LTG Duration 06/06/20 Assessment Summary Assessment Pt showed better undersatndin with posture today and understanding importance of HEP. She is getting clsoer to d/c and assessment of dc will be made next session. Physical Therapy Plan Frequency and Duration Frequency of Treatment 2x/Week Duration of Treatment 2 months Plan of Care Start Date 04/06/20 Plan of Care End Date 06/06/20 Next Visit Focus/Plan Next Note Type Progress Note Next Visit Plan POC vs DC. review HEP
--- NOTE | 2020-06-16 10:34 | PT.OPPOC ---
Physical, Occupational & Speech Therapy At [facility] Current Diagnoses Pain in left hip (06/16/20) Pain in left knee (06/16/20) Low back pain (06/16/20) Difficulty in walking, not elsewhere classified (06/16/20) Abnormal posture (06/16/20) Weakness (06/16/20) Visit Care Team Role Provider Type Nichelle Roy MD Attending Provider Physician Primary Care Provider Specialty: Family Practice Address: [address] [place] [address], [place], [place], [facility] Email: [email or web address] Plan Of Care PT-OP-T Assessment and Plan Start: 10/29/19 11:20 Freq: Status: Active Protocol: Document 06/16/20 09:28 [facility] (Rec: 06/16/20 10:33 [facility] [id number]) Physical Therapy Assessment Goals Four Fci Goal (LTG) Pt will be able to play cards with friends in sitting without inc pain greater than 2/10 02/03- pt able to play 1.75 games but not full 2 games LTG Duration achieved w/breaks occasional Three Short Term Goal (STG) Pt will present with good standing and sitting posture without cueing. 02/03-min cueing required 04/06-significantly improved with improved function demonstrated STG Duration achieved to more efficient Advertising Solicitor Goal (LTG) Pt will have improved gait with demonstrating improved push off B in order to dec instances of L knee and hip pain. 02/03-dec push off today d.t fall so pt had very uneven gait d/t feeling sore LTG Duration significnatly improved Two Fci Goal (LTG) Pt will be able to do lateral and twisting motions without pain in order to allow her to do typical kitchen movements and paly with grandkids without pain. 02/03-no issues with grand kids , still some knee painw ith pivoting in kitchen LTG Duration occasional pain but much better One Impairment strength Short Term Goal (STG) Pt will be indep with HEP. STG Duration achieved progerssing as needed Fci Goal (LTG) Pt will ahve 5/5 LE strength and 4/5 LPM and VCT in order to demonstrate improved postural stability and core stabilityt o allow her to do typical activities in kitchen and with grandkids without inc pain. 02/03-improving LTG Duration significantly progressed Assessment Summary Assessment Pt has made good progress with funcitonal mobility and feels like seh can do some of her exercises to help her manage pain when worse. She is dc at this time to HEP. Physical Therapy Plan Frequency and Duration Frequency of Treatment 1x/Week Duration of Treatment 1 day Plan of Care Start Date 06/16/20 Plan of Care End Date 06/16/20 Therapeutic Interventions Therapeutic Interventions Aquatic Therapy,Balance Training,Gait Training,Home Exercise Program,Joint Mobilizations,Manual Therapy, Neuromuscular Re-education, Patient/Caregiver Education, Self-Care/Home Management,Soft Tissue Mobilization,Taping, Therapeutic Activities, Therapeutic Exercises Modalities Cold Pack/Ice Massage,Electric Stimulation,Hot Packs, Infrared Therapy,Iontophoresis ,Ultrasound Discharge Physical Therapy Discharge Reasons Goals Met Plan of Care Dates Plan of Care Start Date 06/16/20 Plan of Care End Date 06/16/20 Electronically Signed by: Nichelle Hernandez, PT 06/16/20 1030 Please Sign and Return: I have reviewed this Plan of Care and certify that the skilled therapy services above are required to meet the patient?s needs. Physician Signature Date Printed Name and Credentials Clinical Instructor Signature Printed Name and Credentials
--- NOTE | 2020-06-16 10:35 | PT.OTN ---
Current Diagnoses Pain in left hip (06/16/20) Pain in left knee (06/16/20) Low back pain (06/16/20) Difficulty in walking, not elsewhere classified (06/16/20) Abnormal posture (06/16/20) Weakness (06/16/20) Physical Therapy Treatment Note PT-OP-A Visit Information Start: 10/29/19 11:20 Freq: Status: Active Protocol: Document 06/16/20 09:28 [facility] (Rec: 06/16/20 10:33 [facility] [id number]) Out-Patient Physical Therapy Visit Information Visit Information Visit Type Discharge Summary Visit Start Time 09:48 Visit Stop Time 10:30 Total Visit Minutes 42 Visit Number 26 Number of BUTCHERETTE Visits 0 PT-OP-B Current Condition Start: 10/29/19 11:20 Freq: Status: Active Protocol: Document 12/07/19 09:08 [facility] (Rec: 12/07/19 10:34 [facility] [id number]) Current Condition History of Current Condition Onset Date knee pain about 3 months ago;3 weeks sciatic pain Current Complaints L knee pain & L LB & hip pain History of Current Condition LBP/hip eval 12/07-Pt has history of LBP which she improved with PT but still had some sharp pains after sitting. After sitting playing cards, pt stood and had pain down leg that was excruciating . 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 Pt started recently to have L knee pain and was told she needs a TKA. She cannot have sx until her is done with cancer treatment in 4 moths hopefully . She had an infection in her L knee that idd not do much. She gets a sharp LBP and has a loss of strength where she feels like she is going to fall in L LBP and L hip. She has not been walking recently but she has been really active with grandkids. Pt reprots the L knee pain has just gradually started and started burning and disturbing sleep at night. Prior Treatments and Tests PT for LBP, coritzone injection PT-OP-C Subjective Start: 10/29/19 11:20 Freq: Status: Active Protocol: Document 06/16/20 09:28 [facility] (Rec: 06/16/20 10:33 [facility] [id number]) OP-PT Subjective Patient Comments Patient Comments Pt reports doing well and feels like she can now manage her pain Patient Reported Progress Improving PT-OP-F Manual Assessment Start: 10/29/19 11:20 Freq: Status: Active Protocol: Document 12/07/19 09:08 [facility] (Rec: 12/07/19 10:34 [facility] [id number]) Manual Assessments Soft Tissue Assessment Soft Tissue Mobility Assessment tightness L iliacus, L glutes PT-OP-G Mobility & Gait Start: 10/29/19 11:20 Freq: Status: Active Protocol: Document 12/07/19 09:08 [facility] (Rec: 12/07/19 10:34 [facility] [id number]) OP Gait Assessment Comments Gait Comments Dec wt accpetance on LLE with lat lean over LLE with stance on LLE, dec push off B L>R; overall inc rotational push off PT-OP-J Posture/Palpation/Skin Start: 10/29/19 11:20 Freq: Status: Active Protocol: Document 06/16/20 09:28 [facility] (Rec: 06/16/20 10:33 [facility] [id number]) Posture Evaluation Meenakshi Postural Classification System Meenakshi Postural Classifications Vertical/Posterior Vertebral Compression Test 4 Elbow Flexion Test 3 Lumbar Protective Mechanism Left AP 3 Lumbar Protective Mechanism Right AP 3 Lumbar Protective Mechanism Left PA 4 Lumbar Protective Mechanism Right PA 5 PT-OP-K Range of Motion Start: 10/29/19 11:20 Freq: Status: Active Protocol: Document 10/29/19 11:22 [facility] (Rec: 10/29/19 12:07 [facility] [id number]) Knee Goniometric Range of Motion Knee Right Flexion Active (degrees) 129 Extension Active (degrees) 0 Left Flexion Active (degrees) 124 Extension Active (degrees) 5 PT-OP-L Special Tests Start: 10/29/19 11:20 Freq: Status: Active Protocol: Document 12/07/19 09:08 [facility] (Rec: 12/07/19 10:34 [facility] [id number]) Special Tests Lumbar Spine Special Tests Slump Test Results L positive Straight Leg Raise Test Results L positive PT-OP-M Strength Start: 10/29/19 11:20 Freq: Status: Active Protocol: Document 06/16/20 09:28 [facility] (Rec: 06/16/20 10:33 [facility] [id number]) Hip Strength Hip Manual Muscle Testing Right Flexion (L2) 4+ Good+ Extension (S1) 5 Normal Abduction 4+ Good+ Adduction 5 Normal External Rotation 4+ Good+ Internal Rotation 5 Normal Left Flexion (L2) 4+ Good+ Extension (S1) 4 Good Abduction 5 Normal Adduction 5 Normal External Rotation 4+ Good+ Internal Rotation 5 Normal Comments pain in LB w/ext Knee Strength Knee Manual Muscle Testing Left Flexion (S2) 5 Normal Extension (L3) 5 Normal Right Flexion (S2) 5 Normal Extension (L3) 5 Normal Ankle/Foot Strength Ankle and Foot Manual Muscle Testing Right Dorsiflexion (L4) 5 Normal Plantarflexion (S1) 5 Normal Left Dorsiflexion (L4) 5 Normal Plantarflexion (S1) 5 Normal Comments tested PF seated B PT-OP-Q Treatments Start: 10/29/19 11:20 Freq: Status: Active Protocol: Document 06/16/20 09:28 [facility] (Rec: 06/16/20 10:33 [facility] [id number]) Manual Therapy Treatment Soft Tissue Mobilization 5 Body Location QL & ant iliac crest L Mobilization Type Rolling,Sustained Pressure Intensity/Depth Moderate Body Position Prone Joint Mobilizations innominate Joint L Direction AP FM 3 Joint sacrum Direction caudal & UPA L FM PT-OP-R Modalities Start: 10/29/19 11:20 Freq: Status: Active Protocol: Document 06/02/20 15:52 [facility] (Rec: 06/02/20 16:00 [facility] [id number]) Hot Pack/Cold Pack Treatment Hot Pack Location lumbar Patient Position Hooklying Treatment Duration (minutes) 15 PT-OP-T Assessment and Plan Start: 10/29/19 11:20 Freq: Status: Active Protocol: Document 06/16/20 09:28 [facility] (Rec: 06/16/20 10:33 [facility] [id number]) Physical Therapy Assessment Goals Four Lead Javascript Engineer Goal (LTG) Pt will be able to play cards with friends in sitting without inc pain greater than 2/10 02/03- pt able to play 1.75 games but not full 2 games LTG Duration achieved w/breaks occasional Three Short Term Goal (STG) Pt will present with good standing and sitting posture without cueing. 02/03-min cueing required 04/06-significantly improved with improved function demonstrated STG Duration achieved to more efficient Lead Javascript Engineer Goal (LTG) Pt will have improved gait with demonstrating improved push off B in order to dec instances of L knee and hip pain. 02/03-dec push off today d.t fall so pt had very uneven gait d/t feeling sore LTG Duration significnatly improved Two Lead Javascript Engineer Goal (LTG) Pt will be able to do lateral and twisting motions without pain in order to allow her to do typical kitchen movements and paly with grandkids without pain. 02/03-no issues with grand kids , still some knee painw ith pivoting in kitchen LTG Duration occasional pain but much better One Impairment strength Short Term Goal (STG) Pt will be indep with HEP. STG Duration achieved progerssing as needed Lead Javascript Engineer Goal (LTG) Pt will ahve 5/5 LE strength and 4/5 LPM and VCT in order to demonstrate improved postural stability and core stabilityt o allow her to do typical activities in kitchen and with grandkids without inc pain. 02/03-improving LTG Duration significantly progressed Assessment Summary Assessment Pt has made good progress with funcitonal mobility and feels like [facility] can do some of her exercises to help her manage pain when worse. She is dc at this time to [facility]. Physical Therapy Plan Frequency and Duration Frequency of Treatment 1x/Week Duration of Treatment 1 day Plan of Care Start Date 06/16/20 Plan of Care End Date 06/16/20 Therapeutic Interventions Therapeutic Interventions Aquatic Therapy,Balance Training,Gait Training,Home Exercise Program,Joint Mobilizations,Manual Therapy, Neuromuscular Re-education, Patient/Caregiver Education, Self-Care/Home Management,Soft Tissue Mobilization,Taping, Therapeutic Activities, Therapeutic Exercises Modalities Cold Pack/Ice Massage,Electric Stimulation,Hot Packs, Infrared Therapy,Iontophoresis ,Ultrasound Discharge Physical Therapy Discharge Reasons Goals Met
== END 2020-06-22 10:41 | disposition home or self-care (01) ==
LOC: PHYS 09:45
PROVIDERS: PCP Family Medicine; Visit Provider Family Medicine
DX: M25.562 Pain in left knee (principal); R53.1 Weakness; R29.3 Abnormal posture; M54.5 Low back pain; M25.552 Pain in left hip; R26.2 Difficulty in walking, not elsewhere classified
CPT/HCPCS: 97010; 97110; 97112; 97116; 97140; 97162; 97164; 97530; 97535

== ENCOUNTER → 2020-06-21 16:46 | Outpatient (CLI) | payer MEDICARE, OTHER, SELFPAY ==
--- NOTE | 2020-06-21 16:49 | DI.MG.S_ITS ---
BILATERAL DIGITAL SCREENING MAMMOGRAM 3D/2D WITH CAD: 06/21/2020 CLINICAL: Routine screening. Comparison is made to exam dated: 04/01/2018 mammogram - outside location. The tissue of both breasts is heterogeneously dense. This may lower the sensitivity of mammography. Current study was also evaluated with a Computer Aided Detection (CAD) system. There are benign calcifications in both breasts. No significant masses, calcifications, or other findings are seen in either breast. There has been no significant interval change. IMPRESSION: There is no mammographic evidence of malignancy. A 1 year screening mammogram is recommended. This exam was interpreted at Station ID: [id number]. NOTE: For mammograms, a report in lay terms will be sent to the patient. Approximately 15% of breast malignancies will not be visualized mammographically. In the management of a palpable breast mass, a negative mammogram must not discourage biopsy of a clinically suspicious lesion. Electronically Signed By: Deann way/willy:06/21/2020 17:19:08 letter sent: Normal Exam ACR BI-RADS Category 2: Benign Finding(s) 3342F
== END ==
PROVIDERS: PCP Family Medicine; Referring Provider Family Medicine; Visit Provider Family Medicine
DX: Z12.31 Encounter for screening mammogram for malignant neoplasm of breast (principal)
CPT/HCPCS: 77063; 77067

== ENCOUNTER → 2021-04-18 11:06 | Outpatient (CLI) | payer MEDICARE, OTHER, SELFPAY ==
[2021-04-18 12:02] LABS: Add Manual Diff / Slide Review NO; Basophils Absolute Auto 100 /uL (0-100); Eosinophils Absolute Auto 200 /uL (0-450); Eosinophils Percent Auto 2.5 % (2-4); Hematocrit 42.3 % (36-46); Hemoglobin 14.7 g/dL (12.0-16.0); Lymphocytes Absolute Auto 1900 /uL (1100-4500); Mean Corpuscular HGB Conc 34.8 % (30-36); Mean Corpuscular Volume 86.2 fL (80-100); Monocytes Absolute Auto 400 /uL (0-900); Monocytes Percent Auto 6.9 % (3-14); Neutrophils Absolute Auto 3700 /uL (1500-7000); Neutrophils Percent Auto 58.6 % (50-75); Platelet Count 337 X10^3/uL (150-400); Red Blood Cell Count 4.91 X10^6/uL (4.0-5.2); Red Cell Distribution Width 15.2 % (11.6-14.8); White Blood Cell Count 6.2 X10^3/uL (4.5-11.0)
[2021-04-18 12:22] LABS: Alanine Aminotransferase 14 IU/L (<35); Albumin Globulin Ratio 1.3 (1.0-2.8); Alkaline Phosphatase 50 U/L (38-126); Aspartate Aminotransferase 22 IU/L (14-36); BUN Creatinine Ratio 32.8 (6-22); Bilirubin Total 0.4 mg/dL (0.2-1.3); Blood Urea Nitrogen 19 mg/dL (7-17); Calcium 9.2 mg/dL (8.4-10.2); Carbon Dioxide 28 mmol/L (22-32); Chloride 105 mmol/L (98-107); Estimated Glomerular Filt Rate > 60.0 mL/min (>60); Glucose 83 mg/dL (80-110); HEMOLYSIS < 15 (0-50); Potassium 4.5 mmol/L (3.4-5.1); Sodium 140 mmol/L (137-145)
[2021-04-18 12:54] LABS: TSH w/ Reflex to FT4 2.35 uIU/mL (0.47-4.68)
== END ==
PROVIDERS: PCP Family Medicine; Referring Provider Family Medicine; Visit Provider Family Medicine
DX: R53.83 Other fatigue (principal); I10 Essential (primary) hypertension
CPT/HCPCS: 36415; 80053; 84443; 85025

== ENCOUNTER → 2021-08-03 16:58 | Outpatient (CLI) | payer MEDICARE, OTHER, SELFPAY ==
--- NOTE | 2021-08-03 17:01 | DI.MG.S_ITS ---
BILATERAL DIGITAL SCREENING MAMMOGRAM 3D/2D WITH CAD: 08/03/2021 CLINICAL: Routine screening. Family history of breast cancer. Comparison is made to exams dated: 06/21/2020 mammogram - [facility] and 04/01/2018 mammogram - outside location. The tissue of both breasts is heterogeneously dense. This may lower the sensitivity of mammography. Current study was also evaluated with a Computer Aided Detection (CAD) system. There are benign calcifications in both breasts. No significant masses, calcifications, or other findings are seen in either breast. There has been no significant interval change. IMPRESSION: BENIGN There is no mammographic evidence of malignancy. A 1 year screening mammogram is recommended. This exam was interpreted at Station ID: [id number]. NOTE: For mammograms, a report in lay terms will be sent to the patient. Approximately 15% of breast malignancies will not be visualized mammographically. In the management of a palpable breast mass, a negative mammogram must not discourage biopsy of a clinically suspicious lesion. Electronically Signed By: Yahir unger/willy:08/04/2021 08:48:56 letter sent: Normal Exam ACR BI-RADS Category 2: Benign Finding(s) 3342F
== END ==
PROVIDERS: PCP Family Medicine; Referring Provider Family Medicine; Visit Provider Family Medicine
DX: Z12.31 Encounter for screening mammogram for malignant neoplasm of breast (principal); Z80.3 Family history of malignant neoplasm of breast
CPT/HCPCS: 77063; 77067

== ENCOUNTER → 2022-08-08 10:38 | Outpatient (CLI) | payer MEDICARE, OTHER, SELFPAY ==
--- NOTE | 2022-08-08 10:39 | DI.MG.S_ITS ---
BILATERAL DIGITAL SCREENING MAMMOGRAM 3D/2D WITH CAD: 08/08/2022 CLINICAL: Routine screening. Family history of breast cancer. Comparison is made to exams dated: 08/03/2021 mammogram, 06/21/2020 mammogram - [facility], and 04/01/2018 mammogram - outside location. Both breasts are heterogeneously dense, which may obscure small masses (category c / 51-75% glandular tissue). Current study was also evaluated with a Computer Aided Detection (CAD) system. There are benign calcifications in both breasts. There also is a biopsy clip in the left breast. No significant masses, calcifications, or other findings are seen in either breast. There has been no significant interval change. IMPRESSION: BENIGN There is no mammographic evidence of malignancy. A 1 year screening mammogram is recommended. Based on the Tyrer Cuzick model (a risk assessment model) the patient's lifetime risk is 9.2% and her 10 year risk is 7.5%. According to the ACR, ACS, and NCCN guidelines, an annual breast MRI exam along with mammogram is recommended if the patient's lifetime risk is 20% or greater. This exam was interpreted at Station ID: [id number]. NOTE: For mammograms, a report in lay terms will be sent to the patient. Approximately 15% of breast malignancies will not be visualized mammographically. In the management of a palpable breast mass, a negative mammogram must not discourage biopsy of a clinically suspicious lesion. Electronically Signed By: Venus otero/willy:08/08/2022 13:11:07 letter sent: Normal Exam ACR BI-RADS Category 2: Benign Finding(s) 3342F
== END ==
PROVIDERS: PCP Family Medicine; Referring Provider Family Medicine; Visit Provider Family Medicine
DX: Z12.31 Encounter for screening mammogram for malignant neoplasm of breast (principal); Z80.3 Family history of malignant neoplasm of breast
CPT/HCPCS: 77063; 77067

== ENCOUNTER → 2023-06-17 11:55 | Outpatient (CLI) | payer MEDICARE, OTHER, SELFPAY ==
--- NOTE | 2023-06-17 11:57 | DI.RAD.S_ITS ---
PROCEDURE: XR DEXA AXIAL SKELETON INDICATIONS: screening COMPARISON: [facility], CR, DEXA AXIAL SKELETON, 03/05/2018, 15:05. FINDINGS: This blank DEXA report has been sent in error by the PACS system. The correct and complete report will be forthcoming in 1-2 days. Thank you for your patience and understanding. Dictated by: Devon Jara M.D. on 06/17/2023 at 13:36 Approved by: Devon Jara M.D. on 06/17/2023 at 13:37
--- NOTE | 2023-06-17 12:06 | DI.DEXA.S_ITS ---
Bone Density Report Name: DMITRIY GARCIA Age: 72 Sex: Female Ethnicity: White Date of : 1950 Indication: postmenopausal; screening for osteoporosis; Referring Provider: AIDE LARES Study: Bone densitometry was performed. Exam Date: June 17, 2023 Accession number: [id number] Bone Density: Region BMD T-score Z-score Classification AP Spine(L1, L2, L3) 1.148 1.2 3.5 Normal Femoral Neck (Left) 0.693 -1.4 0.6 Osteopenia Total Hip (Left) 0.772 -1.4 0.4 Osteopenia Femoral Neck (Right) 0.719 -1.2 0.9 Osteopenia Total Hip (Right) 0.830 -0.9 0.8 Normal Total Hip Mean 0.801 -1.2 0.6 Osteopenia World Health Organization criteria for BMD impression classify patients as: Normal (T-score at or above -1.0), Osteopenia (T-score between -1.0 and -2.5), or Osteoporosis (T-score at or below -2.5). 10-year Fracture Risk(1): Major Osteoporotic Fracture 11% Hip Fracture 3.2% Reported Risk Factors: [place] (), Neck BMD=0.693, BMI=28.5, smoking (1) FRAX(R) Version 3.08. Fracture probability calculated for an untreated patient. Fracture probability may be lower if the patient has received treatment. Previous Exams: -- Region Exam Age BMD T-score BMD Change BMD Change Date g/cm2 vs Baseline vs Previous -- AP Spine (L1-L3) 06/17/2023 72 1.148 1.2 -0.015 (-1.2%)# -0.015 (-1.2%)# 03/05/2018 67 1.163 1.3 Total Hip(Left) 06/17/2023 72 0.772 -1.4 -0.060 (-7.3%)# -0.060 (-7.3%)# 03/05/2018 67 0.832 -0.9 Total Hip(Right) 06/17/2023 72 0.830 -0.9 0.009 (1.1%)# 0.009 (1.1%)# 03/05/2018 67 0.821 -1.0 -- *Denotes significance at 95% confidence level, LSC for AP Spine = 0.022 g/cm2, LSC for Total Hip = 0.027 g/cm2 # Denotes dissimilar scan types or analysis methods Impression: The patient has low bone mass, based on the Left Total Hip T-score. The patient has an estimated ten-year risk of hip fracture of 3.2% and an estimated ten-year risk of major fracture of 11%, based on the WHO FRAX algorithm. The patient has risk factors, including: smoking. No significant bone loss was observed. Discussion: BONE DENSITY IS LOW AT ONE OR MORE SKELETAL SITES. THE PATIENT'S BMD AND CLINICAL RISK FACTO RS CONTRIBUTE TO THIS PATIENT'S INCREASED RISK OF FRACTURE. This patient's lowest T-score is low at one or more skeletal sites. It meets the World Health Organization's (WHO) criteria for ?low bone mass? (T-score between -1.0 and -2.5). The patient's 10-year risk of hip fracture as calculated by FRAX exceeds the threshold where pharmacological therapy is recommended by the National Osteoporosis Foundation (NOF). However, all treatment decisions require clinical judgment and consideration of individual patient factors, including patient preferences, comorbidities, previous drug use, risk factors not captured in the FRAX model (e.g., frailty, falls, vitamin D deficiency, increased bone turnover, interval significant decline in bone density) and possible under or overestimation of fracture risk by FRAX. The patient should follow a healthful lifestyle (good nutrition with adequate calcium and vitamin D, and appropriate weight-bearing exercise). Follow-Up: Consider a repeat BMD and Vertebral Fracture Assessment (VFA) exam in 2 years or sooner if medically necessary, to reassess this patient's status. Reported by: FREDDIE GRANDA M.D. on 06/17/2023 12:13:00 PM.
== END ==
PROVIDERS: PCP Family Medicine; Referring Provider Family Medicine; Visit Provider Family Medicine
DX: M85.852 Other specified disorders of bone density and structure, left thigh (principal); Z13.820 Encounter for screening for osteoporosis; Z78.0 Asymptomatic menopausal state
CPT/HCPCS: 77080

== ENCOUNTER → 2023-08-27 11:00 | Outpatient (CLI) | payer MEDICARE, OTHER, SELFPAY ==
--- NOTE | 2023-08-27 11:01 | DI.MG.S_ITS ---
BILATERAL DIGITAL SCREENING MAMMOGRAM 3D/2D WITH CAD: 08/27/2023 CLINICAL: Routine screening. Family history of breast cancer. Comparison is made to exams dated: 08/08/2022 mammogram, 08/03/2021 mammogram, 06/21/2020 mammogram - [facility], and 04/01/2018 mammogram - outside location. Both breasts are heterogeneously dense, which may obscure small masses (category c / 51-75% glandular tissue). Current study was also evaluated with a Computer Aided Detection (CAD) system. There are benign calcifications in both breasts. There also is a biopsy clip in the left breast. No significant masses, calcifications, or other findings are seen in either breast. IMPRESSION: BENIGN There is no mammographic evidence of malignancy. A 1 year screening mammogram is recommended. Based on the Tyrer Cuzick model (a risk assessment model) the patient's lifetime risk is 8.6% and her 10 year risk is 7.7%. According to the ACR, ACS, and NCCN guidelines, an annual breast MRI exam along with mammogram is recommended if the patient's lifetime risk is 20% or greater. This exam was interpreted at Station ID: [id number]. NOTE: For mammograms, a report in lay terms will be sent to the patient. Approximately 15% of breast malignancies will not be visualized mammographically. In the management of a palpable breast mass, a negative mammogram must not discourage biopsy of a clinically suspicious lesion. Electronically Signed By: Rafia Siu M.D. esb/:08/27/2023 17:18:22 letter sent: Normal Exam ACR BI-RADS Category 2: Benign Finding(s) 3342F
== END ==
PROVIDERS: PCP Family Medicine; Referring Provider Family Medicine; Visit Provider Family Medicine
DX: Z12.31 Encounter for screening mammogram for malignant neoplasm of breast (principal); Z80.3 Family history of malignant neoplasm of breast
CPT/HCPCS: 77063; 77067

== ENCOUNTER 2023-12-10 13:22 | Emergency (ER) | payer MEDICARE, OTHER, SELFPAY ==
[2023-12-10 13:25] VITALS: PULSE 69; RESP 17; TEMP 36.6; O2SAT 97; BMI 27.4
--- NOTE | 2023-12-10 13:30 | DI.US.S_ITS ---
PROCEDURE: US PERIPH VENOUS LOW EXTREM RT INDICATIONS: RIGHT CALF PAIN TECHNIQUE: Real-time imaging, as well as color and pulse Doppler interrogation, were performed of the lower extremity deep veins from the inguinal ligament to the popliteal fossa, with documentation of the visualized calf veins. COMPARISON: None. FINDINGS: The common femoral, femoral, popliteal, and the visualized calf veins are normally compressible, and free of intraluminal thrombus. Color and pulse Doppler demonstrate normal phasic intraluminal flow. There is normal augmentation response to distal compression maneuver. IMPRESSION: No findings of lower extremity deep venous thrombosis. Dictated by: Christian Ferrer M.D. on 12/10/2023 at 14:27 Approved by: Christian Ferrer M.D. on 12/10/2023 at 14:27
--- NOTE | 2023-12-10 15:31 | ED.EXTPRO ---
HPI - Extremity Problem <Rosangela Daniel PA-C - Last Filed: 12/11/23 11:39> General Chief complaint: Extremity Problem,Nontraumatic Stated complaint: leg pain Time Seen by Provider: 12/10/23 15:31 Source: patient Mode of arrival: Ambulatory History of Present Illness HPI Narrative: Patient is a 73-year-old female who presents with right calf pain. She reports she was holding a dinner democrat last night and midway through she experienced sharp sudden right calf pain. She generally is very healthy, has not had this happen before. She has a history of left knee pain with steroid injections with the orthopedist, previously had some posterior right knee pain that she suspected was a Agudelo's cyst but has never had this diagnosed. She slept overnight, pain has diminished today but she still can feel it. She still feels like her right calf is swollen. She has no numbness or tingling in her foot, is able to ambulate and dorsiflex and plantar flex her foot. She has no history of blood clots, endorses frequent air travel but none for several weeks. Related Data Previous Rx's Medication Instructions Recorded lorazepam 1 mg tablet (Ativan) 1 mg PO QDAY #30 tabs 01/31/17 fluticasone propionate 50 2 spray intranasal Q DAY #47.4 06/05/23 mcg/actuation nasal grams spray,suspension estradiol 0.5 mg tablet 0.5 mg PO BID #180 tabs 07/19/23 Allergies Allergy/AdvReac Type Severity Reaction Status Date / Time No Known Drug Allergies Allergy Verified 12/10/23 13:28 Review of Systems <Rosangela Daniel PA-C - Last Filed: 12/11/23 11:39> Review of Systems ROS Unobtainable: All systems reviewed & are unremarkable except as noted in HPI and below Patient History <Rosangela Daniel PA-C - Last Filed: 12/11/23 11:39> Medical History Neck pain Surgical History Status post hysterectomy (07/07/12) Status post breast biopsy Status post delivery Status post delivery Family History Father Age: 97 Cancer of kidney Incontinence Mother Age: 94 Hypertension Osteoporosis Sister Age: 71 Diabetes mellitus Social History Smoking Status: Never smoker second hand exposure: No alcohol intake: current substance use type: does not use Smoking Status: Never smoker alcohol intake frequency: holidays/special occasions only Substance Use Type: does not use Exam <Rosangela Daniel PA-C - Last Filed: 12/11/23 11:39> Narrative Exam Narrative: GENERAL: 73 year old patient appears stated age. Well-developed patient, appears anxious. NEURO: AOx3. HEAD: Atraumatic. Normocephalic. EYES: Pupils equal round and reactive. Extraocular motions intact. No scleral icterus. No injection or drainage. ENT: Nose without bleeding or purulent drainage. Airway patent. RESPIRATORY: No distress. EXTREMITIES: No appreciable swelling of the right knee, posterior knee, calf. No erythema, warmth. No bruising behind the knee. Strong distal pulses, no pedal edema. No hip or thigh pain or tenderness. Patient is able to dorsiflex and plantar flex the foot normally, without pain. SKIN: No rash or erythema of visible areas Initial Vital Signs Initial Vital Signs: Vital Signs Temperature 98 F 12/10/23 13:25 Pulse Rate 69 12/10/23 13:25 Respiratory Rate 17 12/10/23 13:25 Pulse Oximetry 97 12/10/23 13:25 Oxygen Delivery Method Room Air 12/10/23 13:25 <Milagros Adhikari DO - Last Filed: 12/13/23 07:39> Initial Vital Signs Initial Vital Signs: Vital Signs Temperature 98 F 12/10/23 13:25 Pulse Rate 69 12/10/23 13:25 Respiratory Rate 17 12/10/23 13:25 Pulse Oximetry 97 12/10/23 13:25 Oxygen Delivery Method Room Air 12/10/23 13:25 Course <Rosangela Daniel PA-C - Last Filed: 12/11/23 11:39> Orders Ordered: ED Orders 12/10/23 13:30 US periph venous low extrem rt Stat Vital Signs Vital signs: Vital Signs - 8 hr 12/10/23 13:25 Temperature 98 F Pulse Rate 69 Respiratory Rate 17 Pulse Oximetry 97 Oxygen Delivery Method Room Air <Milagros Adhikari DO - Last Filed: 12/13/23 07:39> Orders Ordered: ED Orders 12/10/23 13:30 US periph venous low extrem rt Stat Vital Signs Vital signs: Vital Signs - 8 hr 12/10/23 13:25 Temperature 98 F Pulse Rate 69 Respiratory Rate 17 Pulse Oximetry 97 Oxygen Delivery Method Room Air MDM - Extremity (Nontraumatic) <Rosangela Daniel PA-C - Last Filed: 12/11/23 11:39> Imaging Data US - DVT: Radiologist's Impression: PROCEDURE: US PERIPH VENOUS LOW EXTREM RT INDICATIONS: RIGHT CALF PAIN TECHNIQUE: Real-time imaging, as well as color and pulse Doppler interrogation, were performed of the lower extremity deep veins from the inguinal ligament to the popliteal fossa, with documentation of the visualized calf veins. COMPARISON: None. FINDINGS: The common femoral, femoral, popliteal, and the visualized calf veins are normally compressible, and free of intraluminal thrombus. Color and pulse Doppler demonstrate normal phasic intraluminal flow. There is normal augmentation response to distal compression maneuver. IMPRESSION: No findings of lower extremity deep venous thrombosis. Dictated by: Christian Ferrer M.D. on 12/10/2023 at 14:27 Approved by: Christian Ferrer M.D. on 12/10/2023 at 14:27 [facility] Narrative Medical decision making narrative: Multiple etiologies for patient's symptoms considered including, but not limited to: Agudelo cyst, ruptured Agudelo cyst, DVT, muscle strain, muscle cramp, superficial vein thrombosis, Achilles tendon rupture. Ultrasound negative for DVT. No ecchymosis which could be a sign of a ruptured cyst. No palpable cyst and no cyst identified on ultrasound. Patient appears very well, is able to ambulate, and states pain is getting better. Suggested continued rest, ice, compression. Patient has compression socks at home and will use these. Return precautions advised. Patient quite anxious that I have not able to give her a definitive diagnosis but we discussed that we have ruled out the potentially life-threatening cause of such pain (DVT) and at this point it is safe to wait and watch. Patient's symptoms improved over duration of stay with above-stated therapies. Findings and discharge diagnosis discussed with patient/family followed by verbalization of understanding Return precautions discussed with patient/family whom verbalize understanding of diagnosis and plan Discharge Plan Departure Patient Disposition: Home Clinical Impression: Pain of right calf Instructions: How To Perform RICE (Rest, Ice, Compress, Elevate) Activity Restrictions/Additional Instructions: *You have been diagnosed with right calf tenderness. There was no evidence of a DVT on your ultrasound. They also did not comment on a Agudelo cyst. I would advise: R: rest. take it easy and listen to your body! I: ice. apply ice for 20 minutes every 2 hours while awake. Do not put ice directly on the skin. C: compression. Gentle compression with melecio wrap, compression stockings or splint will decrease pain and swelling. E: elevation. Keep extremity elevated above the heart whenever possible. Use tylenol or ibuprofen for inflammation and pain. It is generally safe to take up to 3-4grams of tylenol in 24 hours, or 2400mg of ibuprofen in 24 hours. If you have questions about dosing or whether these medications are safe for you, please ask a healthcare provider. If your symptoms do not improve, I would follow up with your PCP or orthopedist. *What to do: *Please continue to take your regular medications as directed. [ ] New medication prescriptions sent to your pharmacy: [ ] [ ] New medication written as a paper prescription [x] No new medications given *Please follow up with your primary care provider in 2-3 days, call for an appointment. Let them know you were seen in the Emergency Department and that we ask that you be seen in follow up. We will electronically transmit a record of today's note if your PCP is in our system *If you do not have a primary care provider please contact the [facility] Resource line at [phone]. They will ask some questions about your medical history and help get you set up with a doctor in the community. *Return to Emergency Department if you should have any new, worsening or concerning symptoms, such as [fever greater than 101 F, shaking chills, worsening pain, persistent vomiting or other concerning symptoms]. Prescriptions: No Action fluticasone propionate 50 mcg/actuation spray,suspension 2 spray Intranasal Q DAY Qty: 47.4 3RF Rx Instructions: Two sprays in each nostril once daily estradiol 0.5 mg tablet 0.5 mg PO BID Qty: 180 1RF Rx Instructions: this is correct dosage, please cancel all previous other doses of this medication lorazepam [Ativan] 1 mg tablet 1 mg PO QDAY Qty: 30 0RF Referrals: Nichelle Roy MD [Primary Care Provider] - Stand Alone Forms: Patient Portal/API ED Sign-out <Milagros Adhikari DO - Last Filed: 12/13/23 07:39> Cosign ED Attending Tato Attestation: I was immediately available in the department for consultation.
[2023-12-10 16:10] VITALS: BP 127/75; PULSE 57; RESP 14; O2SAT 99
== END 2023-12-10 16:10 | disposition home or self-care (01) ==
PROVIDERS: Emergency Provider Physician Assistant; PCP Family Medicine
DX: M79.604 Pain in right leg (principal)
CPT/HCPCS: 93971; 99283

== ENCOUNTER → 2024-06-04 11:15 | Outpatient (CLI) | payer MEDICARE, OTHER, SELFPAY ==
[2024-06-04 12:08] LABS: Appearance Urine UA CLEAR; Bilirubin Urine UA NEGATIVE (NEGATIVE); Color Urine UA YELLOW; Glucose Urine UA NEGATIVE (Negative); Ketones Urine UA NEGATIVE (NEGATIVE); Leukocyte Esterase Urine UA NEGATIVE (NEGATIVE); Nitrite Urine UA NEGATIVE (Negative); Occult Blood Urine UA NEGATIVE (Negative); Protein Urine UA NEGATIVE (Negative); Specific Gravity Urine UA <=1.005 (1.000-1.035); Urobilinogen Urine UA 0.2 E.U./dL (0.2)
[2024-06-04 12:10] LABS: pH Urine UA 5.5 (4.5-8.0)
[2024-06-04 12:22] LABS: Bacteria Urine Few (2-10); Culture Indicated Urine Cult Not Indicated; RBC Urine None Seen (0-5/HPF); Squamous Epithelial Cell Urine 1-5 /HPF (0-5/HPF); Urine Volume 10mL (spun); WBC Urine None Seen (0-5/HPF)
== END ==
LOC: LAB 11:16
PROVIDERS: PCP Family Medicine; Referring Provider Family Medicine; Visit Provider Family Medicine
DX: R30.0 Dysuria (principal)
CPT/HCPCS: 81001

== ENCOUNTER → 2024-07-21 10:38 | Outpatient (CLI) | payer MEDICARE, OTHER, SELFPAY ==
[2024-07-21 12:57] LABS: Cholesterol 188 mg/dL (140-199); Glucose 90 mg/dL (80-110); HDL Cholesterol 62 mg/dL (40-60); LDL Cholesterol Calculated 99 mg/dL (<100); Triglycerides 133 mg/dL (35-150)
[2024-07-22 16:39] LABS: Hep C Virus Ab w/Reflex Quant NEGATIVE s/c (NEGATIVE)
== END ==
PROVIDERS: PCP Family Medicine; Referring Provider Family Medicine; Visit Provider Family Medicine
DX: E78.5 Hyperlipidemia, unspecified (principal); Z13.9 Encounter for screening, unspecified
CPT/HCPCS: 36415; 80061; 82947; 86803

== ENCOUNTER → 2024-12-03 11:12 | Outpatient (CLI) | payer MEDICARE, OTHER, SELFPAY ==
--- NOTE | 2024-12-03 11:14 | DI.MG.S_ITS ---
BILATERAL DIGITAL SCREENING MAMMOGRAM 3D/2D WITH CAD: 12/03/2024 CLINICAL: Routine screening. Comparison is made to exams dated: 08/27/2023 mammogram, 08/08/2022 mammogram, and 08/03/2021 mammogram - [facility]. The breasts are heterogeneously dense, which may obscure small masses (category c / 51-75% glandular tissue). Current study was also evaluated with a Computer Aided Detection (CAD) system. There are benign calcifications in both breasts. There also is a biopsy clip in the left breast. No significant masses, calcifications, or other findings are seen in either breast. There has been no significant interval change. IMPRESSION: BENIGN There is no mammographic evidence of malignancy. A 1 year screening mammogram is recommended. Based on the Tyrer Cuzick model (a risk assessment model) the patient's lifetime risk is 7.9% and her 10 year risk is 7.9%. According to the ACR, ACS, and NCCN guidelines, an annual breast MRI exam along with mammogram is recommended if the patient's lifetime risk is 20% or greater. This exam was interpreted at Station ID: [id number]. NOTE: For mammograms, a report in lay terms will be sent to the patient. Approximately 15% of breast malignancies will not be visualized mammographically. In the management of a palpable breast mass, a negative mammogram must not discourage biopsy of a clinically suspicious lesion. Electronically Signed By: Diego shahid/willy:12/04/2024 06:41:13 letter sent: Normal Exam ACR BI-RADS Category 2: Benign
== END ==
LOC: MAMMO 11:13
PROVIDERS: PCP Family Medicine; Referring Provider Family Medicine; Visit Provider Family Medicine
DX: Z12.31 Encounter for screening mammogram for malignant neoplasm of breast (principal); R92.333 Mammographic heterogeneous density, bilateral breasts
CPT/HCPCS: 77063; 77067

== ENCOUNTER → 2025-11-09 09:54 | Outpatient (CLI) | payer MEDICARE, OTHER, SELFPAY ==
[2025-11-09 10:58] LABS: Add Manual Diff / Slide Review NO; Hematocrit 41.2 % (36-46); Hemoglobin 14.6 g/dL (12.0-16.0); Lymphocytes Absolute Auto 1500 /uL (1100-4500); Mean Corpuscular HGB Conc 35.5 % (30-36); Mean Corpuscular Hemoglobin 30.0 PG (26-34); Mean Corpuscular Volume 84.5 fL (80-100); Platelet Count 343 X10^3/uL (150-400)
[2025-11-09 11:04] LABS: Hemoglobin A1C% w Est Avg Glu 4.5 % (4.0-6.0)
[2025-11-09 11:23] LABS: Alanine Aminotransferase 14 IU/L (<35); Albumin 4.0 g/dL (3.5-5.0); Albumin Globulin Ratio 1.3 (1.0-2.8); Alkaline Phosphatase 66 U/L (38-126); Blood Urea Nitrogen 17 mg/dL (7-17); Calcium 8.9 mg/dL (8.4-10.2); Carbon Dioxide 22 mmol/L (22-32); Chloride 106 mmol/L (98-107); Cholesterol 196 mg/dL (140-199); Estimated Glomerular Filt Rate > 60 mL/min (>60); Globulin 3.0 g/dL (1.7-4.1); Glucose 96 mg/dL (70-99); HDL Cholesterol 86 mg/dL (40-60); HEMOLYSIS < 15 (0-50); Potassium 4.2 mmol/L (3.4-5.1); Sodium 137 mmol/L (137-145); Total Protein 7.0 g/dL (6.3-8.2); Triglycerides 99 mg/dL (35-150)
== END ==
PROVIDERS: PCP Family Medicine; Referring Provider Family Medicine; Visit Provider Family Medicine
DX: R07.89 Other chest pain (principal)
CPT/HCPCS: 36415; 80053; 80061; 83036; 85025